=== PATIENT | male | born 1945 | race Caucasian/White ===

== ENCOUNTER 2018-03-05 07:51 | Emergency (ER) | payer MEDICARE, OTHER ==
[2018-03-05 08:06] VITALS: BP 147/82; PULSE 95; RESP 18; TEMP 97.1
[2018-03-05] MEDS ORDERED: LORazepam 2 MG/ML INJ IM STA (08:40)
--- NOTE | 2018-03-05 08:41 | ED ---
Recheck HPI <Dwight Medina - Last Filed: 03/05/18 08:43> - General Source: patient Mode of arrival: wheelchair Limitations: no limitations, physical limitation <Sara Lowery - Last Filed: 03/05/18 16:35> - General Chief Complaint: Recheck/Abnormal Lab/Rx Stated Complaint: insomnia Time Seen by Provider: 03/05/18 08:14 - History of Present Illness Initial Comments: 72-year-old male patient presents to the emergency department today for evaluation of insomnia. Patient states that he has had issues with insomnia chronically and is treated with a sleeping medication and generally takes morphine for his pain symptoms. Patient states that for the last 2 nights he has been unable to sleep. He states that he feels tired he just can't fall asleep. States he lays in bed awake. Patient states that his morphine was recently cut down from 3 tablets a day to 2 tablets a day and he feels this may be contribute eating. He denies any increased pain. Denies any physical symptoms. States he feels well other than he is just tired. He denies any increased stress, depression, suicidal thoughts, or homicidal ideation. He is requesting something to help him sleep. Patient denies any recent rash, fever, chills, shortness breath, chest pain, abdominal pain, nausea, vomiting, diarrhea , constipation, back pain, numbness, tingling, dizziness, weakness, hematuria, dysuria, urinary urgency, urinary frequency, headache, visual changes, or any other complaints. (Sara Lowery) - Related Data Home Medications Medication Instructions Recorded Confirmed Aspirin 81 mg PO DAILY 05/08/14 03/05/18 Fenofibrate Nanocrystallized 145 mg PO DAILY 05/08/14 03/05/18 [Fenofibrate] Amitriptyline HCl [Elavil] 75 mg PO HS 09/27/14 03/05/18 Dorzolamide HCl/Timolol Maleat 1 drop LEFT EYE BID 09/27/14 03/05/18 [Dorzolamide-Timolol Eye Drops] Flunisolide 1 spray NS BID 09/27/14 03/05/18 HYDROcodone/APAP 10-325MG [[place] 1 each PO Q6H PRN 09/27/14 03/05/18 10-325] MORPHINE ORAL SIDDHARTHA CONC 20mg/mL 60 mg PO Q6H PRN 09/27/14 03/05/18 [Roxanol Oral Soln Conc 20MG/ML] Temazepam 30 mg PO HS PRN 09/27/14 03/05/18 prednisoLONE ACETATE 1% OPHTH 1 drops LEFT EYE Q6H 09/27/14 03/05/18 [Pred Forte 1%] Previous Rx's Medication Instructions Recorded Ciprofloxacin HCl [Cipro] 250 mg PO Q12HR #10 tablet 09/28/14 Zolpidem [Ambien] 5 mg PO HS PRN #3 tab 03/05/18 Allergies Allergy/AdvReac Type Severity Reaction Status Date / Time No Known Allergies Allergy Verified 03/05/18 08:00 Review of Systems ROS Other: All systems not noted in ROS Statement are negative. <Dwight Medina - Last Filed: 03/05/18 08:43> ROS Other: All systems not noted in ROS Statement are negative. <Sara Lowery - Last Filed: 03/05/18 16:35> ROS Statement: Those systems with pertinent positive or pertinent negative responses have been documented in the HPI. Past Medical History Past Medical History: CVA/TIA, Hearing Disorder / Deafness, Hyperlipidemia Additional Past Medical History / Comment(s): insomnia; lower back pain; bronchitis; lumbago; optic neuro ischemia; allergic rhinitis; spinal stenosis of lumbar region; cataracts; poor/blurred vision; constipation; tendonitis; impaired fasting glycemia; carotid artery occlusion; History of Any Multi-Drug Resistant Organisms: None Reported Additional Past Surgical History / Comment(s): Right hand sx; colonoscopy; bilateral carotid endartectomies; Past Anesthesia/Blood Transfusion Reactions: No Reported Reaction Past Psychological History: No Psychological Hx Reported Smoking Status: Current every day smoker Past Alcohol Use History: None Reported Past Drug Use History: None Reported - Past Family History Daughter(s) Family Medical History: Unable to Obtain <Sara Lowery - Last Filed: 03/05/18 16:35> General Exam Limitations: no limitations, physical limitation General appearance: alert, in no apparent distress, other (This is a well- developed, well-nourished elderly male patient in no acute distress. Vital signs upon presentation are temperature 97.1F, pulse 95, respirations 18, blood pressure 147/82, pulse ox 97% on room air.) Eye exam: Present: normal appearance, PERRL, EOMI. Absent: scleral icterus, conjunctival injection, periorbital swelling ENT exam: Present: normal exam, normal oropharynx, mucous membranes moist Respiratory exam: Present: normal lung sounds bilaterally. Absent: respiratory distress, wheezes, rales, rhonchi, stridor Cardiovascular Exam: Present: regular rate, normal rhythm, normal heart sounds. Absent: systolic murmur, diastolic murmur, rubs, gallop, clicks GI/Abdominal exam: Present: soft, normal bowel sounds. Absent: distended, tenderness, guarding, rebound, rigid Neurological exam: Present: alert, oriented X3, CN II-XII intact Psychiatric exam: Present: normal affect, normal mood Skin exam: Present: warm, dry, intact, normal color. Absent: rash <Sara Lowery - Last Filed: 03/05/18 16:35> Course <Dwight Medina - Last Filed: 03/05/18 08:43> <Sara Lowery - Last Filed: 03/05/18 16:35> Vital Signs 03/05/18 08:01 Temperature 97.1 F L Pulse Rate 95 Respiratory 18 Rate Blood Pressure 147/82 O2 Sat by Pulse 97 Oximetry - Reevaluation(s) Reevaluation #1: 03/05/18 08:43 And P supervision: I did personally do a [id number] UL the patient did discuss findings with him and his friend was present. Patient is awake alert oriented times. Did discuss findings with him I do agree with the assessment and plan. (Dwight Medina) Medical Decision Making <Dwight Medina - Last Filed: 03/05/18 08:43> <Sara Lowery - Last Filed: 03/05/18 16:35> - Medical Decision Making 72-year-old male patient presents to the emergency department today for complaints of insomnia. Physical examination is unremarkable. Patient denies any psychiatric symptoms. Patient will be given an IM injection of Ativan. He' ll be given a three-day course of Ambien. He is instructed to follow-up with his primary care physician for recheck as soon as possible. He is instructed to return here immediately for any new, worsening, or concerning symptoms. He verbalizes understanding and agrees with this plan. (Sara Lowery) Disposition <Dwight Medina - Last Filed: 03/05/18 08:43> Is patient prescribed a controlled substance at d/c from ED?: Yes When asked, does pt state using other controlled substances?: Yes Time of Disposition: 08:41 <Sara Lowery - Last Filed: 03/05/18 16:35> Clinical Impression: Insomnia Disposition: HOME SELF-CARE Condition: Good Instructions: Insomnia (ED) Additional Instructions: Take medications as directed. Call physician on Tuesday for further instructions. Return here immediately for any new, worsening, or concerning symptoms. Prescriptions: Zolpidem [Ambien] 5 mg PO HS PRN #3 tab PRN Reason: Insomnia Referrals: [facility],Clinic [Primary Care Provider] - 1-2 days
== END 2018-03-05 08:55 | disposition home or self-care (01) ==
LOC: EC 07:51
DX: G47.00 Insomnia, unspecified (principal); E78.5 Hyperlipidemia, unspecified; F17.200 Nicotine dependence, unspecified, uncomplicated; Z79.51 Long term (current) use of inhaled steroids; Z79.52 Long term (current) use of systemic steroids; Z79.82 Long term (current) use of aspirin; Z79.899 Other long term (current) drug therapy; Z87.09 Personal history of other diseases of the respiratory system; Z86.69 Personal history of other diseases of the nervous system and sense organs; Z87.39 Personal history of other diseases of the musculoskeletal system and connective tissue
CPT/HCPCS: 99283; 96372; J2060

== ENCOUNTER 2018-05-22 16:40 | Inpatient (IN) | payer MEDICARE ==
[2018-05-22] MEDS ORDERED: SODIUM CHLORIDE 0.9% 1,000 ML IV STA (16:54)
--- NOTE | 2018-05-22 16:57 | ED ---
General Adult HPI - General Stated complaint: fall, altered mental status Time Seen by Provider: 05/22/18 16:54 Source: EMS, RN notes reviewed Mode of arrival: EMS Limitations: altered mental status - History of Present Illness Initial comments: Mr. Christ Montgomery is a 72-year-old male who presents to the ED for evaluation of head injury after fall. She reports that he lives by himself, he states that he recalls waking up this morning. He knows that he ate breakfast and was going about his normal activities throughout the day. He states that he does not recall falling, however his family found him on the ground and called 911. Patient has no recollection of how he fell, he doesn't believe he was experience any chest pain or palpitations in the morning but he doesn't know what led to his fall. He is uncertain of where he fell in his house. He was found in his home by his family. EMS was contacted by his family. Family did not arrive at bedside to provide any further history. EMS reports that upon arrival patient was a and O 1 though upon further talking he was able to recognize he was in ambulance, he is aware that he is in [place] and aware that the Pres. is Trump. - Related Data Home Medications Medication Instructions Recorded Confirmed Flunisolide 2 spray EA NOSTRIL DAILY 09/27/14 05/22/18 HYDROcodone/APAP 10-325MG [[place] 2 tab PO QID PRN 09/27/14 05/22/18 10-325] MORPHINE ORAL SIDDHARTHA CONC 20mg/mL 20 mg PO QID PRN 09/27/14 05/22/18 [Roxanol Oral Soln Conc 20MG/ML] Aspirin EC [Ecotrin Low Dose] 162 mg PO DAILY 05/22/18 05/22/18 Ensure 1 can PO DAILY 05/22/18 05/22/18 Melatonin 6 mg PO HS 05/22/18 05/22/18 Naloxone HCl [Narcan] 4 mg NASAL DIRECTED 05/22/18 05/22/18 diphenhydrAMINE HCL [Benadryl] 25 mg PO BID 05/22/18 05/22/18 traZODone HCL 50 mg PO HS 05/22/18 05/22/18 Allergies Allergy/AdvReac Type Severity Reaction Status Date / Time No Known Allergies Allergy Verified 05/22/18 17:15 Review of Systems ROS Statement: Those systems with pertinent positive or pertinent negative responses have been documented in the HPI. ROS Other: All systems not noted in ROS Statement are negative. Limitations: ROS unobtainable due to patients medical condition Respiratory: Denies: cough Cardiovascular: Denies: chest pain Endocrine: Denies: fatigue Gastrointestinal: Denies: vomiting Neurological: Reports: weakness Past Medical History Past Medical History: CVA/TIA, Hearing Disorder / Deafness, Hyperlipidemia Additional Past Medical History / Comment(s): insomnia; lower back pain; bronchitis; lumbago; optic neuro ischemia; allergic rhinitis; spinal stenosis of lumbar region; cataracts; poor/blurred vision; constipation; tendonitis; impaired fasting glycemia; carotid artery occlusion; History of Any Multi-Drug Resistant Organisms: None Reported Additional Past Surgical History / Comment(s): Right hand sx; colonoscopy; bilateral carotid endartectomies; Past Anesthesia/Blood Transfusion Reactions: No Reported Reaction Past Psychological History: No Psychological Hx Reported Smoking Status: Current every day smoker Past Alcohol Use History: None Reported Past Drug Use History: None Reported - Past Family History Daughter(s) Family Medical History: Unable to Obtain General Exam Limitations: altered mental status General appearance: alert, in no apparent distress Head exam: Present: normocephalic, other (abrasion and hematoma to left forehead ) Eye exam: Present: PERRL ENT exam: Present: normal exam Neck exam: Present: full ROM Respiratory exam: Absent: respiratory distress Cardiovascular Exam: Present: regular rate GI/Abdominal exam: Present: soft. Absent: distended Rectal exam: Present: deferred Extremities exam: Present: other (well healed right finger amputations) Neurological exam: Present: alert, other (oriented to self) Psychiatric exam: Present: normal affect Skin exam: Present: warm, dry Course Vital Signs 05/22/18 05/22/18 05/22/18 16:51 19:16 21:04 Temperature 97.6 F Pulse Rate 90 98 85 Respiratory 20 18 18 Rate Blood Pressure 134/80 156/107 150/119 O2 Sat by Pulse 97 95 95 Oximetry Medical Decision Making - Medical Decision Making Patient was seen and evaluated, history is obtained from the patient and EMS Patient was alone, had a fall at home confused, does not know events leading up to the fall, family at bedside to provide further history Labs and imaging revealed no acute injuries. No significant lab abnormalities, no evidence of UTI Patient repeatedly getting out of bed, somewhat disoriented - at this time I do not feel that the patient is safe for discharge home alone. Patient care was discussed with Kayli STUBBS who accepts the patient to observation for confusion and gait instability. - Lab Data Result diagrams: 05/22/18 17:00 05/22/18 17:00 Lab Results 05/22/18 05/22/18 05/22/18 Range/Units 17:00 17:00 17:00 WBC 9.3 (3.8-10.6) k/uL RBC 5.25 (4.30-5.90) m/uL Hgb 16.5 (13.0-17.5) gm/dL Hct 47.8 (39.0-53.0) % MCV 91.1 (80.0-100.0) fL MCH 31.5 (25.0-35.0) pg MCHC 34.6 (31.0-37.0) g/dL RDW 14.0 (11.5-15.5) % Plt Count 217 (150-450) k/uL Neutrophils % 82 % Lymphocytes % 13 % Monocytes % 4 % Eosinophils % 1 % Basophils % 0 % Neutrophils # 7.6 (1.3-7.7) k/uL Lymphocytes # 1.2 (1.0-4.8) k/uL Monocytes # 0.3 (0-1.0) k/uL Eosinophils # 0.1 (0-0.7) k/uL Basophils # 0.0 (0-0.2) k/uL PT 10.6 (9.0-12.0) sec INR 1.1 (<1.2) APTT 23.8 (22.0-30.0) sec Sodium 138 (137-145) mmol/L Potassium 4.3 (3.5-5.1) mmol/L Chloride 105 (98-107) mmol/L Carbon Dioxide 25 (22-30) mmol/L Anion Gap 8 mmol/L BUN 18 (9-20) mg/dL Creatinine 0.70 (0.66-1.25) mg/dL Est GFR (CKD-EPI)AfAm >90 (>60 ml/min/1.73 sqM) Est GFR (CKD-EPI)NonAf >90 (>60 ml/min/1.73 sqM) Glucose 112 H (74-99) mg/dL Calcium 10.7 H (8.4-10.2) mg/dL Total Bilirubin 0.9 (0.2-1.3) mg/dL AST 32 (17-59) U/L ALT 35 (21-72) U/L Alkaline Phosphatase 60 (38-126) U/L Troponin I (0.000-0.034) ng/mL Total Protein 7.2 (6.3-8.2) g/dL Albumin 4.5 (3.5-5.0) g/dL Urine Color Urine Appearance (Clear) Urine pH (5.0-8.0) Ur Specific [place] (1.001-1.035) Urine Protein (Negative) Urine Glucose (UA) (Negative) Urine Ketones (Negative) Urine Blood (Negative) Urine Nitrite (Negative) Urine Bilirubin (Negative) Urine Urobilinogen (<2.0) mg/dL Ur Leukocyte Esterase (Negative) Blood Type Blood Type Recheck Antibody Screen Spec Expiration Date 05/22/18 05/22/18 05/22/18 Range/Units 17:00 17:00 20:10 WBC (3.8-10.6) k/uL RBC (4.30-5.90) m/uL Hgb (13.0-17.5) gm/dL Hct (39.0-53.0) % MCV (80.0-100.0) fL MCH (25.0-35.0) pg MCHC (31.0-37.0) g/dL RDW (11.5-15.5) % Plt Count (150-450) k/uL Neutrophils % % Lymphocytes % % Monocytes % % Eosinophils % % Basophils % % Neutrophils # (1.3-7.7) k/uL Lymphocytes # (1.0-4.8) k/uL Monocytes # (0-1.0) k/uL Eosinophils # (0-0.7) k/uL Basophils # (0-0.2) k/uL PT (9.0-12.0) sec INR (<1.2) APTT (22.0-30.0) sec Sodium (137-145) mmol/L Potassium (3.5-5.1) mmol/L Chloride (98-107) mmol/L Carbon Dioxide (22-30) mmol/L Anion Gap mmol/L BUN (9-20) mg/dL Creatinine (0.66-1.25) mg/dL Est GFR (CKD-EPI)AfAm (>60 ml/min/1.73 sqM) Est GFR (CKD-EPI)NonAf (>60 ml/min/1.73 sqM) Glucose (74-99) mg/dL Calcium (8.4-10.2) mg/dL Total Bilirubin (0.2-1.3) mg/dL AST (17-59) U/L ALT (21-72) U/L Alkaline Phosphatase (38-126) U/L Troponin I <0.012 (0.000-0.034) ng/mL Total Protein (6.3-8.2) g/dL Albumin (3.5-5.0) g/dL Urine Color Yellow Urine Appearance Clear (Clear) Urine pH 6.5 (5.0-8.0) Ur Specific [place] 1.010 (1.001-1.035) Urine Protein Negative (Negative) Urine Glucose (UA) Negative (Negative) Urine Ketones Negative (Negative) Urine Blood Negative (Negative) Urine Nitrite Negative (Negative) Urine Bilirubin Negative (Negative) Urine Urobilinogen <2.0 (<2.0) mg/dL Ur Leukocyte Esterase Negative (Negative) Blood Type O Positive Blood Type Recheck No Antibody Screen NEGATIVE Spec Expiration Date 05/25/2018 - 230 Disposition Clinical Impression: Confusion, Fall at home Disposition: ADMITTED IP TO THIS [facility] Referrals: [facility],Clinic [Primary Care Provider] - 1-2 days Decision Time: 21:55
[2018-05-22 17:20] LABS: Basophils % (A) 0 %; Eosinophils # (A) 0.1 k/uL (0-0.7); Eosinophils % (A) 1 %; HCT 47.8 % (39.0-53.0); HGB 16.5 gm/dL (13.0-17.5); Lymphocytes # (A) 1.2 k/uL (1.0-4.8); Lymphocytes % (A) 13 %; MCH 31.5 pg (25.0-35.0); MCHC 34.6 g/dL (31.0-37.0); MCV 91.1 fL (80.0-100.0); Monocytes # (A) 0.3 k/uL (0-1.0); Monocytes % (A) 4 %; Neutrophils # (A) 7.6 k/uL (1.3-7.7); Neutrophils % (A) 82 %; Platelet Count 217 k/uL (150-450); RBC 5.25 m/uL (4.30-5.90); WBC 9.3 k/uL (3.8-10.6)
[2018-05-22 17:22] LABS: ALT 35 U/L (21-72); AST 32 U/L (17-59); Albumin 4.5 g/dL (3.5-5.0); Alkaline Phosphatase 60 U/L (38-126); Anion Gap 8 mmol/L; Blood Urea Nitrogen 18 mg/dL (9-20); Calcium 10.7 mg/dL (8.4-10.2); Carbon Dioxide 25 mmol/L (22-30); Chloride 105 mmol/L (98-107); Glucose 112 mg/dL (74-99); Potassium 4.3 mmol/L (3.5-5.1); Sodium 138 mmol/L (137-145); Total Bilirubin 0.9 mg/dL (0.2-1.3); Total Protein 7.2 g/dL (6.3-8.2)
[2018-05-22 17:23] LABS: INR 1.1 (<1.2); Partial Thromboplastin Time 23.8 sec (22.0-30.0); Prothrombin Time 10.6 sec (9.0-12.0)
--- NOTE | 2018-05-22 17:45 | CT ---
EXAMINATION TYPE: CT brain samuel eli DATE OF EXAM: 05/22/2018 COMPARISON: 09/26/[address] scan HISTORY: Fall, altered mental status. CT DLP: 1668 mGycm Automated exposure control for dose reduction was used. TECHNIQUE: CT scan of the head and cervical spine are performed without contrast. FINDINGS: There is cerebral cortical atrophy. There is patchy hypodensity in the white matter both cerebral hemispheres and more in the left parietal lobe. There is old 3 cm cortical infarct left post erior parietal lobe. There is no midline shift. There is no evidence of intracranial hemorrhage. The cervical vertebra have normal alignment. Posterior elements are intact. Disc spaces are fairly no rmal. There is motion artifact at the skull base. Skull base appears intact. Facet joints appear norm al. IMPRESSION: Cerebral atrophy. Chronic small vessel ischemia. Lacunar infarcts. Old left parietal infarct. No perez ge. Negative CT scan of the cervical spine. Dense carotid vascular calcification noted.
--- NOTE | 2018-05-22 18:02 | XR ---
EXAMINATION TYPE: XR chest 1V portable DATE OF EXAM: 05/22/2018 COMPARISON: 09/26/2014 HISTORY: Altered mental status fall. History of CVA. TECHNIQUE: Single frontal view of the chest is obtained. FINDINGS: There is coarse pulmonary interstitial density. There is no heart failure. Costophrenic an gles are clear. Thoracic aorta is atheromatous. There is no pleural effusion. There are chest leads. IMPRESSION: Pulmonary interstitial fibrosis. There is improved inspiration compared to old exam.
[2018-05-22 20:35] LABS: Appearance,Urine Clear (Clear); Bilirubin,Urine Negative (Negative); Blood,Urine Negative (Negative); Color,Urine Yellow; Glucose,Urine (UA) Negative (Negative); Ketones,Urine Negative (Negative); Leukocyte Esterase,Urine Negative (Negative); Nitrite,Urine Negative (Negative); PH, Urine 6.5 (5.0-8.0); Protein,Urine Negative (Negative); Urobilinogen,Urine <2.0 mg/dL (<2.0)
[2018-05-22] MEDS ORDERED: NALOXONE 0.4 MG/ML 1 ML VIAL IV PRN (21:50)
[2018-05-22] MEDS: MELATONIN 3 MG TABLET PO SCH (23:43)
[2018-05-22] MEDS: traZODone HCL 50 MG TAB PO SCH (23:43)
[2018-05-23] MEDS ORDERED: HALOPERIDOL LACTATE 5 MG/ML 1 ML VIAL IM ONE (03:10)
[2018-05-23] MEDS: HYDROcodone/APAP 5-325MG 1 EACH TAB PO PRN (11:55)
[2018-05-23] MEDS: ALPRAZolam 0.25 MG TAB PO PRN (11:56)
[2018-05-23] MEDS ORDERED: HYDROcodone/APAP 10-325MG 1 EACH TAB PO PRN (16:45)
[2018-05-23] MEDS ORDERED: MORPHINE ORAL SOLN 10 MG/5 ML CUP PO PRN (16:45)
[2018-05-23] MEDS ORDERED: NON-FORMULARY DRUG (Naloxone Hcl [Narcan] 4 MG) NASAL SCH (16:45)
[2018-05-23] MEDS ORDERED: NON-FORMULARY DRUG (Ensure 1 CAN) PO SCH (17:00)
--- NOTE | 2018-05-23 17:23 | HP ---
HISTORY AND PHYSICAL CHIEF COMPLAINT: Fall and change in mental status. HISTORY OF PRESENT ILLNESS: This 72-year-old gentleman with a past medical history of multiple medical problems including strokes, history of CVA, TIA, hyperlipidemia, anxiety, depression, apparently living by himself and legally blind. The patient walks with a cane. The patient also had a home nurse apparently. The patient was brought to [facility] with complaints of fall and change in mental status. Patient was confused and slightly belligerent. The patient's neighbors apparently found him on the floor. A CT scan of the brain was done in the ER which showed lacunar infarct and old left parietal infarct. There is no history of fever or rigors. No history of headache, loss of consciousness, or seizures. PAST MEDICAL HISTORY: History of CVA, TIA, history of hyperlipidemia, hearing defect. MEDICATIONS PRIOR TO ADMISSION: 1. Trazodone 50 mg p.o. at bedtime. 2. Benadryl 25 mg b.i.d. 3. Narcan 4 mg p.o. 4. Melatonin 6 mg at bedtime. 5. Morphine 20 mg q.i.d. p.r.n. 6. Hydrocodone 10 mg 2 tablets q.i.d. p.r.n. 7. Flunisolide 2 sprays daily. 8. Ensure p.o. daily. 9. Ecotrin 162 mg p.o. daily. ALLERGIES: None. FAMILY HISTORY, SOCIAL HISTORY, REVIEW OF SYSTEMS: Unable to obtain because the patient is confused. Per chart, history of smoking. PHYSICAL EXAM: Patient is alert, oriented x2. Pulse is 94, blood pressure 115/84, respirations 18, temperature 98.2, pulse ox 99% on room air. HEENT: Conjunctivae normal. Oral mucosa moist. NECK: No jugular venous distention. No lymph nodes palpable. CARDIOVASCULAR: S1 and S2 muffled. LUNGS: Breath sounds diminished at the bases. Few scattered rhonchi. ABDOMEN: Soft, nontender. No mass felt. EXTREMITIES: Legs no edema. NERVOUS SYSTEM: Higher functions as mentioned earlier. Patient is blind. Moves all 4 limbs. No focal motor deficits appreciated. SKIN: No ulcer, rash or bleeding. LYMPHATICS: Joints, no active deforming arthropathy. LABS: CBC within normal limits. Calcium is 10.7. ASSESSMENT: 1. Change in mental status, fall, with possible acute metabolic encephalopathy, possible acute transient ischemic attack. 2. History of cerebrovascular accident, transient ischemic attack. 3. Old left parietal lobe infarct on the CT scan. 4. Bilateral blindness. 5. Hyperlipidemia. 6. History of insomnia. 7. Chronic back pain, spinal stenosis. 8. Glaucoma. 9. Carotid artery occlusion history. 10.Anxiety, depression. 11.History of nicotine dependence, ongoing. RECOMMENDATIONS AND DISCUSSION: In this 72-year-old gentleman who presented with multiple complex medical issues, we will monitor the patient closely. Continue the current treatment. I recommend antiplatelet agents, complete neurovascular workup, neurology evaluation. Guarded prognosis. Further recommendations to follow. MMODL / IJN: [id number] /
[2018-05-23] MEDS: NICOTINE 14MG/24HR PATCH TRANSDERM SCH (17:25)
[2018-05-23] MEDS: ASPIRIN 81 MG PO SCH (17:25)
[2018-05-23] MEDS: FLUTICASONE 50MCG/SPRAY NASAL 16GM EA NOSTRIL SCH (17:40)
--- NOTE | 2018-05-23 19:33 | P.CNNES ---
History of Present Illness Consult date: 05/23/18 History of Present Illness: Is a 72-year-old right-handed white male who states he fell and hit his head on the floor causing her bump on his left forehead. He reports he had no loss of consciousness. He is unable to tell how he fell. He lives alone and he states his ict managers found him on the floor. She called EMS and he came to the hospital and wishes to leave. The patient is legally blind. He apparently walks with the assistance of a cane. When asked if that's the reason he fell he states no easy shadows and is able to maneuver at home. He denies any previous falls. Denied any new weakness or numbness. He has a history of old stroke. 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 He has a history of carotid stenosis. Review of Systems Constitutional: Denies chills, Denies fever Eyes: bilateral loss of vision, denies pain Ears, nose, mouth and throat: Denies headache, Denies sore throat Cardiovascular: Denies chest pain, Denies shortness of breath Respiratory: Denies cough Gastrointestinal: Denies abdominal pain, Denies diarrhea, Denies nausea, Denies vomiting Integumentary: Reports as per HPI, Denies pruritus, Denies rash Neurological: Reports as per HPI, Denies numbness, Denies weakness Psychiatric: Denies anxiety, Denies depression Past Medical History Past Medical History: CVA/TIA, Eye Disorder, Hearing Disorder / Deafness, Hyperlipidemia Additional Past Medical History / Comment(s): Pt states he has had a stroke and 2 TIAs, HOONAH bilaterally, insomnia, chronic lower back pain, spinal stenosis, legally blind bilaterally, glaucoma bilaterally, caratid re-occlusion, bronchitis, allergic rhinitis; constipation. History of Any Multi-Drug Resistant Organisms: None Reported Additional Past Surgical History / Comment(s): Right hand finger amps, colonoscopy, bilateral carotid endartectomies, cataract removals Past Anesthesia/Blood Transfusion Reactions: No Reported Reaction Smoking Status: Current every day smoker - Past Family History Mother History Unknown: Yes Father History Unknown: Yes Daughter(s) Family Medical History: Unable to Obtain Medications and Allergies Home Medications Medication Instructions Recorded Confirmed Type Flunisolide 2 spray EA NOSTRIL DAILY 09/27/14 05/22/18 History HYDROcodone/APAP 10-325MG [[place] 2 tab PO QID PRN 09/27/14 05/22/18 History 10-325] MORPHINE ORAL SIDDHARTHA CONC 20mg/mL 20 mg PO QID PRN 09/27/14 05/22/18 History [Roxanol Oral Soln Conc 20MG/ML] Aspirin EC [Ecotrin Low Dose] 162 mg PO DAILY 05/22/18 05/22/18 History Ensure 1 can PO DAILY 05/22/18 05/22/18 History Melatonin 6 mg PO HS 05/22/18 05/22/18 History Naloxone HCl [Narcan] 4 mg NASAL DIRECTED 05/22/18 05/22/18 History diphenhydrAMINE HCL [Benadryl] 25 mg PO BID 05/22/18 05/22/18 History traZODone HCL 50 mg PO HS 05/22/18 05/22/18 History Allergies Allergy/AdvReac Type Severity Reaction Status Date / Time No Known Allergies Allergy Verified 05/22/18 17:15 Physical Examination - Vital Signs Vital Signs: Vital Signs Temp Pulse Pulse Resp BP BP BP 05/23/18 15:45 98.2 F 94 18 169/84 05/23/18 08:00 97.9 F 91 18 132/72 05/23/18 03:40 16 05/23/18 00:00 16 05/22/18 23:13 98.8 F 86 16 148/83 05/22/18 22:08 97.6 F 91 16 157/81 05/22/18 21:04 85 18 150/119 Pulse Ox 05/23/18 15:45 99 05/23/18 08:00 95 05/23/18 03:40 05/23/18 00:00 05/22/18 23:13 97 05/22/18 22:08 95 05/22/18 21:04 95 Intake and Output 05/23/18 05/23/18 05/23/18 06:59 14:59 22:59 Other: Voiding Method Urinal # Voids 1 Weight 63.503 kg - Constitutional General appearance: disheveled - EENT EENT: hearing intact - Respiratory Respiratory: lungs clear - Cardiovascular Cardiovascular: regular rate - Neurologic Mental status: He was awake alert and oriented 3. There was no a aphasia or dysarthria. Cranial nerve examination: face symmetric, other (The patient was blind in the left eye and could count fingers in the right eye) Speech examination: intact Detailed motor examination: grossly full strength in all extremities - Psychiatric Psychiatric: agitated Results - Laboratory Findings CBC and BMP: 05/22/18 17:00 05/22/18 17:00 Abnormal Lab Findings: Abnormal Labs 05/22/18 17:00 Glucose 112 H Calcium 10.7 H Assessment and Plan (1) Fall at home Current Visit: Yes Status: Acute SNOMED Code(s): 61174983 (2) Head contusion Current Visit: Yes Status: Acute SNOMED Code(s): 819678709 (3) Chronic back pain Current Visit: Yes Status: Acute SNOMED Code(s): 515514489 Plan: The patient is a 72-year-old man with multiple medical problems who presents with history of fall at home with bruised her left forehead region. He had a CT of the brain in the emergency room which showed old stroke. The patient is legally blind and living alone. He gives no history to suggest stroke. Is possible he may have had a syncopal event or a mechanical fall. He is admitted to the hospital for possible TIA. The patient is on narcotics for chronic back pain.
[2018-05-23] MEDS: MELATONIN 3 MG TABLET PO SCH (20:13)
[2018-05-23] MEDS: diphenhydrAMINE 25 MG CAP PO SCH (20:13)
[2018-05-23] MEDS: traZODone HCL 50 MG TAB PO SCH (20:13)
[2018-05-23] MEDS: HEPARIN SODIUM,PORCINE 5,000 UNIT/ML 1 ML VIAL SQ SCH (20:13)
[2018-05-23] MEDS ORDERED: QUEtiapine 25 MG TAB PO SCH (21:00)
[2018-05-24] MEDS ORDERED: ALPRAZolam 0.25 MG TAB ONE (00:55)
[2018-05-24 08:32] LABS: Basophils % (A) 0 %; Eosinophils % (A) 0 %; HCT 49.2 % (39.0-53.0); HGB 16.8 gm/dL (13.0-17.5); Lymphocytes # (A) 1.4 k/uL (1.0-4.8); Lymphocytes % (A) 15 %; MCH 31.7 pg (25.0-35.0); MCHC 34.1 g/dL (31.0-37.0); MCV 92.8 fL (80.0-100.0); Mean Platelet Volume 6.9; Monocytes # (A) 0.7 k/uL (0-1.0); Monocytes % (A) 7 %; Neutrophils # (A) 7.1 k/uL (1.3-7.7); Neutrophils % (A) 76 %; Platelet Count 222 k/uL (150-450); RDW 14.3 % (11.5-15.5); WBC 9.3 k/uL (3.8-10.6)
[2018-05-24] MEDS: HEPARIN SODIUM,PORCINE 5,000 UNIT/ML 1 ML VIAL SQ SCH ×2 (08:45→19:52)
[2018-05-24] MEDS: FLUTICASONE 50MCG/SPRAY NASAL 16GM EA NOSTRIL SCH (08:45)
[2018-05-24] MEDS: PANTOPRAZOLE 40 MG TABLET PO SCH (08:51)
[2018-05-24] MEDS: ASPIRIN 81 MG PO SCH (08:51)
[2018-05-24] MEDS: diphenhydrAMINE 25 MG CAP PO SCH (08:51)
[2018-05-24] MEDS: NICOTINE 14MG/24HR PATCH TRANSDERM SCH (08:52)
[2018-05-24 09:20] LABS: Anion Gap 9 mmol/L; Blood Urea Nitrogen 22 mg/dL (9-20); Calcium 10.1 mg/dL (8.4-10.2); Carbon Dioxide 27 mmol/L (22-30); Chloride 104 mmol/L (98-107); Glucose 93 mg/dL (74-99); Potassium 4.2 mmol/L (3.5-5.1); Sodium 140 mmol/L (137-145)
--- NOTE | 2018-05-24 10:32 | ECHOF ---
Referral Reason:Stroke MEASUREMENTS -------- HEIGHT: 162.6 cm WEIGHT: 63.5 kg BP: 138/72 IVSd: 1.2 cm (0.6 - 1.1) LVIDd: 3.7 cm (3.9 - 5.3) LVPWd: 1.3 cm (0.6 - 1.1) IVSs: 1.6 cm LVIDs: 2.2 cm LVPWs: 1.6 cm LAESV Index (A-L): 16.97 ml/m Ao Diam: 4.4 cm (2.0 - 3.7) AV Cusp: 2.1 cm (1.5 - 2.6) LA Diam: 2.5 cm (2.7 - 3.8) MV E Travis: 0.81 m/s MV DecT: 278 ms MV A Travis: 1.16 m/s MV E/A Ratio: 0.70 RAP: 5.00 mmHg RVSP: 12.30 mmHg FINDINGS -------- Sinus rhythm. This was a technically adequate study. Pt. not compliant. The left ventricular size is normal. There is mild concentric left ventricular hypertrophy. Overa ll left ventricular systolic function is normal with, an EF between 55 - 60 %. The right ventricle is normal in size and function. Normal LA size by volume 22+/-6 ml/m2. The right atrium is normal in size. Aortic valve is trileaflet and is mildly thickened. There is no evidence of aortic regurgitation. There is no evidence of aortic stenosis. The mitral valve leaflets are mildly thickened. There is trace to mild mitral regurgitation. Trace tricuspid regurgitation present. Right ventricular systolic pressure is normal at < 35 mmHg. There is no evidence of pulmonary hypertension. Trace/mild (physiologic) pulmonic regurgitation. The aortic root size is normal. Normal inferior vena cava with normal inspiratory collapse consistent with estimated right atrial pre ssure of 5 mmHg. There is no pericardial effusion. CONCLUSIONS -------- 1. Sinus rhythm. 2. This was a technically adequate study. 3. Pt. not compliant. 4. The left ventricular size is normal. 5. There is mild concentric left ventricular hypertrophy. 6. Overall left ventricular systolic function is normal with, an EF between 55 - 60 %. 7. Normal LA size by volume 22+/-6 ml/m2. 8. Aortic valve is trileaflet and is mildly thickened. 9. The mitral valve leaflets are mildly thickened. 10. There is trace to mild mitral regurgitation. 11. Trace tricuspid regurgitation present. 12. Right ventricular systolic pressure is normal at < 35 mmHg. 13. There is no evidence of pulmonary hypertension. 14. Trace/mild (physiologic) pulmonic regurgitation. 15. The aortic root size is normal. 16. There is no pericardial effusion. TELEPHONE STATION INSTALLER: George Crespo RDCS
[2018-05-24 10:50] LABS: Appearance,Urine Clear (Clear); Bilirubin,Urine Negative (Negative); Blood,Urine Negative (Negative); Color,Urine Yellow; Glucose,Urine (UA) Negative (Negative); Ketones,Urine 1+ (Negative); Leukocyte Esterase,Urine Negative (Negative); Nitrite,Urine Negative (Negative); PH, Urine 6.5 (5.0-8.0); Protein,Urine Negative (Negative); Specific Gravity,Urine 1.015 (1.001-1.035); Urobilinogen,Urine <2.0 mg/dL (<2.0)
[2018-05-24 11:06] LABS: Amphetamine Screen,Urine Not Detected (NotDetected); Barbiturate Screen,Urine Not Detected (NotDetected); Benzodiazepines Screen,Urine Detected (NotDetected); Cocaine Screen,Urine Not Detected (NotDetected); Methadone Screen, Urine Not Detected (NotDetected); Opiate Screen,Urine Not Detected (NotDetected); Oxycodone Screen, Urine Not Detected (NotDetected); Phencyclidine Screen,Urine Not Detected (NotDetected); Tricyclic Antidepressant,Urine Not Detected (NotDetected); Urn Cannabinoid Scrn Not Detected (NotDetected)
--- NOTE | 2018-05-24 11:50 | US ---
EXAMINATION TYPE: US carotid duplex BILAT DATE OF EXAM: 05/24/2018 COMPARISON: US carotid 27/12/2013 CLINICAL HISTORY: stroke. EXAM MEASUREMENTS: RIGHT: Peak Systolic Velocity (PSV) cm/sec ----- Right CCA: occluded ----- Right ICA: occluded ----- Right ECA: retrograde flow ICA/CCA ratio: -- RIGHT: End Diastole cm/sec ----- Right CCA: occluded ----- Right ICA: occluded ----- Right ECA: retrograde flow LEFT: Peak Systolic Velocity (PSV) cm/sec ----- Left CCA: occluded ----- Left ICA: occluded ----- Left ECA: 42.6 ICA/CCA ratio: -- LEFT: End Diastole cm/sec ----- Left CCA: occluded ----- Left ICA: occluded ----- Left ECA: 14.2 VERTEBRALS (direction of flow): Right Vertebral: Antegrade Left Vertebral: Antegrade Rhythm: Normal Severe atherosclerotic plaque throughout. Bilateral occlusion of CCA's and ICA's. Retrograde flow in right ECA. Grayscale, color Doppler, spectral Doppler imaging performed. No flow noted in the distribution of th e common and internal carotid arteries on the right and left. IMPRESSION: Right and left common carotid artery occlusion extending into the internal carotid arter y
--- NOTE | 2018-05-24 16:59 | P.CN ---
Psychiatric Consult - . Consult date: 05/24/18 Consult:: 05/24/18 16:39 Identification: Patient is a 72-year-old male who was found at home on the floor by neighbors after he had fallen. Patient was confused and belligerent when he was brought to the emergency room. Reason for Consult: Confusion History of Present Illness: Patient's chart was reviewed, patient was seen and interviewed in his room no family members were present. Patient states he does not know why he fell at home, patient states that he resides alone in an apartment and has the last 17 years. He states that he has a carbon capture power plant operator for 2 days a week to assist with his shopping, cleaning and laundry. She is there for about 2 hours and a nurse comes every other week to put his medications in pillbox. Patient states that he does not "when I asked him what he ate he told me had he states that he won't eat wheels on meals and states that he handled for every meal. Patient states that he sees shadows from his right eye nothing from his left eye and does have a hearing problem but is unable to afford hearing aids. Patient cannot tell me if he was dizzy, tripped or why he fell at home. He also does not recall when he fell. Patient states that he's had trouble sleeping all his life, he does not have any nightmares or flashbacks to his time in the service. Patient states that he takes medication to assist with his sleep and reports that he does sleep fairly well when he is at home. He states that his sleep did not worsen when his vision declined. Patient reports that he has never been treated for depression and does not currently endorse any symptoms of depression does not endorse any symptoms of sky, psychosis, anxiety or OCD. Patient states that 17 years ago when he first moved into this apartment he did not feel like living and took 18 Lehr in an overdose attempt, he states he woke up the next day and didn't have any pain for several days and never sought treatment and was never treated. He states he won't do that again and states that he currently has no suicidal ideation. Patient stated that he wishes to return home and sees no difficulties with his current living situation. Past Psychiatric History: Patient denies any prior inpatient psychiatric admissions or outpatient counseling Past Medical/Surgical History: Patient has a history of CVA and on computed tomography scan had a left parietal infarct and lacunar infarcts that were old and small vessel ischemia; hyperlipidemia, legally blind, hearing deficit, loss of fingers on the right hand in industrial accident, spinal stenosis, status post bilateral carotid endarterectomy Social History: Patient states he's been living in his own apartment for the last 17 years. He states he's been on 2 occasions and both times. He has 3 daughters from his first marriage and only has contact with one daughter. States he has no contact with his other 2 daughters. 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 Patient was able to tell me to the hour how long he served in the . Patient states that after he returned home he began working in a factory and this is when he lost his fingers in an industrial accident shortly after he began working there. 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 Patient states he retired 17 years ago when he moved into his apartment. Substance Use History: patient states that he does not use any alcohol and denies any drug use. Patient states he does use tobacco products. Mental status: Appearance/Attitude: Patient is lying on his right side in the hospital bed with the television remote under his ear so he can hear, is in no acute distress and was cooperative during the interview Behavior: Patient did not exhibit any psychomotor agitation or retardation Speech/Language: Patient's speech was spontaneous of normal volume and rhythm and he was coherent Thought Process: Patient was goal-directed there is no evidence of loose association or flight of ideas Thought Content: Patient denied any auditory or visual hallucinations and no delusions or paranoid ideation were elicited. Patient stated that he was not feeling depressed, denied feeling hopeless or helpless and stated that he's had difficulty sleeping all his life but sleeps fairly well using the current medications that he's been prescribed. Suicidal/Homicidal Ideation: Patient denied any current suicidal or homicidal ideation Sensorium/Cognition: Patient was alert and oriented to person, date, situation and place.. Patient was able to tell me who the current president was but refused to say his name as well as the past 2 presidents. Patient was able to tell me his date of discharge from the as well as the number of months , days and hours he served in the [employer] in [facility]. Patient states that he needs to provide a detailed accounting of how his money is spent for his current housing. Patient states that he does take his medications at home. A MOCA was not performed due to the patient's visual impairment. Mood/Affect: Patient's mood was pleasant and his affect is appropriate to his mood Insight/Judgment: Patient's insight and judgment are fair Assessment: Patient has been living in his own apartment. The last 17 years and has a caregiver who comes in twice a week for 2 hours to assist with his cleaning, laundry and grocery shopping. Patient also has a visiting nurse who comes in every other week to set up his medications. Patient states to me that he does not cook for himself and states that he does not like Meals on Wheels and so is only eating ham for every meal. Patient was cooperative during the interview with me and stated that he wished to return home. Patient is legally blind seeing shadows from his right eye no vision in his left eye and is hard of hearing and does not have hearing aids. Per nursing staff patient was belligerent and refusing to take medication yesterday but has been taking his medications today and has been cooperative. Patient does have a health and safety tech. Diagnosis: altered mental status, now resolved Plan: patient is not endorsing any symptoms of psychosis, depression, sky or anxiety. Patient is not currently suicidal or homicidal. Patient is alert and oriented and is not currently confused. Patient does not require transfer to inpatient psychiatric unit. Patient currently is taking trazodone 50 mg and melatonin 3 mg to assist with his sleep which I would continue. Patient is also been taking Benadryl 25 mg twice a day at home I'm unable to determine why he is taking this but Benadryl can certainly cause confusion in the elderly. Would also be cautious of the use of benzodiazepines in a patient who is elderly and taking pain medication. I see no need for any additional psychotropic medication at this time. Patient has limited assistance at home, he has a optometrist/practice owner for only 2 hours twice a week and states that he is only eating ham and does not cook for himself and does not eat Meals on Wheels. Patient could certainly benefit from increased services and assistance at home or live in a more supervised living situation. 05/24/18 16:44 05/24/18 16:54 05/24/18 16:57
--- NOTE | 2018-05-24 17:03 | PN ---
PROGRESS NOTE DATE OF SERVICE: 05/24/2018 This 72-year-old gentleman who was admitted with change in mental status is being closely monitored. The patient is slightly confused also. Neurovascular workup is in progress. A carotid Doppler showed right and left common carotid occlusion extending into internal carotid artery. Psychiatric evaluation in progress also. No chest pain. No palpitations. PHYSICAL EXAMINATION: Patient is alert and oriented x2. Pulse 94, blood pressure 146/73, respiration 15, temperature 98.2, pulse ox 94% on room air. HEENT: Conjunctivae normal. Oral mucosa moist. NECK: No jugular venous distention. No carotid bruit. No lymph node enlargement. CARDIOVASCULAR SYSTEM: S1, S2 muffled. RESPIRATORY SYSTEM: Breath sounds diminished at the bases. No rhonchi. No crackles. ABDOMEN: Soft, non-tender. No mass palpable. LEGS: No edema. No swelling. NERVOUS SYSTEM: Mild diffuse weakness. LABS: CBC and BMP within normal limits. ASSESSMENT: 1. Change in mental status and fall with possible acute metabolic encephalopathy, possible acute transient ischemic attack. 2. History of cerebrovascular accident, transient ischemic attack. 3. Old left parietal lobe infarct on CT scan. 4. Bilateral carotid stenosis. 5. Bilateral blindness. 6. Hyperlipidemia. 7. History of insomnia. 8. Chronic back pain and spinal stenosis. 9. Glaucoma. 10.Anxiety, depression. 11.History of nicotine dependence, ongoing. 12.FULL CODE. RECOMMENDATIONS AND DISCUSSION: In this 72-year-old gentleman who presented with multiple medical issues, at this time I recommend to continue current medications, continue symptomatic treatment. Continue with antiplatelet agents. I will add a small dose of Lipitor to the current regimen. Otherwise, closely follow with Neurology and Psychiatry. Lipid profile. fiber worker is also being consulted to evaluate the home situation. Apparently patient lives alone with some help of some neighbors. Once the evaluation by the above-mentioned consultants and aids social worker is completed, the patient will be discharged home. See orders for further details. Prognosis guarded. MMODL / IJN: [id number] /
--- NOTE | 2018-05-24 17:42 | CONS ---
CONSULTATION This is a 72-year-old gentleman, legally blind, who was brought in to the hospital because he fell down at home. He walks with a cane. No history of TIA or amaurosis fugax. The patient has history of stroke in the past. The patient has multiple medical problem in the past. The patient also has a history of CVA in the past. The patient has history of hyperlipidemia, history of chronic back pain and history of depression. The patient had a CT scan of the brain which showed her chronic small- vessel disease and also patient had a carotid ultrasound, which shows common and both internal are occluded. PHYSICAL EXAMINATION: Patient is legally blind. NECK: Supple trachea central. CHEST: Clear. ABDOMEN: Soft. Normal motor function. Carotid ultrasound shows bilateral common and internal artery occlusion most likely chronically and patient has a this CT of brain showed chronic small-vessel disease. At this point, patient does not need any vascular intervention. I will follow with you. YURIDIA / IJN: [id number] /
[2018-05-24] MEDS: ATORVASTATIN 20 MG TAB PO SCH (18:00)
[2018-05-24] MEDS: HYDROcodone/APAP 5-325MG 1 EACH TAB PO PRN (19:55)
[2018-05-24] MEDS: traZODone HCL 50 MG TAB PO SCH (19:55)
[2018-05-24] MEDS: MELATONIN 3 MG TABLET PO SCH (19:55)
--- NOTE | 2018-05-24 20:09 | EEG ---
ELECTROENCEPHALOGRAM REPORT DATE OF EE05/24/2018. REFERRING PHYSICIAN: Dr. Duncan. CONSULTING AND INTERPRETING PHYSICIAN: Dr. Tra Allen. INDICATION FOR EXAMINATION: This patient is a 72-year-old male being evaluated for a recent episode of fall. Patient has history of stroke in the past. AGE: [age]. EEG FINDINGS: A routine 21 channel awake digital EEG recording was accomplished utilizing the 10-20 international system with bipolar and referential montages. The background activity in the most alert resting state consists of a low to medium amplitude, poorly-developed and poorly-sustained 5-6 Hz activity over the posterior head region. This posterior rhythm attenuates minimally to eye opening. There is a small amount of low amplitude 18-20 Hz beta activity seen maximally over the anterior head regions. Muscle and movement artifact was observed on a few occasions during the tracing. Hyperventilation was not performed. Photic stimulation at flash frequencies of 2-30 Hz produced a minimal occipital driving response. No epileptiform discharges were seen. IMPRESSION: This EEG is moderately abnormal in a diffuse fashion due to slowing of the EEG background. The EEG failed to reveal any focal, lateralized or epileptiform abnormalities. Clinical correlation is recommended. MMODL / IJN: [id number] /
--- NOTE | 2018-05-24 21:12 | P.PN ---
Subjective Progress Note Date: 05/24/18 The patient is a 72-year-old man admitted to the hospital yesterday with fall and head concussion. The patient denies any headache. He states he wishes to go home. The patient has been living alone and is legally blind. He had a carotid ultrasound today which showed bilateral carotid stenosis. Vascular surgery has been consulted the patient has had a CAT scan of the brain which showed old left parietal infarct. There was no every at evidence of hemorrhage or subdural. Objective - Vital Signs Vital signs: Vital Signs Temp 98.2 F 05/24/18 07:21 Pulse 94 05/24/18 16:20 Resp 16 05/24/18 16:20 BP 139/67 05/24/18 15:10 Pulse Ox 93 L 05/24/18 15:10 Intake & Output 05/24/18 05/24/18 05/25/18 06:59 18:59 06:59 Intake Total 240 160 Balance 240 160 Intake: Oral 240 160 Other: Voiding Method Urinal # Voids 1 3 - Constitutional General appearance: Present: cooperative, disheveled - EENT Eyes: Present: edentulous, EOMI, poor dentition ENT: Present: hearing grossly normal - Respiratory Respiratory: bilateral: CTA - Cardiovascular Rhythm: regular - Neurologic Neurologic: Present: CNII-XII intact, focal deficits (Patient is legally blind) - Musculoskeletal Musculoskeletal: Present: strength equal bilaterally - Psychiatric Psychiatric: Present: A&O x's 3 - Labs CBC & Chem 7: 05/24/18 07:41 05/24/18 07:41 Labs: Abnormal Lab Results - Last 24 Hours (Table) 05/24/18 05/24/18 Range/Units 07:41 09:00 BUN 22 H (9-20) mg/dL Urine Ketones 1+ H (Negative) U Benzodiazepines Scrn Detected H (NotDetected) Assessment and Plan (1) Fall at home Current Visit: Yes Status: Acute SNOMED Code(s): 12624024 (2) Head contusion Current Visit: Yes Status: Acute SNOMED Code(s): 318870750 (3) Chronic back pain Current Visit: Yes Status: Acute SNOMED Code(s): 399457135 Plan: The patient is a 72-year-old man with multiple medical problems who presents with history of fall at home with bruised her left forehead region. Patient is asymptomatic. Patient does have bilateral carotid stenosis. Vascular surgery is been consulted. The patient had an EEG today which was moderately slow at did not have any epileptiform activity. The patient is eager to go home. The patient is in need of more director of social work to accommodate his handicaps.
[2018-05-25] MEDS: ALPRAZolam 0.25 MG TAB PO PRN (01:49)
[2018-05-25 02:33] LABS: Cholesterol 176 mg/dL (<200); HDL Cholesterol 41 mg/dL (40-60); LDL Cholesterol,Calculated 113 mg/dL (0-99); Triglycerides 111 mg/dL (<150)
[2018-05-25] MEDS: HEPARIN SODIUM,PORCINE 5,000 UNIT/ML 1 ML VIAL SQ SCH ×2 (07:44→21:14)
[2018-05-25] MEDS: FLUTICASONE 50MCG/SPRAY NASAL 16GM EA NOSTRIL SCH (07:44)
[2018-05-25] MEDS: NICOTINE 14MG/24HR PATCH TRANSDERM SCH (07:44)
[2018-05-25] MEDS: PANTOPRAZOLE 40 MG TABLET PO SCH (07:48)
[2018-05-25] MEDS: ASPIRIN 81 MG PO SCH (07:48)
[2018-05-25] MEDS: ATORVASTATIN 20 MG TAB PO SCH (07:49)
[2018-05-25] MEDS: HYDROcodone/APAP 5-325MG 1 EACH TAB PO PRN ×3 (09:11→21:17)
[2018-05-25] MEDS: PANTOPRAZOLE SODIUM 40 MG GRANULE PKT PO SCH (12:25)
[2018-05-25 14:09] VITALS: BMI 24.0
[2018-05-25] MEDS: TAMSULOSIN 0.4 MG CAP.ER.24H PO SCH (16:04)
[2018-05-25] MEDS: FINASTERIDE 5 MG TAB PO SCH (17:42)
[2018-05-25] MEDS: traZODone HCL 50 MG TAB PO SCH (21:17)
[2018-05-25] MEDS: MELATONIN 3 MG TABLET PO SCH (21:46)
[2018-05-26] MEDS: HYDROcodone/APAP 5-325MG 1 EACH TAB PO PRN ×2 (05:49→19:28)
[2018-05-26] MEDS: NICOTINE 14MG/24HR PATCH TRANSDERM SCH (08:27)
[2018-05-26] MEDS: ASPIRIN 81 MG PO SCH (08:29)
[2018-05-26] MEDS: TAMSULOSIN 0.4 MG CAP.ER.24H PO SCH (08:29)
[2018-05-26] MEDS: ATORVASTATIN 20 MG TAB PO SCH (08:29)
[2018-05-26] MEDS: PANTOPRAZOLE SODIUM 40 MG GRANULE PKT PO SCH (08:30)
[2018-05-26] MEDS: FINASTERIDE 5 MG TAB PO SCH (08:30)
[2018-05-26] MEDS: HEPARIN SODIUM,PORCINE 5,000 UNIT/ML 1 ML VIAL SQ SCH ×2 (08:30→21:34)
[2018-05-26] MEDS: FLUTICASONE 50MCG/SPRAY NASAL 16GM EA NOSTRIL SCH ×2 (08:30→08:37)
--- NOTE | 2018-05-26 11:43 | P.PN ---
Subjective Progress Note Date: 05/25/18 Principal diagnosis: Mental status change/fall with metabolic encephalopathy versus acute TIA Is a 72-year-old right-handed white male who states he fell and hit his head on the floor causing her bump on his left forehead. He reports he had no loss of consciousness. He is unable to tell how he fell. He lives alone and he states his submarine element coordinator found him on the floor. She called EMS and he came to the hospital and wishes to leave. The patient is legally blind. He apparently walks with the assistance of a cane. When asked if that's the reason he fell he states no easy shadows and is able to maneuver at home. He denies any previous falls. Denied any new weakness or numbness. He has a history of old stroke. 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 He has a history of carotid stenosis. Objective - Vital Signs Vital signs: Vital Signs Temp 98.3 F 05/25/18 07:00 Pulse 88 05/25/18 07:00 Resp 16 05/25/18 07:00 BP 122/73 05/25/18 07:00 Pulse Ox 95 05/25/18 07:00 Intake & Output 05/24/18 05/25/18 05/25/18 18:59 06:59 18:59 Intake Total 160 250 Balance 160 250 Intake: Oral 160 250 Other: Voiding Method Urinal Toilet Toilet # Voids 3 3 1 # Bowel Movements 1 - Exam - Constitutional General appearance: Present: average body habitus, cooperative, no acute distress - EENT Eyes: Present: anicteric sclerae, EOMI, PERRLA, normal appearance ENT: Present: hearing grossly normal, normal oropharynx Ears: bilateral: normal - Neck Neck: Present: normal ROM. Absent: lymphadenopathy, rigidity, thyromegaly Carotids: negative: bruit present Thyroid: bilateral: normal size, negative: enlarged, nodule - Respiratory Respiratory: bilateral: CTA, negative: rales, rhonchi, wheezing - Cardiovascular Rhythm: regular Heart sounds: normal: S1, S2 Abnormal Heart Sounds: Absent: systolic murmur, diastolic murmur - Gastrointestinal General gastrointestinal: Present: normal bowel sounds, soft. Absent: distended , organomegaly, tenderness - Genitourinary Genitourinary Comment(s): deferred - Integumentary Integumentary: Present: normal turgor. Absent: jaundiced, rash, ulcer - Neurologic Neurologic: Present: CNII-XII intact. Absent: focal deficits - Musculoskeletal Musculoskeletal: Present: gait normal, strength equal bilaterally - Psychiatric Psychiatric: Present: A&O x's 3, appropriate affect, intact judgment & insight - Labs CBC & Chem 7: 05/24/18 07:41 05/24/18 07:41 Labs: Abnormal Lab Results - Last 24 Hours (Table) 05/24/18 05/24/18 Range/Units 07:41 09:00 LDL Cholesterol, Calc 113 H (0-99) mg/dL Urine Ketones 1+ H (Negative) U Benzodiazepines Scrn Detected H (NotDetected) Assessment and Plan Assessment: 1. Mental status change/fall; TIA versus robotic encephalopathy 2. History of CVA/TIA; old left parietal lobe infarct on computed tomography scan - Continue with current antiplatelet therapy along with statin - Monitor lipid profile and adjust statin dose has indicated 3. Bilateral carotid stenosis - Patient is seen and evaluated by vascular service; impression is bilateral common and internal carotid artery occlusion most likely chronic in view of computed tomography scan of the brain showing chronic small vessel disease - No vascular intervention is recommended at this point 4. Bilateral blindness; patient is legally blind and walks with a cane resulting in fall at home; case management/FLOOR INSPECTOR is consulted for placement 5. Hyperlipidemia; continue with current statin therapy; monitor lipid profile 6. Chronic back pain with spinal stenosis; stable 7. Nicotine dependence; counseling done for cessation of smoking 8. DVT prophylaxis CODE STATUS; full code Time with Patient: Greater than 30
[2018-05-26] MEDS: traZODone HCL 50 MG TAB PO SCH (21:34)
[2018-05-26] MEDS: MELATONIN 3 MG TABLET PO SCH (21:39)
[2018-05-27] MEDS: PANTOPRAZOLE SODIUM 40 MG GRANULE PKT PO SCH (08:24)
[2018-05-27] MEDS: NICOTINE 14MG/24HR PATCH TRANSDERM SCH (08:24)
[2018-05-27] MEDS: ATORVASTATIN 20 MG TAB PO SCH (08:24)
[2018-05-27] MEDS: ASPIRIN 81 MG PO SCH (08:27)
[2018-05-27] MEDS: HEPARIN SODIUM,PORCINE 5,000 UNIT/ML 1 ML VIAL SQ SCH ×2 (08:27→21:31)
[2018-05-27] MEDS: FLUTICASONE 50MCG/SPRAY NASAL 16GM EA NOSTRIL SCH (08:27)
[2018-05-27] MEDS: FINASTERIDE 5 MG TAB PO SCH (08:27)
[2018-05-27] MEDS: TAMSULOSIN 0.4 MG CAP.ER.24H PO SCH (08:27)
--- NOTE | 2018-05-27 12:36 | P.PN ---
Subjective Progress Note Date: 05/26/18 Principal diagnosis: Mental status change/fall with metabolic encephalopathy versus acute TIA Is a 72-year-old right-handed white male who states he fell and hit his head on the floor causing her bump on his left forehead. He reports he had no loss of consciousness. He is unable to tell how he fell. He lives alone and he states his general car supervisor yard found him on the floor. She called EMS and he came to the hospital and wishes to leave. The patient is legally blind. He apparently walks with the assistance of a cane. When asked if that's the reason he fell he states no easy shadows and is able to maneuver at home. He denies any previous falls. Denied any new weakness or numbness. He has a history of old stroke. 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 He has a history of carotid stenosis. 05/26/2018 Patient remains confused and agitated and demanding to be discharged home; telehealth case manager/TOWN JUSTICE working on patient placement; patient is stable to be discharged from medical standpoint Objective - Vital Signs Vital signs: Vital Signs Temp 98.3 F 05/26/18 05:46 Pulse 79 05/26/18 05:46 Resp 16 05/26/18 05:46 BP 132/80 05/26/18 05:46 Pulse Ox 95 05/26/18 05:46 Intake & Output 05/25/18 05/26/18 05/26/18 18:59 06:59 18:59 Intake Total 600 Balance 600 Weight 63.503 kg Intake: Oral 600 Other: Voiding Method Toilet Toilet # Voids 1 2 - Exam - Constitutional General appearance: Present: average body habitus, cooperative, no acute distress - EENT Eyes: Present: anicteric sclerae, EOMI, PERRLA, normal appearance ENT: Present: hearing grossly normal, normal oropharynx Ears: bilateral: normal - Neck Neck: Present: normal ROM. Absent: lymphadenopathy, rigidity, thyromegaly Carotids: negative: bruit present Thyroid: bilateral: normal size, negative: enlarged, nodule - Respiratory Respiratory: bilateral: CTA, negative: rales, rhonchi, wheezing - Cardiovascular Rhythm: regular Heart sounds: normal: S1, S2 Abnormal Heart Sounds: Absent: systolic murmur, diastolic murmur - Gastrointestinal General gastrointestinal: Present: normal bowel sounds, soft. Absent: distended , organomegaly, tenderness - Genitourinary Genitourinary Comment(s): deferred - Integumentary Integumentary: Present: normal turgor. Absent: jaundiced, rash, ulcer - Neurologic Neurologic: Present: CNII-XII intact. Absent: focal deficits - Musculoskeletal Musculoskeletal: Present: gait normal, strength equal bilaterally - Psychiatric Psychiatric: Present: A&O x's 3, appropriate affect, intact judgment & insight - Labs CBC & Chem 7: 05/24/18 07:41 05/24/18 07:41 Assessment and Plan Assessment: 1. Mental status change/fall; TIA versus robotic encephalopathy 2. History of CVA/TIA; old left parietal lobe infarct on computed tomography scan - Continue with current antiplatelet therapy along with statin - Monitor lipid profile and adjust statin dose has indicated 3. Bilateral carotid stenosis - Patient is seen and evaluated by vascular service; impression is bilateral common and internal carotid artery occlusion most likely chronic in view of computed tomography scan of the brain showing chronic small vessel disease - No vascular intervention is recommended at this point 4. Bilateral blindness; patient is legally blind and walks with a cane resulting in fall at home; case management/TOWN JUSTICE is consulted for placement 5. Hyperlipidemia; continue with current statin therapy; monitor lipid profile 6. Chronic back pain with spinal stenosis; stable 7. Nicotine dependence; counseling done for cessation of smoking 8. DVT prophylaxis CODE STATUS; full code
--- NOTE | 2018-05-27 12:39 | P.PN ---
Subjective Progress Note Date: 05/27/18 Principal diagnosis: Mental status change/fall with metabolic encephalopathy versus acute TIA Is a 72-year-old right-handed white male who states he fell and hit his head on the floor causing her bump on his left forehead. He reports he had no loss of consciousness. He is unable to tell how he fell. He lives alone and he states his machine washer found him on the floor. She called EMS and he came to the hospital and wishes to leave. The patient is legally blind. He apparently walks with the assistance of a cane. When asked if that's the reason he fell he states no easy shadows and is able to maneuver at home. He denies any previous falls. Denied any new weakness or numbness. He has a history of old stroke. 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 He has a history of carotid stenosis. 05/26/2018 Patient remains confused and agitated and demanding to be discharged home; employment evaluator/case manager/PIN CLEANER working on patient placement; patient is stable to be discharged from medical standpoint 05/27/2018 Patient seen and evaluated in the room at bedside; continues to demand to be allowed to leave the hospital; patient remains confused and not a good candidate to be discharged home to self-care due to debility and confusion; case management and PIN CLEANER working on discharge planning; Objective - Vital Signs Vital signs: Vital Signs Temp 98.6 F 05/27/18 07:24 Pulse 87 05/27/18 08:30 Resp 18 05/27/18 08:30 BP 132/76 05/27/18 07:24 Pulse Ox 97 05/27/18 07:24 Intake & Output 05/26/18 05/27/18 05/27/18 18:59 06:59 18:59 Intake Total 200 450 Balance 200 450 Weight 63.503 kg Intake: Oral 200 450 Other: Voiding Method Toilet Toilet Toilet # Voids 2 4 # Bowel Movements 1 - Labs CBC & Chem 7: 05/24/18 07:41 05/24/18 07:41
[2018-05-27] MEDS: HYDROcodone/APAP 5-325MG 1 EACH TAB PO PRN (19:08)
[2018-05-27] MEDS: traZODone HCL 50 MG TAB PO SCH (21:31)
[2018-05-27] MEDS: MELATONIN 3 MG TABLET PO SCH (21:31)
[2018-05-28] MEDS: ALPRAZolam 0.25 MG TAB PO PRN ×2 (03:07→22:16)
[2018-05-28] MEDS: NICOTINE 14MG/24HR PATCH TRANSDERM SCH (08:41)
[2018-05-28] MEDS: ATORVASTATIN 20 MG TAB PO SCH (08:41)
[2018-05-28] MEDS: FLUTICASONE 50MCG/SPRAY NASAL 16GM EA NOSTRIL SCH (08:41)
[2018-05-28] MEDS: PANTOPRAZOLE SODIUM 40 MG GRANULE PKT PO SCH (08:41)
[2018-05-28] MEDS: FINASTERIDE 5 MG TAB PO SCH (08:41)
[2018-05-28] MEDS: ASPIRIN 81 MG PO SCH (08:41)
[2018-05-28] MEDS: TAMSULOSIN 0.4 MG CAP.ER.24H PO SCH (08:41)
[2018-05-28] MEDS: HEPARIN SODIUM,PORCINE 5,000 UNIT/ML 1 ML VIAL SQ SCH ×2 (08:42→20:10)
--- NOTE | 2018-05-28 10:40 | P.DS ---
Providers Date of admission: 05/24/18 07:53 Attending physician: Edmund Duncan Consults: 05/23/18 07:14 Consult Physician Routine Consulting Provider: Janet Allen Consult Reason/Comments: confusion Do you want consulting provider notified?: Yes, Notify in am 05/24/18 11:44 Consult Physician Routine Consulting Provider: Elisha Witt Consult Reason/Comments: AMS Do you want consulting provider notified?: Yes 05/24/18 15:20 Consult Physician Routine Consulting Provider: Hiro Doan Consult Reason/Comments: carotid stenosis Do you want consulting provider notified?: Yes Primary care physician: [facility] Course: 72-year-old right-handed white male who states he fell and hit his head on the floor causing her bump on his left forehead. He reports he had no loss of consciousness. He is unable to tell how he fell. He lives alone and he states his emergency department found him on the floor. She called EMS and he came to the hospital and wishes to leave. The patient is legally blind. He apparently walks with the assistance of a cane. When asked if that's the reason he fell he states no easy shadows and is able to maneuver at home. He denies any previous falls. Denied any new weakness or numbness. He has a history of old stroke. 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 He has a history of carotid stenosis. 05/26/2018 Patient remains confused and agitated and demanding to be discharged home; caser/CHILD NURSE working on patient placement; patient is stable to be discharged from medical standpoint 05/27/2018 Patient seen and evaluated in the room at bedside; continues to demand to be allowed to leave the hospital; patient remains confused and not a good candidate to be discharged home to self-care due to debility and confusion; case management and CHILD NURSE working on discharge planning; 05/28/2018 Patient appears to have toxic encephalopathy from multiple narcotic medications asked him to avoid some of these medications Benadryl will be discontinued I'm unsure whether patient is to stop taking his medications. They're awaiting for the daughter to come up and come and pick her up to came up. Patient lives by himself doesn't want her daughter to live with him set up with him. Patient can make his own patient is declining to go to subacute rehab. Patient will be discharged today. Patient has bilateral carotid stenosis patient will benefit from statin which will discussion of which I'll provide. PHYSICAL EXAMINATION: GENERAL: The patient is alert and oriented x3, not in any acute distress. Well developed, well nourished. HEENT: Pupils are round and equally reacting to light. EOMI. No scleral icterus. No conjunctival pallor. Normocephalic, atraumatic. No pharyngeal erythema. No thyromegaly. is a laceration which was sutured CARDIOVASCULAR: S1 and S2 present. No murmurs, rubs, or gallops. PULMONARY: Chest is clear to auscultation, no wheezing or crackles. ABDOMEN: Soft, nontender, nondistended, normoactive bowel sounds. No palpable organomegaly. MUSCULOSKELETAL: No joint swelling or deformity. EXTREMITIES: No cyanosis, clubbing, or pedal edema. NEUROLOGICAL: Gross neurological examination did not reveal any focal deficits. SKIN: No rashes. Assessment and Plan Assessment: 1. Mental status change/fall; most probably toxic encephalopathy from above- mentioned medications 2. History of CVA/TIA; old left parietal lobe infarct on computed tomography scan - Continue with current antiplatelet therapy along with statin 3. Bilateral carotid stenosis 4. Bilateral blindness; patient is legally blind and walks with a cane resulting in fall at home; case management/CHILD NURSE is consulted for placement 5. Hyperlipidemia; continue with current statin therapy; monitor lipid profile 6. Chronic back pain with spinal stenosis; stable 7. Nicotine dependence; counseling done for cessation of smoking 8. DVT prophylaxis CODE STATUS; full code Plan - Discharge Summary Discharge Rx Participant: No New Discharge Prescriptions: New Tamsulosin [Flomax] 0.4 mg PO PC-BRKFST #30 cap.er.24h Continue Flunisolide 2 spray EA NOSTRIL DAILY MORPHINE ORAL SIDDHARTHA CONC 20mg/mL [Roxanol Oral Soln Conc 20MG/ML] 20 mg PO QID PRN PRN Reason: Pain HYDROcodone/APAP 10-325MG [[place] 10-325] 2 tab PO QID PRN PRN Reason: Pain traZODone HCL 50 mg PO HS Naloxone HCl [Narcan] 4 mg NASAL DIRECTED Ensure 1 can PO DAILY Melatonin 6 mg PO HS Aspirin EC [Ecotrin Low Dose] 162 mg PO DAILY Discontinued diphenhydrAMINE HCL [Benadryl] 25 mg PO BID Discharge Medication List Flunisolide 2 spray EA NOSTRIL DAILY 09/27/14 [History] HYDROcodone/APAP 10-325MG [[place] 10-325] 2 tab PO QID PRN 09/27/14 [History] MORPHINE ORAL SIDDHARTHA CONC 20mg/mL [Roxanol Oral Soln Conc 20MG/ML] 20 mg PO QID PRN 09/27/14 [History] Aspirin EC [Ecotrin Low Dose] 162 mg PO DAILY 05/22/18 [History] Ensure 1 can PO DAILY 05/22/18 [History] Melatonin 6 mg PO HS 05/22/18 [History] Naloxone HCl [Narcan] 4 mg NASAL DIRECTED 05/22/18 [History] traZODone HCL 50 mg PO HS 05/22/18 [History] Tamsulosin [Flomax] 0.4 mg PO PC-BRKFST #30 cap.er.24h 05/28/18 [Rx] Follow up Appointment(s)/Referral(s): [facility],Clinic [Primary Care Provider] - 3 Days Activity/Diet/Wound Care/Special Instructions: pending neurology clearance Discharge Disposition: HOME WITH HOME HEALTH SERVICES
[2018-05-28] MEDS: HYDROcodone/APAP 5-325MG 1 EACH TAB PO PRN ×2 (12:02→20:11)
[2018-05-28] MEDS ORDERED: HYDROcodone/APAP 5-325MG 1 EACH TAB PO STA (16:24)
[2018-05-28] MEDS: MELATONIN 3 MG TABLET PO SCH (20:10)
[2018-05-28] MEDS: traZODone HCL 50 MG TAB PO SCH (20:10)
[2018-05-28 21:25] VITALS: RESP 18
[2018-05-29 06:03] VITALS: BP 101/61; PULSE 105; TEMP 98.2
[2018-05-29] MEDS: NICOTINE 14MG/24HR PATCH TRANSDERM SCH (07:42)
[2018-05-29] MEDS: PANTOPRAZOLE SODIUM 40 MG GRANULE PKT PO SCH (07:43)
[2018-05-29] MEDS: FINASTERIDE 5 MG TAB PO SCH (07:43)
[2018-05-29] MEDS: HEPARIN SODIUM,PORCINE 5,000 UNIT/ML 1 ML VIAL SQ SCH (07:43)
[2018-05-29] MEDS: FLUTICASONE 50MCG/SPRAY NASAL 16GM EA NOSTRIL SCH (07:43)
[2018-05-29] MEDS: TAMSULOSIN 0.4 MG CAP.ER.24H PO SCH (07:43)
[2018-05-29] MEDS: ATORVASTATIN 20 MG TAB PO SCH (07:43)
[2018-05-29] MEDS: ASPIRIN 81 MG PO SCH (07:43)
--- NOTE | 2018-05-29 11:01 | P.DS ---
Providers Date of admission: 05/24/18 07:53 Attending physician: Edmund Duncan Consults: 05/23/18 07:14 Consult Physician Routine Consulting Provider: Janet Allen Consult Reason/Comments: confusion Do you want consulting provider notified?: Yes, Notify in am 05/24/18 11:44 Consult Physician Routine Consulting Provider: Elisha Witt Consult Reason/Comments: AMS Do you want consulting provider notified?: Yes 05/24/18 15:20 Consult Physician Routine Consulting Provider: Hiro Doan Consult Reason/Comments: carotid stenosis Do you want consulting provider notified?: Yes Primary care physician: [facility] Course: Because of the social work issues patient ended up staying in the hospital. Patient doesn't qualify for subacute rehab does have vision problems. Please refer to medical social consultant dictation for further details and patient will be discharged today. Patient wasn't examined today. No change in physical exam compared to yesterday. For rest of the other details please [facility] discharge summary from yesterday Plan - Discharge Summary Discharge Rx Participant: No New Discharge Prescriptions: New Tamsulosin [Flomax] 0.4 mg PO PC-BRKFST #30 cap.er.24h Atorvastatin Calcium [Lipitor] 20 mg PO HS #30 tab Continue Flunisolide 2 spray EA NOSTRIL DAILY MORPHINE ORAL SIDDHARTHA CONC 20mg/mL [Roxanol Oral Soln Conc 20MG/ML] 20 mg PO QID PRN PRN Reason: Pain HYDROcodone/APAP 10-325MG [[place] 10-325] 2 tab PO QID PRN PRN Reason: Pain traZODone HCL 50 mg PO HS Naloxone HCl [Narcan] 4 mg NASAL DIRECTED Ensure 1 can PO DAILY Melatonin 6 mg PO HS Aspirin EC [Ecotrin Low Dose] 162 mg PO DAILY Discontinued diphenhydrAMINE HCL [Benadryl] 25 mg PO BID Discharge Medication List Flunisolide 2 spray EA NOSTRIL DAILY 09/27/14 [History] HYDROcodone/APAP 10-325MG [[place] 10-325] 2 tab PO QID PRN 09/27/14 [History] MORPHINE ORAL SIDDHARTHA CONC 20mg/mL [Roxanol Oral Soln Conc 20MG/ML] 20 mg PO QID PRN 09/27/14 [History] Aspirin EC [Ecotrin Low Dose] 162 mg PO DAILY 05/22/18 [History] Ensure 1 can PO DAILY 05/22/18 [History] Melatonin 6 mg PO HS 05/22/18 [History] Naloxone HCl [Narcan] 4 mg NASAL DIRECTED 05/22/18 [History] traZODone HCL 50 mg PO HS 05/22/18 [History] Atorvastatin Calcium [Lipitor] 20 mg PO HS #30 tab 05/28/18 [Rx] Tamsulosin [Flomax] 0.4 mg PO PC-BRKFST #30 cap.er.24h 05/28/18 [Rx] Follow up Appointment(s)/Referral(s): [facility], [NON-STAFF] - 1 Week [facility],Clinic [Primary Care Provider] - 3 Days Patient Instructions/Handouts: Atorvastatin (By mouth), Tamsulosin (By mouth), Back Pain (GEN), Fall Prevention (DC), Encephalopathy (DC) Activity/Diet/Wound Care/Special Instructions: pending neurology clearance Discharge Disposition: HOME WITH HOME HEALTH SERVICES
== END 2018-05-29 13:00 | disposition home health service (06) | DRG 92 ==
LOC: EC 16:40 → 3OBS 21:50 → 5MS5E 05-23 18:01 → OBSVTOIN 05-24 07:53
PROVIDERS: ADMIT Hospitalist; ATTEND Hospitalist
DX: G92 Toxic encephalopathy (principal); S06.0X9A Concussion with loss of consciousness of unspecified duration, initial encounter; T40.605A Adverse effect of unspecified narcotics, initial encounter; T45.0X5A Adverse effect of antiallergic and antiemetic drugs, initial encounter; E78.5 Hyperlipidemia, unspecified; F17.200 Nicotine dependence, unspecified, uncomplicated; F32.9 Major depressive disorder, single episode, unspecified; F41.9 Anxiety disorder, unspecified; G89.29 Other chronic pain; H26.9 Unspecified cataract; H40.9 Unspecified glaucoma; H54.8 Legal blindness, as defined in USA; H91.90 Unspecified hearing loss, unspecified ear; I65.23 Occlusion and stenosis of bilateral carotid arteries; I73.9 Peripheral vascular disease, unspecified; M48.00 Spinal stenosis, site unspecified; S00.93XA Contusion of unspecified part of head, initial encounter; W19.XXXA Unspecified fall, initial encounter; Y92.009 Unspecified place in unspecified non-institutional (private) residence as the place of occurrence of the external cause; Z86.73 Personal history of transient ischemic attack (TIA), and cerebral infarction without residual deficits; R40.2142 Coma scale, eyes open, spontaneous, at arrival to emergency department; R40.2362 Coma scale, best motor response, obeys commands, at arrival to emergency department; R40.2252 Coma scale, best verbal response, oriented, at arrival to emergency department; Z60.2 Problems related to living alone; Z79.82 Long term (current) use of aspirin; Z79.891 Long term (current) use of opiate analgesic; Z79.899 Other long term (current) drug therapy; Z79.51 Long term (current) use of inhaled steroids
CPT/HCPCS: 36415; 70450; 71045; 72125; 80048; 80053; 80061; 80306; 81003; 84484; 85025; 85610; 85730; 86850; 86900; 86901; 93005; 93306; 93880; 95816; 96360; 96361; 99285

== ENCOUNTER 2018-08-07 14:34 | Emergency (ER) | payer MEDICARE ==
[2018-08-07 14:57] VITALS: BP 110/68; PULSE 98; RESP 18; TEMP 98.2
[2018-08-07] MEDS ORDERED: KETOROLAC 30 MG/ML 1 ML VIAL IM STA (15:53)
[2018-08-07] MEDS ORDERED: ORPHENADRINE 30 MG/ML 2 ML VIAL IM STA (15:53)
--- NOTE | 2018-08-07 15:54 | ED ---
Back Pain HPI - General Chief Complaint: Back Pain/Injury Stated Complaint: back pain Time Seen by Provider: 08/07/18 15:13 Source: patient Limitations: no limitations - History of Present Illness Initial Comments: 73-year-old male patient presents to emergency department today for complaints of increased low back pain. Patient states he does have chronic low back pain and does take [place] 10/325. States that he woke this morning with increased pain. Patient states it hurts worse with any movement especially changing positions. Patient denies any radiation of the pain down his legs. Denies any numbness or tingling to the lower extremities. Denies any saddle anesthesia or loss of bowel or bladder control. Patient is not having any abdominal pain. He denies any difficulty with urination or bowel movements. Denies any fevers or chills. Patient denies any recent rash, shortness breath, chest pain, nausea , vomiting, diarrhea, constipation, dizziness, weakness, hematuria, dysuria, urinary urgency, urinary frequency, headache, visual changes, or any other complaints. - Related Data Home Medications Medication Instructions Recorded Confirmed Flunisolide 2 spray EA NOSTRIL DAILY 09/27/14 05/22/18 HYDROcodone/APAP 10-325MG [[place] 2 tab PO QID PRN 09/27/14 05/22/18 10-325] MORPHINE ORAL SIDDHARTHA CONC 20mg/mL 20 mg PO QID PRN 09/27/14 05/22/18 [Roxanol Oral Soln Conc 20MG/ML] Aspirin EC [Ecotrin Low Dose] 162 mg PO DAILY 05/22/18 05/22/18 Ensure 1 can PO DAILY 05/22/18 05/22/18 Melatonin 6 mg PO HS 05/22/18 05/22/18 Naloxone HCl [Narcan] 4 mg NASAL DIRECTED 05/22/18 05/22/18 traZODone HCL 50 mg PO HS 05/22/18 05/22/18 Previous Rx's Medication Instructions Recorded Atorvastatin Calcium [Lipitor] 20 mg PO HS #30 tab 05/28/18 Tamsulosin [Flomax] 0.4 mg PO PC-BRKFST #30 cap.er.24h 05/28/18 Allergies Allergy/AdvReac Type Severity Reaction Status Date / Time No Known Allergies Allergy Verified 08/07/18 14:57 Review of Systems ROS Statement: Those systems with pertinent positive or pertinent negative responses have been documented in the HPI. ROS Other: All systems not noted in ROS Statement are negative. Past Medical History Past Medical History: CVA/TIA, Eye Disorder, Hearing Disorder / Deafness, Hyperlipidemia Additional Past Medical History / Comment(s): Pt states he has had a stroke and 2 TIAs, GRINDSTONE bilaterally, insomnia, chronic lower back pain, spinal stenosis, legally blind bilaterally, glaucoma bilaterally, caratid re-occlusion, bronchitis, allergic rhinitis; constipation. History of Any Multi-Drug Resistant Organisms: None Reported Additional Past Surgical History / Comment(s): Right hand finger amps, colonoscopy, bilateral carotid endartectomies, cataract removals Past Anesthesia/Blood Transfusion Reactions: No Reported Reaction Past Psychological History: Anxiety, Depression Smoking Status: Current every day smoker - Past Family History Mother History Unknown: Yes Father History Unknown: Yes Daughter(s) Family Medical History: Unable to Obtain General Exam Limitations: physical limitation (legally blind) General appearance: alert, in no apparent distress, other (This is a well- developed, well-nourished elderly male patient in no acute distress. Vital signs upon presentation are temperature 98.2F, pulse 98, respirations 18, blood pressure 110/68, pulse ox 100% on room air.) Eye exam: Present: PERRL, EOMI. Absent: normal appearance, scleral icterus, conjunctival injection, periorbital swelling ENT exam: Present: normal exam, normal oropharynx, mucous membranes moist Respiratory exam: Present: normal lung sounds bilaterally. Absent: respiratory distress, wheezes, rales, rhonchi, stridor Cardiovascular Exam: Present: regular rate, normal rhythm, normal heart sounds. Absent: systolic murmur, diastolic murmur, rubs, gallop, clicks GI/Abdominal exam: Present: soft, normal bowel sounds. Absent: distended, tenderness, guarding, rebound, rigid Extremities exam: Present: normal inspection, full ROM, normal capillary refill , other (Skin to the lower trauma is is pink, warm, and dry. Cap refill less than 3 seconds. Pedal and posttibial pulses are 2+ and equal bilaterally.). Absent: tenderness, pedal edema, joint swelling, calf tenderness Back exam: Present: normal inspection. Absent: vertebral tenderness Neurological exam: Present: alert, oriented X3, CN II-XII intact Psychiatric exam: Present: normal affect, normal mood Skin exam: Present: warm, dry, intact, normal color. Absent: rash Course Vital Signs 08/07/18 14:54 Temperature 98.2 F Pulse Rate 98 Respiratory 18 Rate Blood Pressure 110/68 O2 Sat by Pulse 100 Oximetry Medical Decision Making - Medical Decision Making 73-year-old male patient presents emergency department today for complaints of increased low back pain. Physical examination is unremarkable. Is no paraspinal or spinal tenderness. Neurovascular status is intact. Patient does report a history of back pain just increased this morning upon awakening. Patient will be given an injection of Toradol and Norflex. He does have [place] 10/325 at home, he is urged to continue taking this. Instructed to follow-up with his primary care physician for recheck in 1-2 days. He verbalizes understanding and agrees with this plan. Disposition Clinical Impression: Acute exacerbation of chronic low back pain Disposition: HOME SELF-CARE Condition: Good Instructions: Chronic Back Pain (ED) Additional Instructions: Apply warm moist heat to low back. Call your physician for an appointment as soon as possible. Return here immediately for any new, worsening, or concerning symptoms. Is patient prescribed a controlled substance at d/c from ED?: No Referrals: [facility],Clinic [Primary Care Provider] - 1-2 days Time of Disposition: 15:54
== END 2018-08-07 16:18 | disposition home or self-care (01) ==
LOC: EC 14:34
DX: M54.5 Low back pain (principal); G89.29 Other chronic pain; H40.9 Unspecified glaucoma; H26.9 Unspecified cataract; G47.00 Insomnia, unspecified; F32.9 Major depressive disorder, single episode, unspecified; F41.9 Anxiety disorder, unspecified; F17.200 Nicotine dependence, unspecified, uncomplicated; Z79.82 Long term (current) use of aspirin; Z79.891 Long term (current) use of opiate analgesic; Z79.899 Other long term (current) drug therapy; Z98.49 Cataract extraction status, unspecified eye
CPT/HCPCS: 99283; 96372 ×2; J2360; J1885

== ENCOUNTER 2019-05-18 12:43 | Emergency (ER) | payer MEDICARE ==
[2019-05-18 12:53] VITALS: TEMP 98.3
[2019-05-18] MEDS ORDERED: LIDOCAINE URO-JET JELLY 2% 5 ML KIT URETHRAL ONE (13:16)
--- NOTE | 2019-05-18 13:41 | ED ---
General Adult HPI <Dwight Medina - Last Filed: 05/18/19 14:26> - General Source: patient, EMS, RN notes reviewed Mode of arrival: EMS Limitations: no limitations <Jose Abernathy - Last Filed: 05/18/19 14:31> - General Chief complaint: Urogenital Stated complaint: Urine Retention Time Seen by Provider: 05/18/19 12:49 - History of Present Illness Initial comments: Christ is a 73-year-old male with a past medical history of CVA, insomnia, chronic back pain, legally blind, who presents for a chief complaint of abdominal pain and difficulty urinating. Patient states that he has had difficulty urinating over the past several years. States it seems to be worsening. States that he last urinated early this morning and feels that he has to urinate again. States his abdomen feels distended. States he is having normal bowel movements. Denies fevers or chills. Denies pain with urination.Patient has no other complaints at this time including shortness of breath, chest pain, nausea or vomiting, headache, or visual changes. (Jose Abernathy) - Related Data Home Medications Medication Instructions Recorded Confirmed HYDROcodone/APAP 10-325MG [[place] 2 tab PO QID PRN 09/27/14 05/22/18 10-325] Aspirin EC [Ecotrin Low Dose] 162 mg PO DAILY 05/22/18 05/22/18 Melatonin 6 mg PO HS 05/22/18 05/22/18 Naloxone HCl [Narcan] 4 mg NASAL DIRECTED 05/22/18 05/22/18 traZODone HCL 50 mg PO HS 05/22/18 05/22/18 Tamsulosin [Flomax] 0.4 mg PO DAILY 05/18/19 05/18/19 Previous Rx's Medication Instructions Recorded Atorvastatin Calcium [Lipitor] 20 mg PO HS #30 tab 05/28/18 Cephalexin [Keflex] 500 mg PO Q6HR 7 Days #12 cap 05/18/19 Allergies Allergy/AdvReac Type Severity Reaction Status Date / Time No Known Allergies Allergy Verified 05/18/19 14:27 Review of Systems ROS Other: All systems not noted in ROS Statement are negative. <Dwight Medina - Last Filed: 05/18/19 14:26> ROS Other: All systems not noted in ROS Statement are negative. <Jose Abernathy P - Last Filed: 05/18/19 14:31> ROS Statement: Those systems with pertinent positive or pertinent negative responses have been documented in the HPI. Past Medical History Past Medical History: CVA/TIA, Eye Disorder, Hearing Disorder / Deafness, Hyperlipidemia Additional Past Medical History / Comment(s): Pt states he has had a stroke and 2 TIAs, [place] bilaterally, insomnia, chronic lower back pain, spinal stenosis, legally blind bilaterally, glaucoma bilaterally, caratid re-occlusion, bronchitis, allergic rhinitis; constipation. History of Any Multi-Drug Resistant Organisms: None Reported Additional Past Surgical History / Comment(s): Right hand finger amps, colonoscopy, bilateral carotid endartectomies, cataract removals Past Anesthesia/Blood Transfusion Reactions: No Reported Reaction Past Psychological History: Anxiety, Depression Smoking Status: Current every day smoker Past Alcohol Use History: None Reported Past Drug Use History: None Reported - Past Family History Mother History Unknown: Yes Father History Unknown: Yes Daughter(s) Family Medical History: Unable to Obtain <Jose Abernathy P - Last Filed: 05/18/19 14:31> General Exam Limitations: no limitations General appearance: alert, in no apparent distress Head exam: Present: atraumatic, normocephalic, normal inspection Eye exam: Present: normal appearance, PERRL, EOMI. Absent: scleral icterus, conjunctival injection, periorbital swelling ENT exam: Present: normal exam, mucous membranes moist Neck exam: Present: normal inspection, full ROM. Absent: tenderness, meningismus, lymphadenopathy Respiratory exam: Present: normal lung sounds bilaterally. Absent: respiratory distress, wheezes, rales, rhonchi, stridor Cardiovascular Exam: Present: regular rate, normal rhythm, normal heart sounds. Absent: systolic murmur, diastolic murmur, rubs, gallop, clicks GI/Abdominal exam: Present: soft, tenderness (tenderness noted over suprapubic area, no generalized abdominal tenderness.), normal bowel sounds. Absent: distended, guarding, rebound, rigid Back exam: Absent: CVA tenderness (R), CVA tenderness (L) Neurological exam: Present: alert, oriented X3, CN II-XII intact Psychiatric exam: Present: normal affect, normal mood <Jose Abernathy P - Last Filed: 05/18/19 14:31> Course <Dwight Medina - Last Filed: 05/18/19 14:26> Vital Signs 05/18/19 12:45 Temperature 98.3 F Pulse Rate 94 Respiratory 19 Rate Blood Pressure 128/89 O2 Sat by Pulse 100 Oximetry - Reevaluation(s) Reevaluation #1: 05/18/19 14:27 PA supervision: I personally do a [id number] evaluation the patient he did present with complaints of inability to urinate among other issues. He was found have a urinary tract infection and urinary retention. He did have approximately 300 mL urine output. He is awake alert oriented 3 he does not want stay in hospital he wants to go home I believe this is reasonable at this time he'll be sent home on appropriate antibiotics U is requested to increase his oral fluids however. He does demonstrate some evidence of renal insufficie ncy he was made aware that. He will follow the [facility] clinic and return if any problems. (Dwight Medina) Medical Decision Making - Lab Data Result diagrams: 05/18/19 13:40 05/18/19 13:40 <Dwight Medina - Last Filed: 05/18/19 14:26> - Lab Data Result diagrams: 05/18/19 13:40 05/18/19 13:40 <Jose Abernathy - Last Filed: 05/18/19 14:31> - Medical Decision Making 73-year-old male presents to the emergency department for a chief complaint of suprapubic pain and urinary retention. Patient has had urinary retention for several years which has worsened recently. Patient states that he now has suprapubic pain. Denies fevers or chills. On examination patient does have suprapubic tenderness without generalized abdominal tenderness. CBC does show a white count of 10.8 which is likely secondary to urinary tract infection. Urinalysis does show 182 white blood cells with large leukocyte esterase. No back pain. Patient was given a gram of Rocephin. Patient also dehydrated with a creatinine of 1.41 and a BUN of 33, given a liter of fluids. Discussed admission, patient adamantly wants to go home. Patient will be discharged home however educated patient to drink plenty of fluids such as water. Discussed taking antibiotics as directed. Discussed returning here if he is having any worsening symptoms or fevers. Patient does agree with this management and is requesting discharge multiple times. (Jose Abernathy) - Lab Data Lab Results 05/18/19 05/18/19 05/18/19 Range/Units 13:32 13:32 13:40 WBC 10.8 H (3.8-10.6) k/uL RBC 5.10 (4.30-5.90) m/uL Hgb 16.2 (13.0-17.5) gm/dL Hct 48.0 (39.0-53.0) % MCV 94.1 (80.0-100.0) fL MCH 31.8 (25.0-35.0) pg MCHC 33.7 (31.0-37.0) g/dL RDW 13.5 (11.5-15.5) % Plt Count 241 (150-450) k/uL Neutrophils % 69 % Lymphocytes % 19 % Monocytes % 8 % Eosinophils % 2 % Basophils % 0 % Neutrophils # 7.4 (1.3-7.7) k/uL Lymphocytes # 2.1 (1.0-4.8) k/uL Monocytes # 0.8 (0-1.0) k/uL Eosinophils # 0.2 (0-0.7) k/uL Basophils # 0.0 (0-0.2) k/uL Sodium (137-145) mmol/L Potassium (3.5-5.1) mmol/L Chloride (98-107) mmol/L Carbon Dioxide (22-30) mmol/L Anion Gap mmol/L BUN (9-20) mg/dL Creatinine (0.66-1.25) mg/dL Est GFR (CKD-EPI)AfAm (>60 ml/min/1.73 sqM) Est GFR (CKD-EPI)NonAf (>60 ml/min/1.73 sqM) Glucose (74-99) mg/dL Calcium (8.4-10.2) mg/dL Total Bilirubin (0.2-1.3) mg/dL AST (17-59) U/L ALT (21-72) U/L Alkaline Phosphatase (38-126) U/L Total Protein (6.3-8.2) g/dL Albumin (3.5-5.0) g/dL Amylase (30-110) U/L Lipase (23-300) U/L Urine Color Yellow Urine Appearance Turbid (Clear) Urine pH 5.5 (5.0-8.0) Ur Specific [place] 1.019 (1.001-1.035) Urine Protein 1+ H (Negative) Urine Glucose (UA) Negative (Negative) Urine Ketones Negative (Negative) Urine Blood Small H (Negative) Urine Nitrite Positive (Negative) Urine Bilirubin Negative (Negative) Urine Urobilinogen <2.0 (<2.0) mg/dL Ur Leukocyte Esterase Large H (Negative) Urine RBC 19 H (0-5) /hpf Urine WBC >182 H (0-5) /hpf Urine WBC Clumps Many H (None) /hpf Urine Bacteria Many H (None) /hpf Urine Mucus Rare H (None) /hpf Stool Occult Blood Negative (Negative) 05/18/19 05/18/19 Range/Units 13:40 13:40 WBC (3.8-10.6) k/uL RBC (4.30-5.90) m/uL Hgb (13.0-17.5) gm/dL Hct (39.0-53.0) % MCV (80.0-100.0) fL MCH (25.0-35.0) pg MCHC (31.0-37.0) g/dL RDW (11.5-15.5) % Plt Count (150-450) k/uL Neutrophils % % Lymphocytes % % Monocytes % % Eosinophils % % Basophils % % Neutrophils # (1.3-7.7) k/uL Lymphocytes # (1.0-4.8) k/uL Monocytes # (0-1.0) k/uL Eosinophils # (0-0.7) k/uL Basophils # (0-0.2) k/uL Sodium 136 L (137-145) mmol/L Potassium 4.5 (3.5-5.1) mmol/L Chloride 104 (98-107) mmol/L Carbon Dioxide 20 L (22-30) mmol/L Anion Gap 12 mmol/L BUN 33 H (9-20) mg/dL Creatinine 1.41 H (0.66-1.25) mg/dL Est GFR (CKD-EPI)AfAm 57 (>60 ml/min/1.73 sqM) Est GFR (CKD-EPI)NonAf 49 (>60 ml/min/1.73 sqM) Glucose 100 H (74-99) mg/dL Calcium 9.3 (8.4-10.2) mg/dL Total Bilirubin 0.8 (0.2-1.3) mg/dL AST 29 (17-59) U/L ALT 33 (21-72) U/L Alkaline Phosphatase 65 (38-126) U/L Total Protein 7.2 (6.3-8.2) g/dL Albumin 4.4 (3.5-5.0) g/dL Amylase 69 (30-110) U/L Lipase 353 H (23-300) U/L Urine Color Urine Appearance (Clear) Urine pH (5.0-8.0) Ur Specific [place] (1.001-1.035) Urine Protein (Negative) Urine Glucose (UA) (Negative) Urine Ketones (Negative) Urine Blood (Negative) Urine Nitrite (Negative) Urine Bilirubin (Negative) Urine Urobilinogen (<2.0) mg/dL Ur Leukocyte Esterase (Negative) Urine RBC (0-5) /hpf Urine WBC (0-5) /hpf Urine WBC Clumps (None) /hpf Urine Bacteria (None) /hpf Urine Mucus (None) /hpf Stool Occult Blood (Negative) Disposition <Dwight Medina - Last Filed: 05/18/19 14:26> Is patient prescribed a controlled substance at d/c from ED?: No Time of Disposition: 14:30 <Jose Abernathy - Last Filed: 05/18/19 14:31> Clinical Impression: Urinary tract infection Disposition: HOME SELF-CARE Condition: Good Instructions (If sedation given, give patient instructions): Urinary Tract Infection in Men (ED) Additional Instructions: Please take antibiotic as directed. Please follow-up with primary care in 1-2 days. Please return here to the emergency department if you have any worsening symptoms. Prescriptions: Cephalexin [Keflex] 500 mg PO Q6HR 7 Days #12 cap Referrals: [facility],Clinic [Primary Care Provider] - 1-2 days
[2019-05-18 13:52] LABS: Basophils % (A) 0 %; Eosinophils # (A) 0.2 k/uL (0-0.7); Eosinophils % (A) 2 %; HGB 16.2 gm/dL (13.0-17.5); Lymphocytes # (A) 2.1 k/uL (1.0-4.8); Lymphocytes % (A) 19 %; MCH 31.8 pg (25.0-35.0); MCHC 33.7 g/dL (31.0-37.0); MCV 94.1 fL (80.0-100.0); Mean Platelet Volume 7.1; Monocytes # (A) 0.8 k/uL (0-1.0); Monocytes % (A) 8 %; Neutrophils # (A) 7.4 k/uL (1.3-7.7); Neutrophils % (A) 69 %; Platelet Count 241 k/uL (150-450); RDW 13.5 % (11.5-15.5); WBC 10.8 k/uL (3.8-10.6)
[2019-05-18 13:58] LABS: Appearance,Urine Turbid (Clear); Bacteria,Urine Many /hpf; Bilirubin,Urine Negative (Negative); Blood,Urine Small (Negative); Color,Urine Yellow; Glucose,Urine (UA) Negative (Negative); Ketones,Urine Negative (Negative); Leukocyte Esterase,Urine Large (Negative); Mucus,Urine Rare /hpf; Nitrite,Urine Positive (Negative); PH, Urine 5.5 (5.0-8.0); Protein,Urine 1+ (Negative); RBC,Urine 19 /hpf (0-5); Specific Gravity,Urine 1.019 (1.001-1.035); Urobilinogen,Urine <2.0 mg/dL (<2.0); WBC,Urine >182 /hpf (0-5)
[2019-05-18 14:06] LABS: Albumin 4.4 g/dL (3.5-5.0); Amylase 69 U/L (30-110); Calcium 9.3 mg/dL (8.4-10.2); Lipase 353 U/L (23-300); Total Bilirubin 0.8 mg/dL (0.2-1.3); Total Protein 7.2 g/dL (6.3-8.2)
[2019-05-18] MEDS ORDERED: SODIUM CHLORIDE 0.9% 1,000 ML IV STA (14:06)
[2019-05-18 14:07] LABS: Potassium 4.5 mmol/L (3.5-5.1)
[2019-05-18] MEDS ORDERED: cefTRIAXone IN SWFI 1,000 MG/10 ML SYRINGE IVP STA (14:07)
[2019-05-18] MEDS ORDERED: MORPHINE SULFATE 4 MG/ML SYRINGE IVP STA (14:18)
[2019-05-18 15:04] VITALS: BP 107/65; PULSE 98; RESP 18
[2019-05-18] MEDS ORDERED: CEPHALEXIN 500MG STARTER PACK 4 CAP BTL PO STA (15:06)
== END 2019-05-18 15:45 | disposition home or self-care (01) ==
LOC: EC 12:43
DX: N39.0 Urinary tract infection, site not specified (principal); F41.9 Anxiety disorder, unspecified; F32.9 Major depressive disorder, single episode, unspecified; F17.200 Nicotine dependence, unspecified, uncomplicated; Z86.73 Personal history of transient ischemic attack (TIA), and cerebral infarction without residual deficits; Z79.82 Long term (current) use of aspirin; Z79.899 Other long term (current) drug therapy
CPT/HCPCS: 51798; 36415; 80053; 82150; 83690; 85025; 82272; 81001; 87086; 87077; 87186; 99284; 51702; 96374; 96375; 96361; J2270; J0696

== ENCOUNTER 2019-09-09 04:14 | Inpatient (IN) | payer MEDICARE ==
[2019-09-09 04:55] LABS: Glucose,Whole Blood 80 mg/dL (75-99)
[2019-09-09 05:22] LABS: Basophils % (A) 0 %; Eosinophils # (A) 0.1 k/uL (0-0.7); Eosinophils % (A) 1 %; HCT 42.7 % (39.0-53.0); HGB 14.8 gm/dL (13.0-17.5); Lymphocytes # (A) 1.3 k/uL (1.0-4.8); Lymphocytes % (A) 15 %; MCH 33.4 pg (25.0-35.0); MCHC 34.6 g/dL (31.0-37.0); MCV 96.4 fL (80.0-100.0); Mean Platelet Volume 6.4; Monocytes # (A) 0.3 k/uL (0-1.0); Monocytes % (A) 4 %; Neutrophils # (A) 6.8 k/uL (1.3-7.7); Neutrophils % (A) 79 %; Platelet Count 200 k/uL (150-450); RBC 4.43 m/uL (4.30-5.90); RDW 12.6 % (11.5-15.5); WBC 8.6 k/uL (3.8-10.6)
--- NOTE | 2019-09-09 05:23 | XR ---
EXAMINATION TYPE: XR chest 2V DATE OF EXAM: 09/09/2019 COMPARISON: 05/22/2018 HISTORY: Fever TECHNIQUE: Frontal and lateral views of the chest are obtained. FINDINGS: Heart is normal. There is slight coarsening of interstitial markings. There is no heart fa ilure. There is no pleural effusion. There is some compression deformity of thoracic vertebra. IMPRESSION: Mild pulmonary fibrosis. Thoracic mild compression fractures. Heart and lungs unchanged.
[2019-09-09 05:28] LABS: INR 0.9 (<1.2); Partial Thromboplastin Time 25.6 sec (22.0-30.0); Prothrombin Time 10.2 sec (9.0-12.0)
[2019-09-09 05:35] LABS: Albumin 3.9 g/dL (3.5-5.0); Calcium 9.8 mg/dL (8.4-10.2); Potassium 4.1 mmol/L (3.5-5.1); Total Bilirubin 0.7 mg/dL (0.2-1.3); Total Protein 6.6 g/dL (6.3-8.2)
[2019-09-09 05:54] LABS: Creatine Kinase MB 38.6 ng/mL (0.0-2.4); Troponin I <0.012 ng/mL (0.000-0.034)
[2019-09-09 06:54] LABS: Appearance,Urine Clear (Clear); Bilirubin,Urine Negative (Negative); Blood,Urine Small (Negative); Color,Urine Yellow; Glucose,Urine (UA) Negative (Negative); Ketones,Urine 1+ (Negative); Leukocyte Esterase,Urine Negative (Negative); Nitrite,Urine Negative (Negative); PH, Urine 5.5 (5.0-8.0); Protein,Urine Trace (Negative); RBC,Urine 1 /hpf (0-5); Specific Gravity,Urine 1.018 (1.001-1.035); Urobilinogen,Urine <2.0 mg/dL (<2.0); WBC,Urine 1 /hpf (0-5)
[2019-09-09 07:06] LABS: Cocaine Screen,Urine Not Detected (NotDetected); Phencyclidine Screen,Urine Not Detected (NotDetected); Urn Cannabinoid Scrn Not Detected (NotDetected)
[2019-09-09 07:07] LABS: Amphetamine Screen,Urine Not Detected (NotDetected); Barbiturate Screen,Urine Not Detected (NotDetected); Benzodiazepines Screen,Urine Not Detected (NotDetected); Methadone Screen, Urine Not Detected (NotDetected); Opiate Screen,Urine Detected (NotDetected); Oxycodone Screen, Urine Detected (NotDetected); Tricyclic Antidepressant,Urine Not Detected (NotDetected)
[2019-09-09] MEDS ORDERED: NALOXONE 0.4 MG/ML 1 ML VIAL IV PRN (07:14)
[2019-09-09] MEDS ORDERED: ACETAMINOPHEN TAB 325 MG TAB PO PRN (07:14)
--- NOTE | 2019-09-09 07:14 | ED ---
General Adult HPI - General Chief complaint: Altered Mental Status Stated complaint: Mental Health Time Seen by Provider: 09/09/19 04:39 Source: patient, EMS Mode of arrival: EMS Limitations: no limitations - History of Present Illness Initial comments: This patient is a 74-year-old man brought to be evaluated for generalized weakness and Fatigue. The patient had reportedly fallen on the floor of his home and then had not been able to get up and had been lying there for unknown area of time. Patient denies injury. -: unknown Consistency: constant Improves with: none Worsens with: none Associated Symptoms: weakness Treatments Prior to Arrival: none - Related Data Home Medications Medication Instructions Recorded Confirmed HYDROcodone/APAP 10-325MG [[place] 2 tab PO QID PRN 09/27/14 05/18/19 10-325] Aspirin EC [Ecotrin Low Dose] 162 mg PO DAILY 05/22/18 05/18/19 Melatonin 6 mg PO HS 05/22/18 05/18/19 Naloxone HCl [Narcan] 4 mg NASAL DIRECTED 05/22/18 05/18/19 traZODone HCL 50 mg PO HS 05/22/18 05/18/19 Tamsulosin [Flomax] 0.4 mg PO DAILY 05/18/19 05/18/19 Previous Rx's Medication Instructions Recorded Atorvastatin Calcium [Lipitor] 20 mg PO HS #30 tab 05/28/18 Cephalexin [Keflex] 500 mg PO Q6HR 7 Days #12 cap 05/18/19 Allergies Allergy/AdvReac Type Severity Reaction Status Date / Time No Known Allergies Allergy Verified 05/18/19 14:27 Review of Systems ROS Statement: Those systems with pertinent positive or pertinent negative responses have been documented in the HPI. ROS Other: All systems not noted in ROS Statement are negative. Constitutional: Reports: weakness. Denies: fever, chills Eyes: Reports: vision change (History of being legally blind) ENT: Denies: congestion Respiratory: Denies: cough, dyspnea Cardiovascular: Denies: chest pain, palpitations, syncope Gastrointestinal: Reports: abdominal pain. Denies: nausea, vomiting Genitourinary: Denies: hematuria Musculoskeletal: Denies: back pain Skin: Denies: rash Neurological: Denies: headache, weakness, numbness Past Medical History Past Medical History: CVA/TIA, Eye Disorder, Hearing Disorder / Deafness, Hyperlipidemia Additional Past Medical History / Comment(s): Pt states he has had a stroke and 2 TIAs, [place] bilaterally, insomnia, chronic lower back pain, spinal stenosis, legally blind bilaterally, glaucoma bilaterally, caratid re-occlusion, bronchitis, allergic rhinitis; constipation. History of Any Multi-Drug Resistant Organisms: None Reported Additional Past Surgical History / Comment(s): Right hand finger amps, colonoscopy, bilateral carotid endartectomies, cataract removals Past Anesthesia/Blood Transfusion Reactions: No Reported Reaction Past Psychological History: Anxiety, Depression Smoking Status: Current every day smoker Past Alcohol Use History: None Reported Past Drug Use History: None Reported - Past Family History Mother History Unknown: Yes Father History Unknown: Yes Daughter(s) Family Medical History: Unable to Obtain General Exam Limitations: no limitations General appearance: alert, in no apparent distress Head exam: Present: atraumatic, normocephalic Eye exam: Present: normal appearance. Absent: scleral icterus, conjunctival injection ENT exam: Present: normal oropharynx Neck exam: Present: normal inspection, full ROM Respiratory exam: Present: normal lung sounds bilaterally. Absent: respiratory distress, wheezes, rales, rhonchi, stridor Cardiovascular Exam: Present: regular rate, normal rhythm, normal heart sounds. Absent: systolic murmur, diastolic murmur, rubs, gallop GI/Abdominal exam: Present: soft. Absent: distended, tenderness, guarding, rebound, rigid, mass Extremities exam: Present: normal inspection, normal capillary refill. Absent: pedal edema, calf tenderness Back exam: Present: normal inspection. Absent: CVA tenderness (R), CVA tenderness (L) Neurological exam: Present: alert, oriented X3. Absent: CN II-XII intact, motor sensory deficit Skin exam: Present: warm, dry, intact, normal color. Absent: rash Course Vital Signs 09/09/19 09/09/19 04:38 10:41 Temperature 97.6 F 98.0 F Pulse Rate 98 76 Respiratory 18 16 Rate Blood Pressure 115/81 136/76 O2 Sat by Pulse 100 99 Oximetry Medical Decision Making - Medical Decision Making Patient 74-year-old man with significant disability who does not have a safe discharge location. Patient be admitted to have placement considered area - Lab Data Result diagrams: 09/09/19 04:45 09/09/19 04:45 Lab Results 09/09/19 09/09/19 09/09/19 Range/Units 04:45 04:45 04:45 WBC 8.6 (3.8-10.6) k/uL RBC 4.43 (4.30-5.90) m/uL Hgb 14.8 (13.0-17.5) gm/dL Hct 42.7 (39.0-53.0) % MCV 96.4 (80.0-100.0) fL MCH 33.4 (25.0-35.0) pg MCHC 34.6 (31.0-37.0) g/dL RDW 12.6 (11.5-15.5) % Plt Count 200 (150-450) k/uL Neutrophils % 79 % Lymphocytes % 15 % Monocytes % 4 % Eosinophils % 1 % Basophils % 0 % Neutrophils # 6.8 (1.3-7.7) k/uL Lymphocytes # 1.3 (1.0-4.8) k/uL Monocytes # 0.3 (0-1.0) k/uL Eosinophils # 0.1 (0-0.7) k/uL Basophils # 0.0 (0-0.2) k/uL PT (9.0-12.0) sec INR (<1.2) APTT (22.0-30.0) sec Sodium 139 (137-145) mmol/L Potassium 4.1 (3.5-5.1) mmol/L Chloride 101 (98-107) mmol/L Carbon Dioxide 30 (22-30) mmol/L Anion Gap 8 mmol/L BUN 29 H (9-20) mg/dL Creatinine 1.00 (0.66-1.25) mg/dL Est GFR (CKD-EPI)AfAm 85 (>60 ml/min/1.73 sqM) Est GFR (CKD-EPI)NonAf 73 (>60 ml/min/1.73 sqM) Glucose 84 (74-99) mg/dL POC Glucose (mg/dL) (75-99) mg/dL POC Glu [employer] ID Plasma Lactic Acid [place]uneet (0.7-2.0) mmol/L Calcium 9.8 (8.4-10.2) mg/dL Total Bilirubin 0.7 (0.2-1.3) mg/dL AST 164 H (17-59) U/L ALT 68 (21-72) U/L Alkaline Phosphatase 80 (38-126) U/L CK-MB (CK-2) 38.6 H (0.0-2.4) ng/mL Troponin I <0.012 (0.000-0.034) ng/mL Total Protein 6.6 (6.3-8.2) g/dL Albumin 3.9 (3.5-5.0) g/dL Urine Color Urine Appearance (Clear) Urine pH (5.0-8.0) Ur Specific [place] (1.001-1.035) Urine Protein (Negative) Urine Glucose (UA) (Negative) Urine Ketones (Negative) Urine Blood (Negative) Urine Nitrite (Negative) Urine Bilirubin (Negative) Urine Urobilinogen (<2.0) mg/dL Ur Leukocyte Esterase (Negative) Urine RBC (0-5) /hpf Urine WBC (0-5) /hpf Urine Opiates Screen (NotDetected) Ur Oxycodone Screen (NotDetected) Urine Methadone Screen (NotDetected) Ur Propoxyphene Screen (NotDetected) Ur Barbiturates Screen (NotDetected) U Tricyclic Antidepress (NotDetected) Ur Phencyclidine Scrn (NotDetected) Ur Amphetamines Screen (NotDetected) U Methamphetamines Scrn (NotDetected) U Benzodiazepines Scrn (NotDetected) Urine Cocaine Screen (NotDetected) U Marijuana (THC) Screen (NotDetected) 09/09/19 09/09/19 09/09/19 Range/Units 04:45 04:45 04:46 WBC (3.8-10.6) k/uL RBC (4.30-5.90) m/uL Hgb (13.0-17.5) gm/dL Hct (39.0-53.0) % MCV (80.0-100.0) fL MCH (25.0-35.0) pg MCHC (31.0-37.0) g/dL RDW (11.5-15.5) % Plt Count (150-450) k/uL Neutrophils % % Lymphocytes % % Monocytes % % Eosinophils % % Basophils % % Neutrophils # (1.3-7.7) k/uL Lymphocytes # (1.0-4.8) k/uL Monocytes # (0-1.0) k/uL Eosinophils # (0-0.7) k/uL Basophils # (0-0.2) k/uL PT 10.2 (9.0-12.0) sec INR 0.9 (<1.2) APTT 25.6 (22.0-30.0) sec Sodium (137-145) mmol/L Potassium (3.5-5.1) mmol/L Chloride (98-107) mmol/L Carbon Dioxide (22-30) mmol/L Anion Gap mmol/L BUN (9-20) mg/dL Creatinine (0.66-1.25) mg/dL Est GFR (CKD-EPI)AfAm (>60 ml/min/1.73 sqM) Est GFR (CKD-EPI)NonAf (>60 ml/min/1.73 sqM) Glucose (74-99) mg/dL POC Glucose (mg/dL) 80 (75-99) mg/dL POC Glu [employer] Architect ID Shant, Con[place]is Plasma Lactic Acid Puneet 1.4 (0.7-2.0) mmol/L Calcium (8.4-10.2) mg/dL Total Bilirubin (0.2-1.3) mg/dL AST (17-59) U/L ALT (21-72) U/L Alkaline Phosphatase (38-126) U/L CK-MB (CK-2) (0.0-2.4) ng/mL Troponin I (0.000-0.034) ng/mL Total Protein (6.3-8.2) g/dL Albumin (3.5-5.0) g/dL Urine Color Urine Appearance (Clear) Urine pH (5.0-8.0) Ur Specific [place] (1.001-1.035) Urine Protein (Negative) Urine Glucose (UA) (Negative) Urine Ketones (Negative) Urine Blood (Negative) Urine Nitrite (Negative) Urine Bilirubin (Negative) Urine Urobilinogen (<2.0) mg/dL Ur Leukocyte Esterase (Negative) Urine RBC (0-5) /hpf Urine WBC (0-5) /hpf Urine Opiates Screen (NotDetected) Ur Oxycodone Screen (NotDetected) Urine Methadone Screen (NotDetected) Ur Propoxyphene Screen (NotDetected) Ur Barbiturates Screen (NotDetected) U Tricyclic Antidepress (NotDetected) Ur Phencyclidine Scrn (NotDetected) Ur Amphetamines Screen (NotDetected) U Methamphetamines Scrn (NotDetected) U Benzodiazepines Scrn (NotDetected) Urine Cocaine Screen (NotDetected) U Marijuana (THC) Screen (NotDetected) 09/09/19 Range/Units 06:14 WBC (3.8-10.6) k/uL RBC (4.30-5.90) m/uL Hgb (13.0-17.5) gm/dL Hct (39.0-53.0) % MCV (80.0-100.0) fL MCH (25.0-35.0) pg MCHC (31.0-37.0) g/dL RDW (11.5-15.5) % Plt Count (150-450) k/uL Neutrophils % % Lymphocytes % % Monocytes % % Eosinophils % % Basophils % % Neutrophils # (1.3-7.7) k/uL Lymphocytes # (1.0-4.8) k/uL Monocytes # (0-1.0) k/uL Eosinophils # (0-0.7) k/uL Basophils # (0-0.2) k/uL PT (9.0-12.0) sec INR (<1.2) APTT (22.0-30.0) sec Sodium (137-145) mmol/L Potassium (3.5-5.1) mmol/L Chloride (98-107) mmol/L Carbon Dioxide (22-30) mmol/L Anion Gap mmol/L BUN (9-20) mg/dL Creatinine (0.66-1.25) mg/dL Est GFR (CKD-EPI)AfAm (>60 ml/min/1.73 sqM) Est GFR (CKD-EPI)NonAf (>60 ml/min/1.73 sqM) Glucose (74-99) mg/dL POC Glucose (mg/dL) (75-99) mg/dL POC Glu [employer] Architect ID Plasma Lactic Acid Puneet (0.7-2.0) mmol/L Calcium (8.4-10.2) mg/dL Total Bilirubin (0.2-1.3) mg/dL AST (17-59) U/L ALT (21-72) U/L Alkaline Phosphatase (38-126) U/L CK-MB (CK-2) (0.0-2.4) ng/mL Troponin I (0.000-0.034) ng/mL Total Protein (6.3-8.2) g/dL Albumin (3.5-5.0) g/dL Urine Color Yellow Urine Appearance Clear (Clear) Urine pH 5.5 (5.0-8.0) Ur Specific [place] 1.018 (1.001-1.035) Urine Protein Trace H (Negative) Urine Glucose (UA) Negative (Negative) Urine Ketones 1+ H (Negative) Urine Blood Small H (Negative) Urine Nitrite Negative (Negative) Urine Bilirubin Negative (Negative) Urine Urobilinogen <2.0 (<2.0) mg/dL Ur Leukocyte Esterase Negative (Negative) Urine RBC 1 (0-5) /hpf Urine WBC 1 (0-5) /hpf Urine Opiates Screen Detected H (NotDetected) Ur Oxycodone Screen Detected H (NotDetected) Urine Methadone Screen Not Detected (NotDetected) Ur Propoxyphene Screen Not Detected (NotDetected) Ur Barbiturates Screen Not Detected (NotDetected) U Tricyclic Antidepress Not Detected (NotDetected) Ur Phencyclidine Scrn Not Detected (NotDetected) Ur Amphetamines Screen Not Detected (NotDetected) U Methamphetamines Scrn Not Detected (NotDetected) U Benzodiazepines Scrn Not Detected (NotDetected) Urine Cocaine Screen Not Detected (NotDetected) U Marijuana (THC) Screen Not Detected (NotDetected) Disposition Clinical Impression: Confusion, Fall at home Disposition: ADMITTED IP TO THIS HOSP Condition: Poor
[2019-09-09] MEDS: SODIUM CHLORIDE 0.9% 1,000 ML IV SCH ×2 (10:56→21:03)
[2019-09-09 12:19] VITALS: BMI 24.7
--- NOTE | 2019-09-09 17:52 | HP ---
HISTORY AND PHYSICAL DATE OF SERVICE: 09/09/2019. CHIEF COMPLAINT: Change in mental status. HISTORY OF PRESENT ILLNESS: This 74-year-old woman with a past medical history of multiple medical problems including CVA, TIA, history of hyperlipidemia, history of hearing disorder, history of anxiety, depression, being followed by Dr. Quick in the [facility] in the outpatient setting is legally blind. The patient apparently living in a group home apartment with help from a caregiver. Apparently, the patient sought recluse and the section housekeeper brings in the groceries and the patient was apparently yelling in the apartment and the risk management intern were called and because of increasing confusion and other medical issues, patient was taken to [facility] and admitted for evaluation and treatment. The patient has diffuse rash. Currently the patient is confused, somewhat agitated, unable to give a coherent history from the patient. Most of the history taken from my discussion with staff and review of chart at this time. The patient had an old left parietal infarct in the CT scan and bilateral carotid stenosis also noted. There is no history of trauma. PAST MEDICAL HISTORY: History of CVA, TIA, hyperlipidemia, history of anxiety, depression. MEDICATION: Home medications are: 1. Trazodone 50 mg q.h.s. 2. Flomax 0.4 daily. 3. Narcan 4 mg p.r.n. 4. Melatonin 6 mg q.h.s. 5. Hydrocodone 10 mg 2 tabs q.i.d. p.r.n. 6. Keflex 500 mg q.6h p.r.n. 7. Lipitor 20 mg q.h.s. 8. Ecotrin 160 mg p.o. daily. ALLERGIES: None. FAMILY HISTORY: Family history, social history and review of systems could not be taken from the patient because the patient has change in mental status. PHYSICAL EXAM: Patient is confused, disoriented, slightly combative. Pulse 97, blood pressure 112/59, respiration 30, temperature 98.4, pulse ox 98% on room air. HEENT is conjunctivae normal. Oral mucosa moist neck is no jugular venous distention. No carotid bruit. No lymph node enlargement. Cardiovascular system: S1, S2 muffled. No S3, no S4. RESPIRATORY: Breath sounds diminished in the bases. A few scattered rhonchi and crackles. ABDOMEN: Soft, nontender. No mass palpable. Legs: No edema. No swelling. NERVOUS SYSTEM: Higher functions as mentioned earlier. Otherwise, moves all 4 limbs. No focal deficits. Patient unable to cooperate with full exam. SKIN: Diffuse maculopapular rash present. JOINTS: No active deforming arthropathy. LYMPHATICS: No lymph nodes palpable in the neck, axillae or groin. LAB: Investigation at this time shows WBC 8.2, hemoglobin 14.8. Otherwise, BUN is 29, creatinine is normal. AST is 164. ASSESSMENT: 1. Change in mental status, acute on chronic metabolic encephalopathy, possible acute transient ischemic attack. 2. Possible psychosis, rule out psychosis. 3. 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 4. Bilateral carotid stenosis. 5. Bilateral blindness. 6. Hyperlipidemia. 7. Chronic degenerative joint disease. 8. History of nicotine dependence. 9. Deep vein thrombosis prophylaxis. 10.Increased AST. 11.History of spinal stenosis. 12.History of legal blindness. 13.Anxiety, depression. 14.Gait dysfunction. 15.FULL CODE. RECOMMENDATIONS AND DISCUSSION: In this 74-year-old gentleman who presented with multiple medical issues, at this time, I recommend to continue current medications, continue symptomatic treatment. Otherwise, I would recommend Haldol p.r.n. Psychiatry and Neurology consultation. Otherwise, resume the home medications. Prognosis guarded. PT/OT evaluation, possible ECF rehab. Discussed with staff. Further recommendations to follow. MMMARIOL / ALISONN: [id number] /
[2019-09-09] MEDS: HALOPERIDOL LACTATE 5 MG/ML 1 ML VIAL IM PRN (18:17)
[2019-09-09] MEDS: HEPARIN SODIUM,PORCINE 5,000 UNIT/ML 1 ML VIAL SQ SCH (22:10)
[2019-09-09] MEDS: CLOTRIMAZOLE 1% CREAM 15 GM TUBE TOPICAL SCH (22:42)
[2019-09-09] MEDS: MELATONIN 3 MG TABLET PO SCH ×2 (22:43→23:01)
[2019-09-09] MEDS: traZODone HCL 50 MG TAB PO SCH ×2 (22:43→23:02)
[2019-09-09] MEDS: HYDROcodone/APAP 10-325MG 1 EACH TAB PO PRN (23:03)
[2019-09-10] MEDS: CLOTRIMAZOLE 1% CREAM 15 GM TUBE TOPICAL SCH ×2 (07:20→20:49)
[2019-09-10] MEDS: HEPARIN SODIUM,PORCINE 5,000 UNIT/ML 1 ML VIAL SQ SCH ×2 (08:37→20:26)
[2019-09-10] MEDS: TAMSULOSIN 0.4 MG CAP.ER.24H PO SCH (08:37)
[2019-09-10] MEDS: ASPIRIN 81 MG PO SCH (08:37)
[2019-09-10] MEDS: SODIUM CHLORIDE 0.9% 1,000 ML IV SCH ×2 (08:37→20:26)
[2019-09-10 11:15] LABS: Basophils % (A) 0 %; Eosinophils # (A) 0.1 k/uL (0-0.7); Eosinophils % (A) 2 %; HCT 43.4 % (39.0-53.0); Lymphocytes # (A) 1.1 k/uL (1.0-4.8); Lymphocytes % (A) 21 %; MCH 32.1 pg (25.0-35.0); MCHC 32.3 g/dL (31.0-37.0); MCV 99.2 fL (80.0-100.0); Mean Platelet Volume 7.7; Monocytes # (A) 0.3 k/uL (0-1.0); Monocytes % (A) 5 %; Neutrophils # (A) 3.7 k/uL (1.3-7.7); Neutrophils % (A) 71 %; Platelet Count 169 k/uL (150-450); RBC 4.38 m/uL (4.30-5.90); RDW 12.6 % (11.5-15.5); WBC 5.2 k/uL (3.8-10.6)
[2019-09-10 11:29] LABS: Calcium 9.6 mg/dL (8.4-10.2); Potassium 3.8 mmol/L (3.5-5.1)
--- NOTE | 2019-09-10 15:31 | CT ---
EXAMINATION TYPE: CT brain wo con DATE OF EXAM: 09/10/2019 COMPARISON: 05/22/2018 HISTORY: 74-year-old male with confusion, altered mental status. TECHNIQUE: Examination was done in axial plane without intravenous contrast. Coronal and sagittal r econstructions performed. CT DLP: 1192 mGycm Automated exposure control for dose reduction was used. FINDINGS: There is no evidence of acute intracranial hemorrhage, acute ischemic changes, mass, mass-effect, or extra-axial fluid collection. There is no effacement of cerebral sulci or basal subarachnoid cister ns. There is no hydrocephalus. There is no midline shift. Barry-white matter distinction is preserv ed. Supplemental related to old left parietal infarct. Severe patchy and confluent white matter hypodensi ties in posterior hemispheres redemonstrated. Old lacunar infarct left basal ganglia. Atelectatic srinath cifications within the carotid siphons. Mild generalized supratentorial volume loss. Visualized paranasal sinuses and mastoid air cells well pneumatized. Dense cerumen within the right e xternal auditory canal. Lesser degree of cerumen in the left external auditory canal. Orbits and glob es are intact. IMPRESSION: 1. No acute intracranial abnormality seen. 2. Similar mild generalized atrophy with severe patchy and confluent changes of chronic small vessel ischemic disease. Old left basal ganglionic lacunar infarct and old left parietal infarct.
--- NOTE | 2019-09-10 16:28 | PN ---
PROGRESS NOTE DATE OF SERVICE: 09/10/2019. This 73-year-old gentleman was admitted with change in mental status. Continued to be belligerent and confused. The patient is not cooperating. The patient has history of noncompliance also. The patient being closely monitored. A CT scan of the brain, brain was ordered today which showed no acute lesion and generalized atrophy and changes of chronic small vessel ischemia and old basal ganglia lacunar infarct and left parietal infarct also noted. Past medical history reviewed. PAST MEDICAL HISTORY: Reviewed. REVIEW OF SYSTEMS: Could not be taken. CURRENT MEDICATIONS: Reviewed and include: 1. Tylenol p.r.n. 2. [place] 10 mg p.r.n. 3. Aspirin 160 mg p.o. daily. 4. Lotrimin daily. 5. Haldol 5 mg p.r.n. 6. Heparin 5000 subcu b.i.d. 7. Melatonin 6 mg q.h.s. 8. Narcan. 9. Flomax 0.4 daily. 10.Desyrel 50 mg p.o. q.h.s. PHYSICAL EXAM: Patient is conscious, confused. Pulse 88. Blood pressure 120/80, respiration 18, temperature 98.2, pulse ox 92 percent on room air. HEENT: Conjunctivae normal. NECK: No JVD. CARDIOVASCULAR: S1, S2 muffled. RESPIRATORY: Breath sounds diminished in the bases. A few scattered rhonchi and crackles. Abdomen soft. Nervous system: Moves all four extremities. No focal deficits. LABS: CBC within normal limits and glucose 173. ASSESSMENT: 1. Change in mental status possible acute on chronic metabolic encephalopathy, possible acute transient ischemic attack. 2. Old left basal ganglia lacunar infarct with old left parietal infarct. 3. Bilateral carotid stenosis. 4. Bilateral blindness. 5. Hyperlipidemia. 6. Chronic degenerative joint disease. 7. History of nicotine dependence. 8. Deep vein thrombosis prophylaxis. 9. Increased AST. 10.History of spinal stenosis. 11.History of legal blindness. 12.Anxiety/depression. 13.Gait dysfunction. 14.FULL CODE. RECOMMENDATIONS AND DISCUSSION: Recommend to continue current medications, continue monitoring, management and symptomatic treatment. Otherwise, at this time, continue with antiplatelet agents. Neurology and Psychiatry evaluations. PT/OT evaluation. Social Work to follow. Ensure safety. Otherwise DVT prophylaxis. Incentive spirometry. We will follow the patient closely. Guarded prognosis because of multiple complex medical issues. Further recommendations to follow. Otherwise we will continue to monitor. Guarded prognosis. Further recommendations to follow. MMODL / IJN: [id number] / [facility]ITALAbraham
[2019-09-10] MEDS: PANTOPRAZOLE 40 MG TABLET PO SCH (17:19)
[2019-09-10] MEDS: HALOPERIDOL LACTATE 5 MG/ML 1 ML VIAL IM PRN (19:34)
[2019-09-10] MEDS: HYDROcodone/APAP 10-325MG 1 EACH TAB PO PRN (20:35)
[2019-09-10] MEDS: traZODone HCL 50 MG TAB PO SCH (20:35)
[2019-09-10] MEDS: MELATONIN 3 MG TABLET PO SCH (20:35)
--- NOTE | 2019-09-10 23:47 | CONS ---
CONSULTATION DATE OF SERVICE: 09/10/2019. PURPOSE FOR CONSULTATION: Evaluate for agitation. HISTORY PRESENTING ILLNESS: The patient provided very limited information in regards to his current situation. According to the medical record, he his legally blind. He has had issues with CVA and hearing difficulties. It is noted he has a history of anxiety and depression. According to the record, he was at his apartment. He lives independently. He was having difficulties where he was yelling in his apartment. Police were ultimately called. He was described as being increasingly confused and "somewhat agitated" as reason for his being brought to the hospital. Currently, he is not on any psychotropic medications. The patient himself stated that he has not had past psychiatric issues nor has he been on medications. The patient is not currently on any psychotropic medications save for trazodone 50 mg, which apparently has been prescribed for sleep. When I asked him about the notation in the chart regarding anxiety and depression. He said the biggest problem he has is that it is difficult for anyone to put up with him as he has a harsh personality. According to what the patient say as well as what is in the record, he lives in his own apartment independently. He gets support from [facility] [employer]. He says the staff person named Dk comes in and does some basic home chores in support of the patient. He has said that she can be reached through [facility]. He was able to provide the accurate telephone number on namely [phone]. He says that Dk does shopping for him and that the only food that he eats is ham that he gets by the pound from [email or web address]. He was quite insistent on the idea that is the only food that he eats. He indicates that he does not go out in the community. He did not provide any information about his general daily function. He did not provide any information about circumstances at home that the lead up to his hospitalization or why he was apparently calling out at home. Since he has been in the hospital, he will start hitting his bedside table or calling out. The main issue by his own statement is that he wants ice cream. According to staff, he has eaten some 10 individual serving cartons of ice cream since admission. Staff note that as soon as he gets the ice cream, he is completely calm. Patient has seemed to indicate that he sleeps well at night and that he does not clearly have any significant psychiatric symptoms in the daytime. It is unclear how reliable that information actually is that the patient reported. The patient notes that he has 3 daughters. He says he stays in touch with 1 daughter named Conchis. MENTAL STATUS EXAM: Patient was lying in bed, eating some ice cream. Every once in a while some of the ice cream would drop off his spoon on his gown. Sometimes he would find it with his hand and eat it and at other times not. He responded to most questions with answers that were appropriate, though he did not provide much information. He did not say much spontaneously, though he was somewhat interactive. His thoughts appeared to be fairly clear and coherent. He was somewhat intense in his affect at times, though at other times he was calm and even mannered. His mood was not clearly down or depressed. At the end of the interview, he was friendly. He made comments that were appropriate to the consultation situation. He did not answer formal cognitive questions, though as noted, he gave a telephone number accurately. His speech was clear, coherent, and goal directed. Thought process and thought content was appropriate. He seemed to be reasonably aware of his current situation and the environment. ASSESSMENT: This 74-year-old male is diagnosed with adjustment disorder with mixed emotional features. Whether or not he has underlying mood disorder remains to be seen. It is not clear what his basic level of function is in his home situation. There is a question of appropriateness for independent living. Though at this point, we do not have adequate information to make a clear assessment. My recommendation is to get a hold of his home mathematician Dk from [facility] as soon as possible to get further information about his current circumstances as well as his overall level of functioning and basic capabilities. It might be reasonable to consider starting him on an antidepressant though again that would be best determined once we could get more information from the home care provider who apparently would be the person knowing him the most. In addition, Social Work should make an effort as soon as possible to get a hold of his daughter, Conchis, whom he does state that he stays in contact with. I will defer to his attending physicians as to whether or not ongoing psychiatric care is warranted. MMTYRONE / ALISONN: [id number] /
[2019-09-11] MEDS: HYDROcodone/APAP 10-325MG 1 EACH TAB PO PRN ×2 (03:59→14:30)
[2019-09-11] MEDS: HALOPERIDOL LACTATE 5 MG/ML 1 ML VIAL IM PRN (04:28)
[2019-09-11 07:55] LABS: Basophils % (A) 0 %; Eosinophils # (A) 0.1 k/uL (0-0.7); Eosinophils % (A) 1 %; HCT 40.9 % (39.0-53.0); HGB 13.8 gm/dL (13.0-17.5); Lymphocytes # (A) 1.3 k/uL (1.0-4.8); Lymphocytes % (A) 18 %; MCH 32.7 pg (25.0-35.0); MCHC 33.8 g/dL (31.0-37.0); MCV 96.9 fL (80.0-100.0); Mean Platelet Volume 6.6; Monocytes # (A) 0.3 k/uL (0-1.0); Monocytes % (A) 4 %; Neutrophils # (A) 5.4 k/uL (1.3-7.7); Neutrophils % (A) 76 %; Platelet Count 201 k/uL (150-450); RBC 4.22 m/uL (4.30-5.90); RDW 12.4 % (11.5-15.5); WBC 7.2 k/uL (3.8-10.6)
[2019-09-11 08:03] LABS: Calcium 9.4 mg/dL (8.4-10.2); Potassium 4.2 mmol/L (3.5-5.1)
[2019-09-11] MEDS: ASPIRIN 81 MG PO SCH (10:12)
[2019-09-11] MEDS: CLOTRIMAZOLE 1% CREAM 15 GM TUBE TOPICAL SCH ×2 (10:12→20:56)
[2019-09-11] MEDS: HEPARIN SODIUM,PORCINE 5,000 UNIT/ML 1 ML VIAL SQ SCH ×2 (10:12→20:56)
[2019-09-11] MEDS: PANTOPRAZOLE 40 MG TABLET PO SCH (10:12)
[2019-09-11] MEDS: SODIUM CHLORIDE 0.9% 1,000 ML IV SCH (10:13)
[2019-09-11] MEDS: TAMSULOSIN 0.4 MG CAP.ER.24H PO SCH (10:13)
--- NOTE | 2019-09-11 12:27 | P.CNNES ---
History of Present Illness Consult date: 09/11/19 Reason for Consult: AMS Chief complaint: Generalized weakness and fatigue History of Present Illness: HISTORY OF PRESENT ILLNESS: Thank you for allowing me to evaluate Mr. Christ Pollard. Mr. Pollard is a 74-year-old man with past medical history of hyperlipidemia, stroke and 2 TIAs, insomnia, chronic lower back pain, spinal stenosis, glaucoma (legally blind in both eyes), carotid occlusion s/p b/l carotid endarterectomies, progressive Yamile [place] for generalized weakness and fatigue. Patient unable to provide any history. Patient requesting ice cream, and per sitter, patient only wanting to have ice cream. Patient does not know how he got to the hospital. PAST MEDICAL HISTORY: hyperlipidemia, stroke and 2 TIAs, insomnia, chronic lower back pain, spinal stenosis, glaucoma (legally blind in both eyes), carotid occlusion PAST SURGICAL HISTORY: Bilateral carotid endarterectomies, cataract removals, right hand finger and limitations HOME MEDICATIONS: Bath, trazodone, melatonin, aspirin, atorvastatin, tamsulosin ALLERGIES: NKDA SOCIAL HISTORY: Current activity smoker FAMILY HISTORY: Unknown REVIEW OF SYSTEMS: The 14 systems are reviewed and no additional points are identified compared to the review of systems documented history and physical PHYSICAL EXAMINATION: VITAL SIGNS: T 98.3 HR 103 RR 18 BP 128/71 O2 sat 97% on RA GEN.: NAD, pleasant and cooperative HEENT: NCAT, sclera without icterus, legally blind in both eyes but able to detect light in R eye (and causes pain) NECK: Supple SKIN AND EXTREMITIES: Warm to touch, no edema NEURO: MENTAL STATUS: Patient alert and oriented to self and place. Calls president "[employer]ina [employer]." Speech fluent, following all commands readily. CRANIAL NERVES II THROUGH XII: II: L pupil dilated and nonreactive, R pupil minimally reactive to light. Blind in both eyes but able to detect light in R eye. III, IV, : patient prefers to keep his eyes closed. V: Facial sensation intact from V1-3. VII. No clear facial asymmetry. XI: Shoulder shrug intact. XII: Tongue midline without fasciculation or atrophy. MOTOR: Normal bulk/tone. No pronator drift or tremor. Strength is at least 4+/5 in all 4 extremities. SENSORY: Intact to light touch in all 4 extremities. REFLEXES: 1+ throughout. Toes are downgoing. COORDINATION/GAIT: Deferred DIAGNOSTIC TESTING: LABORATORY: WBC 7.2 hemoglobin 13.8 platelet 201 PTT 10.2 INR 0.9 sodium 137 potassium 4.2 chloride 103 bicarb 28 BUN 16 creatinine 0.96 glucose 104 AST 164 ALT 68 alk phos 80 urinalysis negative urine toxicology opiate/oxycodone detected IMAGING: CT head without contrast 09/10/2019: No acute intracranial abnormality seen. Similar mild generalized atrophy with severe patchy and confluent changes of chronic small vessel ischemic disease. Old left basal ganglionic lacunar infarct and old left parietal infarct. ASSESSMENT/RECOMMENDATIONS: 74-year-old man with past medical history of hyperlipidemia, stroke and 2 TIAs, insomnia, chronic lower back pain, spinal stenosis, glaucoma (legally blind in both eyes), carotid occlusion s/p b/l carotid endarterectomies, progressive Yamile [place] for generalized weakness and fatigue, consulting Neurology for generalized weakness. There is no baseline we can compare the patient's current state. Patient with no obvious focal neuro deficit. ED note states that patient is staying as patient may not have a safe location to return to. Neurology will sign off at this time. Please feel free to contact Neurology again if with additional questions or concerns. Past Medical History Past Medical History: CVA/TIA, Eye Disorder, Hearing Disorder / Deafness, Hyperlipidemia Additional Past Medical History / Comment(s): Pt states he has had a stroke and 2 TIAs, CHENEGA bilaterally, insomnia, chronic lower back pain, spinal stenosis, legally blind bilaterally, glaucoma bilaterally, caratid re-occlusion, bronchitis, allergic rhinitis; constipation. History of Any Multi-Drug Resistant Organisms: None Reported Additional Past Surgical History / Comment(s): Right hand finger amps, colonoscopy, bilateral carotid endartectomies, cataract removals Past Anesthesia/Blood Transfusion Reactions: No Reported Reaction Past Psychological History: Anxiety, Depression Smoking Status: Current every day smoker Past Alcohol Use History: None Reported Past Drug Use History: None Reported - Past Family History Mother History Unknown: Yes Father History Unknown: Yes Daughter(s) Family Medical History: Unable to Obtain Medications and Allergies Home Medications Medication Instructions Recorded Confirmed Type HYDROcodone/APAP 10-325MG [Bath 2 tab PO QID PRN 09/27/14 09/10/19 History 10-325] Aspirin EC [Ecotrin Low Dose] 162 mg PO DAILY 05/22/18 09/10/19 History Melatonin 6 mg PO HS 05/22/18 09/10/19 History Naloxone HCl [Narcan] 4 mg NASAL DIRECTED 05/22/18 09/10/19 History traZODone HCL 50 mg PO HS 05/22/18 09/10/19 History Atorvastatin Calcium [Lipitor] 20 mg PO HS #30 tab 05/28/18 09/10/19 Rx Tamsulosin [Flomax] 0.4 mg PO DAILY 05/18/19 09/10/19 History Allergies Allergy/AdvReac Type Severity Reaction Status Date / Time No Known Allergies Allergy Verified 09/10/19 09:14 Physical Examination - Vital Signs Vital Signs: Vital Signs Temp Pulse Resp BP Pulse Ox 09/11/19 04:00 98.3 F 103 H 18 128/71 97 09/10/19 21:00 98.3 F 83 16 121/55 94 L 09/10/19 11:13 98.1 F 88 18 125/81 95 Intake and Output 09/10/19 09/11/19 09/11/19 22:59 06:59 14:59 Intake Total 600 600 Output Total 550 300 Balance 50 300 Intake: Oral 600 600 Output: Urine 550 300 Other: Voiding Method Indwelling Catheter Results - Laboratory Findings CBC and BMP: 09/11/19 07:06 09/11/19 07:06 Abnormal Lab Findings: Abnormal Labs 09/09/19 09/09/19 09/09/19 04:45 04:45 06:14 RBC Carbon Dioxide BUN 29 H Glucose AST 164 H CK-MB (CK-2) 38.6 H Urine Protein Trace H Urine Ketones 1+ H Urine Blood Small H Urine Opiates Screen Detected H Ur Oxycodone Screen Detected H 09/10/19 09/11/19 09/11/19 07:36 07:06 07:06 RBC 4.22 L Carbon Dioxide 33 H BUN 23 H Glucose 173 H 104 H AST CK-MB (CK-2) Urine Protein Urine Ketones Urine Blood Urine Opiates Screen Ur Oxycodone Screen
--- NOTE | 2019-09-11 16:09 | P.PN ---
Subjective Progress Note Date: 09/11/19 Principal diagnosis: This is a 73-year-old male who was recently admitted with change in mental status and is being closely monitored. Patient continues to be confused and belligerent. When talking with the patient today patient was pleasant and calm as he was eating ice cream and per nursing staff that is the only thing that keeps him calm. Neurology and psychiatry were consulted. Neurology has signed off at this time and psychiatry is recommending gathering further information from [facility] as well as his daughter Conchis who may know more information about his medical history. Case management and social service liaison following. Patient may need possible placement and guardianship as he currently lives at home alone and has visiting nurses come out 2 hours per week to bring him groceries as he will not allow them to enter the home. Currently patient denies any chest pain, shortness of breath, or palpitations. Patient is afebrile. Patient denies any nausea or vomiting and is tolerating diet. Patient does have a sitter at the bedside. Will continue to monitor closely. Guarded prognosis. Objective - Vital Signs Vital signs: Vital Signs Temp 98.3 F 09/11/19 04:00 Pulse 89 09/11/19 12:04 Resp 18 09/11/19 04:00 BP 136/71 09/11/19 12:04 Pulse Ox 93 L 09/11/19 12:04 Intake & Output 09/10/19 09/11/19 09/11/19 18:59 06:59 18:59 Intake Total 400 1200 Output Total 1200 850 Balance -800 350 Intake: Oral 400 1200 Output: Urine 1200 850 Straight 600 Other: Voiding Method Urinal Indwelling Catheter Indwelling Catheter Incontinent # Voids 2 - Exam Gen: This is a 74-year-old male sitting up in bed with a patient sitter at the bedside in no acute distress eating ice cream. Vital signs are stable. Temp is 98.3F, pulse is 103, respirations are 18, blood pressure is 120/71, oxygen saturation is 97% on room air. HEENT: Head is atraumatic, normocephalic. Patient is legally blind. Sclerae is anicteric. NECK: Supple. No JVD. No lymphadenopathy. No thyromegaly. LUNGS: Diminished breath sounds at the bases with a few scattered rhonchi and crackles noted. No intercostal retractions. HEART: Cardio S1 and S2 are muffled ABDOMEN: Soft. Bowel sounds are present. No masses. No tenderness. EXTREMITIES: No pedal edema. No calf tenderness. NEUROLOGICAL: Patient is awake, alert and oriented x1-2. - Labs CBC & Chem 7: 09/11/19 07:06 09/11/19 07:06 Labs: Abnormal Lab Results - Last 24 Hours (Table) 09/11/19 09/11/19 Range/Units 07:06 07:06 RBC 4.22 L (4.30-5.90) m/uL Glucose 104 H (74-99) mg/dL Microbiology - Last 24 Hours (Table) 09/09/19 04:45 Blood Culture - Preliminary Blood No Growth after 48 hours Assessment and Plan Assessment: Change in mental status, possible acute on chronic metabolic encephalopathy, possible acute transient ischemic attack old left basal ganglia lacunar infarct with old left parietal infarct Bilateral carotid stenosis Bilateral blindness Hyperlipidemia Chronic degenerative joint disease History of nicotine dependence Deep vein thrombosis prophylaxis Increased AST History of spinal stenosis history of legal blindness Anxiety/depression Gait dysfunction Full code Recommendations and discussion: Recommend to continue current medications, management, and symptomatic treatment. Will continue to monitor closely. Case management and social work are working on finding possible guardianship and discussing with visiting nurses about the care he has been receiving. Will await to obtain more information from visiting nurses about his current medications and living situations. Social work to contact APS. Patient may benefit from possible placement as he is not safe on his own at home. We'll continue with the safety investigator at this time. PT/OT once stable and patient is cooperative. Prognosis is extremely guarded due to his multiple complex medical issues. Further recommendations to follow.
[2019-09-11] MEDS: traZODone HCL 50 MG TAB PO SCH (20:56)
[2019-09-11] MEDS: MELATONIN 3 MG TABLET PO SCH (20:56)
[2019-09-12] MEDS: SODIUM CHLORIDE 0.9% 1,000 ML IV SCH ×2 (03:04→17:38)
[2019-09-12] MEDS: HYDROcodone/APAP 10-325MG 1 EACH TAB PO PRN ×3 (05:17→19:31)
[2019-09-12 09:07] LABS: Basophils % (A) 0 %; Eosinophils # (A) 0.2 k/uL (0-0.7); Eosinophils % (A) 2 %; HCT 42.5 % (39.0-53.0); HGB 14.7 gm/dL (13.0-17.5); Lymphocytes # (A) 1.8 k/uL (1.0-4.8); Lymphocytes % (A) 23 %; MCH 33.2 pg (25.0-35.0); MCHC 34.5 g/dL (31.0-37.0); MCV 96.2 fL (80.0-100.0); Mean Platelet Volume 6.4; Monocytes # (A) 0.4 k/uL (0-1.0); Monocytes % (A) 5 %; Neutrophils # (A) 5.3 k/uL (1.3-7.7); Neutrophils % (A) 67 %; Platelet Count 231 k/uL (150-450); RBC 4.42 m/uL (4.30-5.90); RDW 12.5 % (11.5-15.5); WBC 7.9 k/uL (3.8-10.6)
[2019-09-12 09:16] LABS: Potassium 4.8 mmol/L (3.5-5.1)
[2019-09-12] MEDS: ASPIRIN 81 MG PO SCH (09:32)
[2019-09-12] MEDS: CLOTRIMAZOLE 1% CREAM 15 GM TUBE TOPICAL SCH ×2 (09:32→20:27)
[2019-09-12] MEDS: TAMSULOSIN 0.4 MG CAP.ER.24H PO SCH (09:32)
[2019-09-12] MEDS: HEPARIN SODIUM,PORCINE 5,000 UNIT/ML 1 ML VIAL SQ SCH ×2 (09:32→20:26)
[2019-09-12] MEDS: PANTOPRAZOLE 40 MG TABLET PO SCH (09:32)
--- NOTE | 2019-09-12 17:26 | P.PN ---
Subjective Progress Note Date: 09/12/19 Principal diagnosis: This is a 73-year-old male who was recently admitted with change in mental status and is being closely monitored. Patient continues to be confused and belligerent. When talking with the patient today patient was pleasant and calm as he was eating ice cream and per nursing staff that is the only thing that keeps him calm. Neurology and psychiatry were consulted. Neurology has signed off at this time and psychiatry is recommending gathering further information from [employer] as well as his daughter Conchis who may know more information about his medical history. Case management and social media designer following. Patient may need possible placement and guardianship as he currently lives at home alone and has visiting nurses come out 2 hours per week to bring him groceries as he will not allow them to enter the home. Currently patient denies any chest pain, shortness of breath, or palpitations. Patient is afebrile. Patient denies any nausea or vomiting and is tolerating diet. Patient does have a sitter at the bedside. Will continue to monitor closely. Guarded prognosis. 09/12/2019 Patient is sitting up in bed in no acute distress eating ice cream. Patient is belligerent upon entering the room and refusing to speak with me unless I bring more ice cream. Unable to obtain a review of systems as he keeps cursing at short story writer with each question. Sitter at the bedside. Patient was petitioned today by social work as he is refusing any type of placement but his current apartment. Adult protective services met with social work and patient this am and was witness to his refusal. A court hearing is scheduled this tuesday for possible appointment of temporary guardian as the patient is not appropriate to care for himself and to make his own decisions. Overnight patient pulled his indwelling catheter out and was replaced. No blood or trauma noted on exam today. Patient is currently sitting up in bed in only a diaper and refusing to wear his gown. Will continue to monitor closely. Objective - Vital Signs Vital signs: Vital Signs Temp 97.4 F L 09/12/19 11:29 Pulse 99 09/12/19 11:29 Resp 16 09/12/19 11:29 BP 119/64 09/12/19 11:29 Pulse Ox 95 09/12/19 11:29 Intake & Output 09/11/19 09/12/19 09/12/19 18:59 06:59 18:59 Intake Total 125 500 Output Total 600 Balance -600 125 500 Intake: Oral 125 500 Output: Urine 600 Other: Voiding Method Indwelling Catheter Indwelling Catheter Indwelling Catheter - Exam Gen: This is a 74-year-old male sitting up in bed with a patient sitter at the bedside in no acute distress eating ice cream. Vital signs are stable. Temp is 98.1F, pulse is 82, respirations are 16, blood pressure is 126/79, oxygen saturation is 95% on room air. HEENT: Head is atraumatic, normocephalic. Patient is legally blind. Sclerae is anicteric. NECK: Supple. No JVD. No lymphadenopathy. No thyromegaly. LUNGS: Diminished breath sounds at the bases with a few scattered rhonchi and crackles noted. No intercostal retractions. HEART: Cardio S1 and S2 are muffled ABDOMEN: Soft. Bowel sounds are present. No masses. No tenderness. EXTREMITIES: No pedal edema. No calf tenderness. NEUROLOGICAL: Patient is awake, alert and oriented x1-2. 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 Will continue to monitor closely. Case management and social work are working on finding possible guardianship and a court hearing is scheduled this tuesday for temporary guardianship appointment. Patient was petitioned by social work as he is unable to make sound decisions for himself and care for himself in his current living situation. We'll continue with the safety attendant at this time. PT/OT once stable and patient is cooperative. Currently patient is requiring assistance to get up from a lying position to sitting position and PT recommends JOHN upon discharge. Prognosis is extremely guarded due to his multiple complex medical issues. Further recommendations to follow.
[2019-09-12] MEDS: MELATONIN 3 MG TABLET PO SCH (20:26)
[2019-09-12] MEDS: traZODone HCL 50 MG TAB PO SCH (20:27)
[2019-09-13] MEDS: CLOTRIMAZOLE 1% CREAM 15 GM TUBE TOPICAL SCH ×2 (07:58→20:26)
[2019-09-13] MEDS: PANTOPRAZOLE 40 MG TABLET PO SCH (07:58)
[2019-09-13] MEDS: ASPIRIN 81 MG PO SCH (07:58)
[2019-09-13] MEDS: TAMSULOSIN 0.4 MG CAP.ER.24H PO SCH (07:58)
[2019-09-13] MEDS: HEPARIN SODIUM,PORCINE 5,000 UNIT/ML 1 ML VIAL SQ SCH ×2 (07:58→20:26)
[2019-09-13] MEDS: HYDROcodone/APAP 10-325MG 1 EACH TAB PO PRN ×3 (08:08→23:31)
--- NOTE | 2019-09-13 10:18 | P.PN ---
Subjective Progress Note Date: 09/13/19 Principal diagnosis: This is a 73-year-old male who was recently admitted with change in mental status and is being closely monitored. Patient continues to be confused and belligerent. When talking with the patient today patient was pleasant and calm as he was eating ice cream and per nursing staff that is the only thing that keeps him calm. Neurology and psychiatry were consulted. Neurology has signed off at this time and psychiatry is recommending gathering further information from [employer] as well as his daughter Conchis who may know more information about his medical history. Case management and social service technician following. Patient may need possible placement and guardianship as he currently lives at home alone and has visiting nurses come out 2 hours per week to bring him groceries as he will not allow them to enter the home. Currently patient denies any chest pain, shortness of breath, or palpitations. Patient is afebrile. Patient denies any nausea or vomiting and is tolerating diet. Patient does have a sitter at the bedside. Will continue to monitor closely. Guarded prognosis. 09/12/2019 Patient is sitting up in bed in no acute distress eating ice cream. Patient is belligerent upon entering the room and refusing to speak with me unless I bring more ice cream. Unable to obtain a review of systems as he keeps cursing at telegraphic typewriter operator with each question. Sitter at the bedside. Patient was petitioned today by social work as he is refusing any type of placement but his current apartment. Adult protective services met with social work and patient this am and was witness to his refusal. A court hearing is scheduled this tuesday for possible appointment of temporary guardian as the patient is not appropriate to care for himself and to make his own decisions. Overnight patient pulled his indwelling catheter out and was replaced. No blood or trauma noted on exam today. Patient is currently sitting up in bed in only a diaper and refusing to wear his gown. Will continue to monitor closely. 09/13/2019 Patient is currently lying in bed sleeping with a sitter at the bedside. Per nursing staff no acute overnight issues and patient is calm and cooperative as long as he is receiving "polk mist pop and ice cream". Patient is awaiting a court hearing tomorrow in an attempt to obtain temporary guardianship so placement can be established. Case management and social work are following closely. Patient will continue to work with PT/OT for strength and mobility. Labs done yesterday and within normal limits. Will continue to monitor closely. Objective - Vital Signs Vital signs: Vital Signs Temp 97.3 F L 09/13/19 05:00 Pulse 87 09/13/19 05:00 Resp 18 09/13/19 05:00 BP 99/61 09/13/19 05:00 Pulse Ox 96 09/13/19 05:00 Intake & Output 09/12/19 09/13/19 09/13/19 18:59 06:59 18:59 Intake Total 500 100 Output Total 500 Balance 500 -400 Intake: Oral 500 100 Output: Urine 500 Straight 500 Other: Voiding Method Indwelling Catheter Indwelling Catheter # Voids 220 - Exam Gen: This is a 74-year-old male lying in bed sleeping but arousable with a patient sitter at the bedside in no acute distress. Vital signs are stable. Temp is 97.3 F, pulse is 87, respirations are 18, blood pressure is 99/61, oxygen saturation is 96% on room air. HEENT: Head is atraumatic, normocephalic. Patient is legally blind. Sclerae is anicteric. NECK: Supple. No JVD. No lymphadenopathy. No thyromegaly. LUNGS: Diminished breath sounds at the bases with a few scattered rhonchi noted. No intercostal retractions. HEART: Cardio S1 and S2 are muffled ABDOMEN: Soft. Bowel sounds are present. No masses. No tenderness. EXTREMITIES: No pedal edema. No calf tenderness. NEUROLOGICAL: Patient is asleep but arousable, alert and oriented x1-2. 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 Will continue to monitor closely. Case management and social work are following. Court hearing scheduled for tomorrow in an attempt to obtain temporary guardianship for placement. We'll continue with the senior safety support manager at this time. Patient was petitioned. PT/OT following. Prognosis is extremely guarded due to his multiple complex medical issues. Further recommendations to follow.
[2019-09-13] MEDS: MELATONIN 3 MG TABLET PO SCH (20:31)
[2019-09-13] MEDS: traZODone HCL 50 MG TAB PO SCH (20:31)
[2019-09-14] MEDS: CLOTRIMAZOLE 1% CREAM 15 GM TUBE TOPICAL SCH ×2 (07:40→22:32)
[2019-09-14] MEDS: HEPARIN SODIUM,PORCINE 5,000 UNIT/ML 1 ML VIAL SQ SCH ×2 (07:40→22:24)
[2019-09-14] MEDS: HYDROcodone/APAP 10-325MG 1 EACH TAB PO PRN ×3 (07:56→23:56)
[2019-09-14] MEDS: TAMSULOSIN 0.4 MG CAP.ER.24H PO SCH (07:56)
[2019-09-14] MEDS: ASPIRIN 81 MG PO SCH (07:56)
[2019-09-14] MEDS: PANTOPRAZOLE 40 MG TABLET PO SCH (07:56)
--- NOTE | 2019-09-14 13:16 | P.CN ---
Psychiatric Consult - . Consult date: 09/14/19 Consult:: 09/14/19 13:03 The patient was seen as a follow-up psychiatric consultation after he was seen first time on 09/10/[address] Willson who recommended to get collateral information from the patient's network security officer about the patient current circumstances as well as overall level of functioning and basic capabilities. Subjective and objective: The patient was not fully cooperative with the evaluation and he did not answer questions about his mood and homicidal ideation even with multiple encouragement from me and the other staff in the unit for the patient to talk but apparently he selected not to answer questions. Patient is sporadically answered a few questions and he denies having thoughts to hurt self or others. As per nursing staff, the initial psych consultation was placed to because patient reported initially that he will get a gun and shoot himself. According to collateral information obtained by the nursing from his network security officer the patient used to have similar suicidal threats for the past 6 years when he got frustr ated or angry. The patient appears his stated age, was dressed in hospital gown, lying in bed, with no abnormal movements noticed. Patient was not engaged and not cooperative with no eye contact. Psychomotor activity was decreased and the patient apparently chooses not to answer questions. Mood was not reported and the patient affect was flat. Thoughts form and content was not assessed because the patient was not cooperative as well as perceptual disturbances but there is no report of any hallucinations or delusions. The patient did not answer question so his cognitive function was not assessed. Apparently the patient has limited insight and poor judgment with choosing not to cooperate with the evaluation. Assessment: Probably the patient has adjustment disorder with mixed emotional features as per previous psychiatric evaluation. Plan: At this point I wasn't able to make decision about the patient's suicidal. Please call the psychiatric team if the patient is willing to talk and cooperate with the psychiatric evaluation. Please call the psychiatric team before discharging the patient.
--- NOTE | 2019-09-14 15:25 | P.PN ---
Subjective Progress Note Date: 09/14/19 Principal diagnosis: This is a 73-year-old male who was recently admitted with change in mental status and is being closely monitored. Patient continues to be confused and belligerent. When talking with the patient today patient was pleasant and calm as he was eating ice cream and per nursing staff that is the only thing that keeps him calm. Neurology and psychiatry were consulted. Neurology has signed off at this time and psychiatry is recommending gathering further information from [employer] as well as his daughter Conchis who may know more information about his medical history. Case management and hospice social worker following. Patient may need possible placement and guardianship as he currently lives at home alone and has visiting nurses come out 2 hours per week to bring him groceries as he will not allow them to enter the home. Currently patient denies any chest pain, shortness of breath, or palpitations. Patient is afebrile. Patient denies any nausea or vomiting and is tolerating diet. Patient does have a sitter at the bedside. Will continue to monitor closely. Guarded prognosis. 09/12/2019 Patient is sitting up in bed in no acute distress eating ice cream. Patient is belligerent upon entering the room and refusing to speak with me unless I bring more ice cream. Unable to obtain a review of systems as he keeps cursing at technical writer with each question. Sitter at the bedside. Patient was petitioned today by social work as he is refusing any type of placement but his current apartment. Adult protective services met with social work and patient this am and was witness to his refusal. A court hearing is scheduled this tuesday for possible appointment of temporary guardian as the patient is not appropriate to care for himself and to make his own decisions. Overnight patient pulled his indwelling catheter out and was replaced. No blood or trauma noted on exam today. Patient is currently sitting up in bed in only a diaper and refusing to wear his gown. Will continue to monitor closely. 09/13/2019 Patient is currently lying in bed sleeping with a sitter at the bedside. Per nursing staff no acute overnight issues and patient is calm and cooperative as long as he is receiving "polk mist pop and ice cream". Patient is awaiting a court hearing tomorrow in an attempt to obtain temporary guardianship so placement can be established. Case management and social work are following closely. Patient will continue to work with PT/OT for strength and mobility. Labs done yesterday and within normal limits. Will continue to monitor closely. 09/14/2019 Patient is sitting up in bed in no acute distress. No Acute overnight issues. Social work attended a court hearing today and was not granted temporary guardianship for placement as the guardian had not personally interviewed the patient. A scheduled hearing is rescheduled for next week Tuesday and will attempt for placement at that time. Patient is being followed by psychiatry as he allegedly made previous threats of wanting to harm himself. Patient denies suicidal ideation at this time. Patient becomes agitated and aggressive at staff at times. Will continue to monitor closely. Objective - Vital Signs Vital signs: Vital Signs Temp 98.7 F 09/14/19 11:50 Pulse 91 09/14/19 14:47 Resp 16 09/14/19 14:47 BP 122/59 09/14/19 11:50 Pulse Ox 97 09/14/19 11:50 Intake & Output 09/13/19 09/14/19 09/14/19 18:59 06:59 18:59 Intake Total 450 480 Output Total 450 200 200 Balance -450 250 280 Weight 63.503 kg Intake: Oral 450 480 Output: Urine 450 200 200 Other: Voiding Method Urinal Toilet Toilet # Voids 1 1 - Exam Gen: This is a 74-year-old male lying in bed sleeping but arousable with a patient sitter at the bedside in no acute distress. Temp is 98.1 F, pulse is 103, respirations are 16, blood pressure is 124/72, oxygen saturation is 95% on room air. HEENT: Head is atraumatic, normocephalic. Patient is legally blind. Sclerae is anicteric. NECK: Supple. No JVD. No lymphadenopathy. No thyromegaly. LUNGS: Diminished breath sounds at the bases with a few scattered rhonchi noted. No intercostal retractions. HEART: Cardio S1 and S2 are muffled ABDOMEN: Soft. Bowel sounds are present. No masses. No tenderness. EXTREMITIES: No pedal edema. No calf tenderness. NEUROLOGICAL: Patient is asleep but arousable, alert and oriented x1-2. 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 Will continue to monitor closely. Case management and social work are following. Court hearing was held today in an attempt to obtain temporary guardianship for placement and is being rescheduled for next week Tuesday as the appointed guardian did not personally interview the patient prior to the court hearing. PT/OT following. Prognosis is extremely guarded due to his multiple complex medical issues. Further recommendations to follow.
[2019-09-14] MEDS: MELATONIN 3 MG TABLET PO SCH (22:24)
[2019-09-14] MEDS: traZODone HCL 50 MG TAB PO SCH (22:24)
[2019-09-15] MEDS: PANTOPRAZOLE 40 MG TABLET PO SCH (08:51)
[2019-09-15] MEDS: HEPARIN SODIUM,PORCINE 5,000 UNIT/ML 1 ML VIAL SQ SCH ×2 (08:51→23:31)
[2019-09-15] MEDS: CLOTRIMAZOLE 1% CREAM 15 GM TUBE TOPICAL SCH ×2 (08:51→23:30)
[2019-09-15] MEDS: TAMSULOSIN 0.4 MG CAP.ER.24H PO SCH (08:51)
[2019-09-15] MEDS: ASPIRIN 81 MG PO SCH (08:51)
[2019-09-15] MEDS: HYDROcodone/APAP 10-325MG 1 EACH TAB PO PRN ×2 (09:43→16:44)
--- NOTE | 2019-09-15 15:19 | P.PN ---
Subjective This is a pleasant 74 years old male with past medical history of CVA/TIA, hearing disorder, hyperlipidemia, chronic low back pain, spinal stenosis, legally blind, ALLERGIC rhinitis, adjustment disorder, old left basal ganglia infarct and left parietal infarct, bilateral carotid artery stenosis. Patient presents with altered mental status, thought to be metabolic encephalopathy versus acute TIA however his mentation is improved. Patient was noticed to be aggressive to staff and there was risking for some himself to his been evaluated by psychiatric service patient was uncooperative and the psychiatrist recommended a second evaluation prior to discharge, currently patient has a sitter at bedside for safety. collection systems worker on the case for temporal guardianship Hemodynamically he is a stable. Labs are unremarkable and patient denies any other symptoms. He denies chest pain or dyspnea. No abdominal pain. No nausea vomiting. No change in urine or bowel habits. No fever Objective - Vital Signs Vital signs: Vital Signs Temp 97.8 F 09/15/19 12:30 Pulse 105 H 09/15/19 12:30 Resp 16 09/15/19 12:30 BP 107/77 09/15/19 12:30 Pulse Ox 95 09/15/19 12:30 Intake & Output 09/14/19 09/15/19 09/15/19 18:59 06:59 18:59 Intake Total 480 1310 200 Output Total 200 200 Balance 280 1110 200 Weight 63.503 kg Intake: Oral 480 1310 200 Output: Urine 200 200 Other: Voiding Method Toilet Toilet # Voids 1 2 4 # Bowel Movements 1 - Exam -GENERAL: The patient is alert and oriented x2-3, not in any acute distress. -HEENT: Pupils are round and equally reacting to light. EOMI. No scleral icterus. No conjunctival pallor. Normocephalic, atraumatic. No pharyngeal erythema. No thyromegaly. Poor oral hygiene with some teeth are lost CARDIOVASCULAR: S1 and S2 present. No murmurs, rubs, or gallops. PULMONARY: Chest is clear to auscultation, no wheezing or crackles. ABDOMEN: Soft, nontender, nondistended, normoactive bowel sounds. No palpable organomegaly. MUSCULOSKELETAL: No joint swelling or deformity. EXTREMITIES: No cyanosis, clubbing, or pedal edema. NEUROLOGICAL: Gross neurological examination did not reveal any focal deficits. SKIN: No rashes. no petechiae. 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 Continue with sitter. Follow-up psychiatric recommendation. Continue with symptomatic treatment. Continue with pain management. collection systems worker on the case for temporal guardianship which could not be obtained last week for follow-up on this coming week. Labs and medication were reviewed.. Continue same treatment. Continue with symptomatic treatment. Resume home medication. Monitor lytes and vitals. DVT and GI prophylaxis. Further recommendations of the clinical course of the patient DVT prophylaxis: Subcutaneous heparin GI Prophylaxis: Protonix Prognosis is guarded
[2019-09-15] MEDS: traZODone HCL 50 MG TAB PO SCH (23:31)
[2019-09-15] MEDS: MELATONIN 3 MG TABLET PO SCH (23:31)
[2019-09-16] MEDS: LORazepam 2 MG/ML INJ IM PRN (01:11)
[2019-09-16 07:52] LABS: Basophils # (A) 0.1 k/uL (0-0.2); Basophils % (A) 1 %; Eosinophils # (A) 0.3 k/uL (0-0.7); Eosinophils % (A) 3 %; Lymphocytes # (A) 2.4 k/uL (1.0-4.8); Lymphocytes % (A) 30 %; MCH 32.5 pg (25.0-35.0); MCHC 33.3 g/dL (31.0-37.0); MCV 97.4 fL (80.0-100.0); Mean Platelet Volume 6.6; Monocytes # (A) 0.5 k/uL (0-1.0); Monocytes % (A) 6 %; Neutrophils # (A) 4.7 k/uL (1.3-7.7); Neutrophils % (A) 58 %; Platelet Count 334 k/uL (150-450); RBC 5.24 m/uL (4.30-5.90); RDW 12.9 % (11.5-15.5); WBC 8.1 k/uL (3.8-10.6)
[2019-09-16 08:10] LABS: Calcium 10.6 mg/dL (8.4-10.2); Potassium 4.7 mmol/L (3.5-5.1)
[2019-09-16] MEDS: PANTOPRAZOLE 40 MG TABLET PO SCH (08:44)
[2019-09-16] MEDS: HEPARIN SODIUM,PORCINE 5,000 UNIT/ML 1 ML VIAL SQ SCH ×2 (08:45→20:31)
[2019-09-16] MEDS: TAMSULOSIN 0.4 MG CAP.ER.24H PO SCH (08:45)
[2019-09-16] MEDS: ASPIRIN 81 MG PO SCH (08:45)
[2019-09-16] MEDS: CLOTRIMAZOLE 1% CREAM 15 GM TUBE TOPICAL SCH ×2 (08:48→20:31)
[2019-09-16] MEDS: HYDROcodone/APAP 10-325MG 1 EACH TAB PO PRN ×3 (08:51→20:36)
--- NOTE | 2019-09-16 10:04 | P.PN ---
Subjective This is a pleasant 74 years old male with past medical history of CVA/TIA, hearing disorder, hyperlipidemia, chronic low back pain, spinal stenosis, legally blind, ALLERGIC rhinitis, adjustment disorder, old left basal ganglia infarct and left parietal infarct, bilateral carotid artery stenosis. Patient presents with altered mental status, thought to be metabolic encephalopathy versus acute TIA however his mentation is improved. Patient was noticed to be aggressive to staff and there was risking for some himself to his been evaluated by psychiatric service patient was uncooperative and the psychiatrist recommended a second evaluation prior to discharge, currently patient has a sitter at bedside for safety. pediatric social worker on the case for temporal guardianship Hemodynamically he is a stable. Labs are unremarkable and patient denies any other symptoms. He denies chest pain or dyspnea. No abdominal pain. No nausea vomiting. No change in urine or bowel habits. No fever 09/16/2019 Patient is awake and alert and lying In Bed, No New Complaint. Patient Denies Suicidal Ideation or Tendency to Hurt Himself or Others. He says he does not feel weak anymore. Vitals are stable. However his creatinine is elevated at 1.6 compared to 0.9-1.1 up on admission. We will start the patient on IV fluids and check bladder scan. Also will ask for psych follow-up. pediatric social worker is working on outpatient temporal guardianship. Objective - Vital Signs Vital signs: Vital Signs Temp 98.0 F 09/16/19 05:00 Pulse 89 09/16/19 05:00 Resp 16 09/16/19 05:00 BP 117/59 09/16/19 05:00 Pulse Ox 95 09/16/19 05:00 Intake & Output 09/15/19 09/16/19 09/16/19 18:59 06:59 18:59 Intake Total 440 420 Output Total 200 200 Balance 240 220 Intake: Oral 440 420 Output: Urine 200 200 Other: Voiding Method Toilet Toilet # Voids 4 4 1 # Bowel Movements 1 1 - Exam -GENERAL: The patient is alert and oriented x2-3, not in any acute distress. -HEENT: Pupils are round and equally reacting to light. EOMI. No scleral icterus. No conjunctival pallor. Normocephalic, atraumatic. No pharyngeal erythema. No thyromegaly. Poor oral hygiene with some teeth are lost CARDIOVASCULAR: S1 and S2 present. No murmurs, rubs, or gallops. PULMONARY: Chest is clear to auscultation, no wheezing or crackles. ABDOMEN: Soft, nontender, nondistended, normoactive bowel sounds. No palpable organomegaly. MUSCULOSKELETAL: No joint swelling or deformity. EXTREMITIES: No cyanosis, clubbing, or pedal edema. NEUROLOGICAL: Gross neurological examination did not reveal any focal deficits. SKIN: No rashes. no petechiae. - Labs CBC & Chem 7: 09/16/19 07:27 09/16/19 07:27 Labs: Abnormal Lab Results - Last 24 Hours (Table) 09/16/19 Range/Units 07:27 BUN 26 H (9-20) mg/dL Creatinine 1.60 H (0.66-1.25) mg/dL Glucose 114 H (74-99) mg/dL Calcium 10.6 H (8.4-10.2) mg/dL Microbiology - Last 24 Hours (Table) 09/09/19 04:45 Blood Culture - Final Blood No Growth after 144 hours Assessment and Plan Assessment: Change in mental status, it looks patient is back to his baseline Acute kidney injury agitation on admission with risks to self staff Patient might need temporal guardianship old left basal ganglia lacunar infarct with old left parietal infarct Bilateral carotid stenosis Bilateral blindness Hyperlipidemia Chronic degenerative joint disease History of nicotine dependence Deep vein thrombosis prophylaxis Increased AST History of spinal stenosis history of legal blindness Anxiety/depression Gait dysfunction Full code Plan: This is a pleasant 74 years old male who presents with aggressive to staff and possible altered mental status. Continue with sitter. Follow-up psychiatric recommendation. As for sac follow-up. Start IV fluids for elevated creatinine. Continue with symptomatic treatment. Continue with pain management. pediatric social worker on the case for temporal guardianship which could not be obtained last week for follow-up on this coming week. Labs and medication were reviewed.. Continue same treatment. Continue with symptomatic treatment. Resume home medication. Monitor lytes and vitals. DVT and GI prophylaxis. Further recommendations of the clinical course of the patient DVT prophylaxis: Subcutaneous heparin GI Prophylaxis: Protonix Prognosis is guarded
[2019-09-16] MEDS: SODIUM CHLORIDE 0.9% 1,000 ML IV SCH ×2 (10:12→20:40)
[2019-09-16] MEDS: MELATONIN 3 MG TABLET PO SCH (20:36)
[2019-09-16] MEDS: traZODone HCL 50 MG TAB PO SCH (20:36)
[2019-09-17] MEDS: LORazepam 2 MG/ML INJ IM PRN (02:58)
[2019-09-17] MEDS: PANTOPRAZOLE 40 MG TABLET PO SCH (07:13)
[2019-09-17] MEDS: TAMSULOSIN 0.4 MG CAP.ER.24H PO SCH (07:13)
[2019-09-17] MEDS: ASPIRIN 81 MG PO SCH (07:13)
[2019-09-17] MEDS: HEPARIN SODIUM,PORCINE 5,000 UNIT/ML 1 ML VIAL SQ SCH ×4 (07:13→21:05)
[2019-09-17] MEDS: HYDROcodone/APAP 10-325MG 1 EACH TAB PO PRN ×3 (07:14→19:27)
[2019-09-17] MEDS: CLOTRIMAZOLE 1% CREAM 15 GM TUBE TOPICAL SCH ×2 (08:09→21:05)
[2019-09-17] MEDS: SODIUM CHLORIDE 0.9% 1,000 ML IV SCH (08:10)
--- NOTE | 2019-09-17 08:58 | P.PN ---
Subjective This is a pleasant 74 years old male with past medical history of CVA/TIA, hearing disorder, hyperlipidemia, chronic low back pain, spinal stenosis, legally blind, ALLERGIC rhinitis, adjustment disorder, old left basal ganglia infarct and left parietal infarct, bilateral carotid artery stenosis. Patient presents with altered mental status, thought to be metabolic encephalopathy versus acute TIA however his mentation is improved. Patient was noticed to be aggressive to staff and there was risking for some himself to his been evaluated by psychiatric service patient was uncooperative and the psychiatrist recommended a second evaluation prior to discharge, currently patient has a sitter at bedside for safety. body shop worker on the case for temporal guardianship Hemodynamically he is a stable. Labs are unremarkable and patient denies any other symptoms. He denies chest pain or dyspnea. No abdominal pain. No nausea vomiting. No change in urine or bowel habits. No fever 09/16/2019 Patient is awake and alert and lying In Bed, No New Complaint. Patient Denies Suicidal Ideation or Tendency to Hurt Himself or Others. He says he does not feel weak anymore. Vitals are stable. However his creatinine is elevated at 1.6 compared to 0.9-1.1 up on admission. We will start the patient on IV fluids and check bladder scan. Also will ask for psych follow-up. body shop worker is working on outpatient temporal guardianship. 09/17/2019 Patient is awake, not in distress. No new complaint leg no chest pain or dyspnea. No bowel problem or eating difficulty. Patient remains calm with sitter at bedside. Discussed with patient this morning he is willing to cooperate with the psychiatrist to be called. Waiting for early evaluation by psychiatrist as well as aids social worker working on temporal guardianship Objective - Vital Signs Vital signs: Vital Signs Temp 98.0 F 09/17/19 05:00 Pulse 95 09/17/19 05:00 Resp 18 09/17/19 05:00 BP 105/69 09/17/19 05:00 Pulse Ox 94 L 09/17/19 05:00 Intake & Output 09/16/19 09/17/19 09/17/19 18:59 06:59 18:59 Intake Total 400 1180 Balance 400 1180 Intake: Oral 400 1180 Other: Voiding Method Toilet Toilet # Voids 1 4 - Exam -GENERAL: The patient is alert and oriented x2-3, not in any acute distress. -HEENT: Pupils are round and equally reacting to light. EOMI. No scleral icterus. No conjunctival pallor. Normocephalic, atraumatic. No pharyngeal erythema. No thyromegaly. Poor oral hygiene with some teeth are lost CARDIOVASCULAR: S1 and S2 present. No murmurs, rubs, or gallops. PULMONARY: Chest is clear to auscultation, no wheezing or crackles. ABDOMEN: Soft, nontender, nondistended, normoactive bowel sounds. No palpable organomegaly. MUSCULOSKELETAL: No joint swelling or deformity. EXTREMITIES: No cyanosis, clubbing, or pedal edema. NEUROLOGICAL: Gross neurological examination did not reveal any focal deficits. SKIN: No rashes. no petechiae. - Labs CBC & Chem 7: 09/16/19 07:27 09/16/19 07:27 Assessment and Plan Assessment: Change in mental status, it looks patient is back to his baseline Acute kidney injury agitation on admission with risks to self staff Patient might need temporal guardianship old left basal ganglia lacunar infarct with old left parietal infarct Bilateral carotid stenosis Bilateral blindness Hyperlipidemia Chronic degenerative joint disease History of nicotine dependence Deep vein thrombosis prophylaxis Increased AST History of spinal stenosis history of legal blindness Anxiety/depression Gait dysfunction Full code Plan: This is a pleasant 74 years old male who presents with aggressive to staff and possible altered mental status. Continue with sitter. Follow-up psychiatric recommendation. As for sac follow-up. Start IV fluids for elevated creatinine. Continue with symptomatic treatment. Continue with pain management. body shop worker on the case for temporal guardianship which could not be obtained last week for follow-up on this coming week. Labs and medication were reviewed.. Continue same treatment. Continue with symptomatic treatment. Resume home medication. Monitor lytes and vitals. DVT and GI prophylaxis. Further recommendations of the clinical course of the patient DVT prophylaxis: Subcutaneous heparin GI Prophylaxis: Protonix Prognosis is guarded
[2019-09-17 09:39] LABS: Calcium 10.3 mg/dL (8.4-10.2); Potassium 4.5 mmol/L (3.5-5.1)
--- NOTE | 2019-09-17 17:21 | US ---
EXAMINATION TYPE: US renals and bladder DATE OF EXAM: 09/17/2019 COMPARISON: NONE CLINICAL HISTORY: sujata. SUJATA, exam done portable. EXAM MEASUREMENTS: Right Kidney: 8.9 x 4.1 x 4.0 cm Left Kidney: 8.9 x 4.4 x 4.2 cm Right Kidney: measures slightly small in size, no hydronephrosis or masses seen Left Kidney: measures slightly small in size, no hydronephrosis, 1.6cm cystic area superior pole Bladder: not fully distended . IMPRESSION: There is 1.5 cm cyst in the upper pole of the left kidney. No evidence of a solid renal mass. No hydr onephrosis. Urinary bladder unremarkable. No significant atrophy.
[2019-09-17] MEDS: traZODone HCL 50 MG TAB PO SCH (21:01)
[2019-09-17] MEDS: MELATONIN 3 MG TABLET PO SCH (21:01)
[2019-09-18] MEDS: HYDROcodone/APAP 10-325MG 1 EACH TAB PO PRN ×4 (00:46→23:53)
[2019-09-18] MEDS: SODIUM CHLORIDE 0.9% 1,000 ML IV SCH ×3 (02:33→23:19)
[2019-09-18 07:58] LABS: Potassium 4.8 mmol/L (3.5-5.1)
[2019-09-18 08:01] LABS: Basophils % (A) 1 %; Eosinophils # (A) 0.3 k/uL (0-0.7); Eosinophils % (A) 4 %; HCT 45.6 % (39.0-53.0); HGB 15.5 gm/dL (13.0-17.5); Lymphocytes # (A) 2.3 k/uL (1.0-4.8); Lymphocytes % (A) 33 %; MCHC 34.1 g/dL (31.0-37.0); MCV 96.8 fL (80.0-100.0); Mean Platelet Volume 6.3; Monocytes # (A) 0.5 k/uL (0-1.0); Monocytes % (A) 7 %; Neutrophils # (A) 3.7 k/uL (1.3-7.7); Neutrophils % (A) 53 %; Platelet Count 306 k/uL (150-450); RBC 4.71 m/uL (4.30-5.90); RDW 12.7 % (11.5-15.5)
[2019-09-18] MEDS: CLOTRIMAZOLE 1% CREAM 15 GM TUBE TOPICAL SCH ×2 (09:04→20:23)
[2019-09-18] MEDS: HEPARIN SODIUM,PORCINE 5,000 UNIT/ML 1 ML VIAL SQ SCH ×2 (09:04→20:23)
--- NOTE | 2019-09-18 09:11 | P.PN ---
Subjective This is a pleasant 74 years old male with past medical history of CVA/TIA, hearing disorder, hyperlipidemia, chronic low back pain, spinal stenosis, legally blind, ALLERGIC rhinitis, adjustment disorder, old left basal ganglia infarct and left parietal infarct, bilateral carotid artery stenosis. Patient presents with altered mental status, thought to be metabolic encephalopathy versus acute TIA however his mentation is improved. Patient was noticed to be aggressive to staff and there was risking for some himself to his been evaluated by psychiatric service patient was uncooperative and the psychiatrist recommended a second evaluation prior to discharge, currently patient has a sitter at bedside for safety. sawmill worker on the case for temporal guardianship Hemodynamically he is a stable. Labs are unremarkable and patient denies any other symptoms. He denies chest pain or dyspnea. No abdominal pain. No nausea vomiting. No change in urine or bowel habits. No fever 09/16/2019 Patient is awake and alert and lying In Bed, No New Complaint. Patient Denies Suicidal Ideation or Tendency to Hurt Himself or Others. He says he does not feel weak anymore. Vitals are stable. However his creatinine is elevated at 1.6 compared to 0.9-1.1 up on admission. We will start the patient on IV fluids and check bladder scan. Also will ask for psych follow-up. sawmill worker is working on outpatient temporal guardianship. 09/17/2019 Patient is awake, not in distress. No new complaint leg no chest pain or dyspnea. No bowel problem or eating difficulty. Patient remains calm with sitter at bedside. Discussed with patient this morning he is willing to cooperate with the psychiatrist to be called. Waiting for early evaluation by psychiatrist as well as social work instructor working on temporal guardianship 09/18/2019 Patient is awake and calm, no new complaints. No chest pain or dyspnea. He still hemodynamically stable. No abdominal pain. His blood pressure this morning was 124/71, heart rate 76 and saturating 99%. Patient is been afebrile. Renal ultrasound was unremarkable except for pain is improving gradually down t o 1. CBC is unremarkable. Bladder scan checked yesterday showing postvoid residual of 0. Continue with normal saline at 75 mg/h Objective - Vital Signs Vital signs: Vital Signs Temp 98.1 F 09/18/19 09:02 Pulse 76 09/18/19 09:02 Resp 17 09/18/19 09:02 BP 129/70 09/18/19 09:02 Pulse Ox 99 09/18/19 09:02 Intake & Output 09/17/19 09/18/19 09/18/19 18:59 06:59 18:59 Intake Total 300 Balance 300 Intake: Oral 300 Other: Voiding Method Toilet Toilet # Voids 4 # Bowel Movements 0 - Exam -GENERAL: The patient is alert and oriented x2-3, not in any acute distress. -HEENT: Pupils are round and equally reacting to light. EOMI. No scleral icterus. No conjunctival pallor. Normocephalic, atraumatic. No pharyngeal eryth yudy. No thyromegaly. Poor oral hygiene with some teeth are lost CARDIOVASCULAR: S1 and S2 present. No murmurs, rubs, or gallops. PULMONARY: Chest is clear to auscultation, no wheezing or crackles. ABDOMEN: Soft, nontender, nondistended, normoactive bowel sounds. No palpable organomegaly. MUSCULOSKELETAL: No joint swelling or deformity. EXTREMITIES: No cyanosis, clubbing, or pedal edema. NEUROLOGICAL: Gross neurological examination did not reveal any focal deficits. SKIN: No rashes. no petechiae. - Labs CBC & Chem 7: 09/18/19 06:54 09/18/19 06:54 Labs: Abnormal Lab Results - Last 24 Hours (Table) 09/17/19 09/18/19 Range/Units 08:59 06:54 BUN 24 H (9-20) mg/dL Creatinine 1.60 H 1.49 H (0.66-1.25) mg/dL Glucose 151 H (74-99) mg/dL Calcium 10.3 H (8.4-10.2) mg/dL Assessment and Plan Assessment: Change in mental status, it looks patient is back to his baseline Acute kidney injury agitation on admission with risks to self staff Patient might need temporal guardianship old left basal ganglia lacunar infarct with old left parietal infarct Bilateral carotid stenosis Bilateral blindness Hyperlipidemia Chronic degenerative joint disease History of nicotine dependence Deep vein thrombosis prophylaxis Increased AST History of spinal stenosis history of legal blindness Anxiety/depression Gait dysfunction Full code Plan: This is a pleasant 74 years old male who presents with aggressive to staff and possible altered mental status. Continue with sitter. Follow-up psychiatric recommendation. Call psych follow-up Continue with normal saline and follow-up creatinine level. Continue with symptomatic treatment. Continue with pain management. sawmill worker on the case for temporal guardianship which could not be obtained last week for follow-up on this coming week. Labs and medication were reviewed.. Continue same treatment. Continue with symptomatic treatment. Resume home medication. Monitor lytes and vitals. DVT and GI prophylaxis. Further recommendations of the clinical course of the patient DVT prophylaxis: Subcutaneous heparin GI Prophylaxis: Protonix Prognosis is guarded Discussed with staff
[2019-09-18] MEDS: PANTOPRAZOLE 40 MG TABLET PO SCH ×2 (11:49→12:10)
[2019-09-18] MEDS: ASPIRIN 81 MG PO SCH ×2 (11:49→12:10)
[2019-09-18] MEDS: TAMSULOSIN 0.4 MG CAP.ER.24H PO SCH ×2 (11:49→12:10)
[2019-09-18] MEDS: MELATONIN 3 MG TABLET PO SCH (21:03)
[2019-09-18] MEDS: traZODone HCL 50 MG TAB PO SCH (21:03)
[2019-09-19] MEDS: HYDROcodone/APAP 10-325MG 1 EACH TAB PO PRN ×3 (06:31→18:52)
[2019-09-19 07:59] LABS: Calcium 9.9 mg/dL (8.4-10.2); Potassium 4.1 mmol/L (3.5-5.1)
[2019-09-19] MEDS: ASPIRIN 81 MG PO SCH (09:37)
[2019-09-19] MEDS: TAMSULOSIN 0.4 MG CAP.ER.24H PO SCH (09:38)
[2019-09-19] MEDS: PANTOPRAZOLE 40 MG TABLET PO SCH (09:38)
[2019-09-19] MEDS: HEPARIN SODIUM,PORCINE 5,000 UNIT/ML 1 ML VIAL SQ SCH ×2 (09:40→19:21)
[2019-09-19] MEDS: CLOTRIMAZOLE 1% CREAM 15 GM TUBE TOPICAL SCH ×2 (10:22→22:14)
--- NOTE | 2019-09-19 12:59 | P.PN ---
Subjective Progress Note Date: 09/19/19 Principal diagnosis: This is a 73-year-old male who was recently admitted with change in mental status and is being closely monitored. Patient continues to be confused and belligerent. When talking with the patient today patient was pleasant and calm as he was eating ice cream and per nursing staff that is the only thing that keeps him calm. Neurology and psychiatry were consulted. Neurology has signed off at this time and psychiatry is recommending gathering further information from visiting [employer] as well as his daughter Conchis who may know more information about his medical history. Case management and social media specialist following. Patient may need possible placement and guardianship as he currently lives at home alone and has visiting nurses come out 2 hours per week to bring him groceries as he will not allow them to enter the home. Currently patient denies any chest pain, shortness of breath, or palpitations. Patient is afebrile. Patient denies any nausea or vomiting and is tolerating diet. Patient does have a sitter at the bedside. Will continue to monitor closely. Guarded prognosis. 09/12/2019 Patient is sitting up in bed in no acute distress eating ice cream. Patient is belligerent upon entering the room and refusing to speak with me unless I bring more ice cream. Unable to obtain a review of systems as he keeps cursing at editorial writer with each question. Sitter at the bedside. Patient was petitioned today by social work as he is refusing any type of placement but his current apartment. Adult protective services met with social work and patient this am and was witness to his refusal. A court hearing is scheduled this tuesday for possible appointment of temporary guardian as the patient is not appropriate to care for himself and to make his own decisions. Overnight patient pulled his indwelling catheter out and was replaced. No blood or trauma noted on exam today. Patient is currently sitting up in bed in only a diaper and refusing to wear his gown. Will continue to monitor closely. 09/13/2019 Patient is currently lying in bed sleeping with a sitter at the bedside. Per nursing staff no acute overnight issues and patient is calm and cooperative as long as he is receiving "polk mist pop and ice cream". Patient is awaiting a court hearing tomorrow in an attempt to obtain temporary guardianship so placement can be established. Case management and social work are following closely. Patient will continue to work with PT/OT for strength and mobility. Labs done yesterday and within normal limits. Will continue to monitor closely. 09/14/2019 Patient is sitting up in bed in no acute distress. No Acute overnight issues. Social work attended a court hearing today and was not granted temporary guardianship for placement as the guardian had not personally interviewed the patient. A scheduled hearing is rescheduled for next week Tuesday and will attempt for placement at that time. Patient is being followed by psychiatry as he allegedly made previous threats of wanting to harm himself. Patient denies suicidal ideation at this time. Patient becomes agitated and aggressive at staff at times. Will continue to monitor closely. 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 Patient presents with altered mental status, thought to be metabolic encephalopathy versus acute TIA however his mentation is improved. Patient was noticed to be aggressive to staff and there was risking for some himself to his been evaluated by psychiatric service patient was uncooperative and the psychiatrist recommended a second evaluation prior to discharge, currently patient has a sitter at bedside for safety. grain elevator worker on the case for temporal [facility] Hemodynamically he is a stable. Labs are unremarkable and patient denies any other symptoms. He denies chest pain or dyspnea. No abdominal pain. No nausea vomiting. No change in urine or bowel habits. No fever 09/16/2019 Patient is awake and alert and lying In Bed, No New Complaint. Patient Denies Suicidal Ideation or Tendency to Hurt Himself or Others. He says he does not feel weak anymore. Vitals are stable. However his creatinine is elevated at 1.6 compared to 0.9-1.1 up on admission. We will start the patient on IV fluids and check bladder scan. Also will ask for psych follow-up. grain elevator worker [facility] 09/17/2019 Patient is awake, not in distress. No new complaint leg no chest pain or dyspnea. No bowel problem or eating difficulty. Patient remains calm with sitter at bedside. Discussed with patient this morning he is willing to cooperate with the psychiatrist to be called. Waiting for early evaluation by psychiatrist as well as social media specialist working on temporal guardianship 09/18/2019 Patient is awake and calm, no new complaints. No chest pain or dyspnea. He still hemodynamically stable. No abdominal pain. His blood pressure this morning was 124/71, heart rate 76 and saturating 99%. Patient is been afebrile. Renal ultrasound was unremarkable except for pain is improving gradually down to 1. CBC is unremarkable. Bladder scan checked yesterday showing postvoid residual of 0. Continue with normal saline at 75 mg/h 09/19/2019 Patient is sitting up at the site of the bed in no acute distress having conve rsation with the patient sitter. No acute overnight issues. Patient denies any chest pain, shortness of breath, or palpitations. Patient remains afebrile. Patient denies any nausea or vomiting and is tolerating diet. A court hearing is scheduled for this Tuesday to obtain temporary guardianship to assist patient with an ECF or rehab facility. Willl continue to monitor closely. Objective - Vital Signs Vital signs: Vital Signs Temp 97.9 F 09/19/19 12:35 Pulse 89 09/19/19 12:35 Resp 17 09/19/19 12:35 BP 122/66 09/19/19 12:35 Pulse Ox 96 09/19/19 12:35 Intake & Output 09/18/19 09/19/19 09/19/19 18:59 06:59 18:59 Intake Total 240 Balance 240 Weight 63.503 kg Intake: Oral 240 Other: Voiding Method Toilet Toilet # Voids 3 3 - Exam Gen: This is a 74-year-old male lying in bed sleeping but arousable with a patient sitter at the bedside in no acute distress. Temp is 97.9 F, pulse is 89, respirations are 17, blood pressure is 122/66, oxygen saturation is 96% on room air. HEENT: Head is atraumatic, normocephalic. Patient is legally blind. Sclerae is anicteric. Poor oral hygiene with multiple teeth missing noted NECK: Supple. No JVD. No lymphadenopathy. No thyromegaly. LUNGS: Diminished breath sounds at the bases with a few scattered rhonchi noted. No intercostal retractions. HEART: Cardio S1 and S2 are muffled ABDOMEN: Soft. Bowel sounds are present. No masses. No tenderness. EXTREMITIES: No pedal edema. No calf tenderness. NEUROLOGICAL: Patient is asleep but arousable, alert and oriented x1-2. - Labs CBC & Chem 7: 09/18/19 06:54 09/19/19 07:23 Labs: Abnormal Lab Results - Last 24 Hours (Table) 09/19/19 Range/Units 07:23 Creatinine 1.35 H (0.66-1.25) mg/dL Glucose 159 H (74-99) mg/dL Assessment and Plan Assessment: Change in mental status, possible acute on chronic metabolic encephalopathy, possible acute transient ischemic attack old left basal ganglia lacunar infarct with old left parietal infarct Acute kidney injury Agitation on admission with the risks to self and staff Bilateral carotid stenosis Bilateral blindness Hyperlipidemia Chronic degenerative joint disease History of nicotine dependence Deep vein thrombosis prophylaxis Increased AST History of spinal stenosis history of legal blindness Anxiety/depression Gait dysfunction Full code Recommendations and discussion: Recommend to continue current medications, management, and symptomatic jaime tment. Will continue to monitor closely. Case management and social work are following. Court hearing is scheduled for Tuesday to obtain temporary guardianship for placement. PT/OT following. Prognosis is extremely guarded due to his multiple complex medical issues. Further recommendations to follow.
--- NOTE | 2019-09-19 15:38 | P.CN ---
Psychiatric Consult - . Consult date: 09/19/19 Consult:: IDENTIFYING DATA: The patient is a 74-year-old male admitted to medicine service for evaluation of generalized weakness and fatigue. He has been on suicide precautions with a one-to-one sitter since admission to the unit because he expresses suicidal thoughts. The hospitalist reconsult psychiatry to give an opinion with the patient represents an acute suicidal risk and requires one-to-one supervision. HISTORY OF PRESENT ILLNESS: I reviewed the medical record and attempted to interview the patient. He was very difficult to interview and he cooperatived was minimally with the interview. He answered most questions with the statement "I don't know." However when I specifically asked about suicidal thoughts or plans he responded to the affirmative. He alleges that he wants to . When I asked about whether he has thought of how he might end his life he responded "shoot myself with a gun." I could not engage in a discussion about his concerns or his distress. My impression from reviewing the chart is that he is angry with the recommendation that he can no longer live independently and requires placement in a supervised setting. I tried to engage him in discussion about his living situations and r ecommendations of the treatment team. As during most of the interview. He refused to discuss the topic. He disagreed with the recommendation that he cannot return to his apartment and alleged that he could "take care of myself." He is obviously angry but would not engage in discussion about his mood thoughts or feelings. PAST PSYCHIATRIC HISTORY: He would not answer questions about whether he had met with a mental health professional in the past. According to the initial history and physical exam he has a history of anxiety and depression. PAST MEDICAL HISTORY: According to the medical record he has a history of a CVA, TIA, hyperlipidemia. ALLERGIES: Known drug ALLERGIES. SUBSTANCE USE HISTORY: He would not answer questions about use of alcohol or history of substance use FAMILY PSYCHIATRIC/SUBSTANCE USE HISTORY: Similarly, he would not talk about his family history. SOCIAL HISTORY: He alleged that he is living in his current apartment for 19 years. He has 2 daughters with whom he has little contact. He was angry because daughters do not call him and alleged that he could not call him because he "don't know their number." MENTAL STATUS EXAM: He presented as a thin pale and frail appearing He had a flat facial expression. elderly male who is laying comfortably in bed. He did not make eye contact time does not appear to attend to the interview. He was alert and oriented to person, month but alleged that he did not know the year. He was so oppositional that he did not make an attempt to guess the year. He had marked psychomotor slowing but no abnormal movements. I did not evaluate his gait or station. His speech was not spontaneous. His answers to questions were terse. He was angry but not agitated or inappropriate. He expressed suicidal ideation and wishes. He denied homicidal ideation. He feels helpless but did not express clear thoughts of worthlessness. He did not express clear ideas reference, paranoid ideation, magical ideation or delusional thoughts. His thinking was concrete. He had such poverty of speech that I was unable to fully evaluate whether his associations were coherent and logical. He did not express neologisms or blocking. He did not appear to be responding to internal stimuli. I attempted to administer the [facility] Orientation Memory and Concentration test. He would not cooperate with the interview. IMPRESSIONS: He is an elderly man admitted to medicine service for evaluation of generalized weakness and fatigue. During the course of his medical evaluation the treatment team determined that he is unable to care for himself independently. He is angry and opposed to the recommendation for placement in a supervised environment. He has expressed suicidal thoughts. During our interv iew he expressed suicidal thoughts as well as a vague plan that he would not be able to implement what he was in the hospital. I am unable to determine the seriousness of his intent but I suspect the suicidal thoughts and utterances are expression of his anger and frustration with the recommendations of the treatment team. He has many risk factors including age, race, chronic medical illnesses, probable cognitive impairment as well as estrangement from his family. PLAN: I recommended to continue with the one-to-one supervision and reevaluate the need as the guardianship process unfolds. 09/19/19 09:52 09/19/19 15:35
[2019-09-19] MEDS: SODIUM CHLORIDE 0.9% 1,000 ML IV SCH (17:48)
[2019-09-19] MEDS: MELATONIN 3 MG TABLET PO SCH (20:32)
[2019-09-19] MEDS: traZODone HCL 50 MG TAB PO SCH (20:32)
[2019-09-20] MEDS: HYDROcodone/APAP 10-325MG 1 EACH TAB PO PRN ×4 (05:27→23:22)
[2019-09-20] MEDS: SODIUM CHLORIDE 0.9% 1,000 ML IV SCH ×2 (08:55→19:39)
[2019-09-20] MEDS: HEPARIN SODIUM,PORCINE 5,000 UNIT/ML 1 ML VIAL SQ SCH ×2 (08:55→21:18)
[2019-09-20] MEDS: PANTOPRAZOLE 40 MG TABLET PO SCH (09:02)
[2019-09-20] MEDS: CLOTRIMAZOLE 1% CREAM 15 GM TUBE TOPICAL SCH ×2 (09:02→21:43)
[2019-09-20] MEDS: TAMSULOSIN 0.4 MG CAP.ER.24H PO SCH (09:02)
[2019-09-20] MEDS: ASPIRIN 81 MG PO SCH (09:02)
--- NOTE | 2019-09-20 14:45 | P.PN ---
Subjective Progress Note Date: 09/20/19 Principal diagnosis: This is a 73-year-old male who was recently admitted with change in mental status and is being closely monitored. Patient continues to be confused and belligerent. When talking with the patient today patient was pleasant and calm as he was eating ice cream and per nursing staff that is the only thing that keeps him calm. Neurology and psychiatry were consulted. Neurology has signed off at this time and psychiatry is recommending gathering further information from [facility] [employer] as well as his daughter Conchis who may know more information about his medical history. Case management and forensic social worker following. Patient may need possible placement and guardianship as he currently lives at home alone and has visiting nurses come out 2 hours per week to bring him groceries as he will not allow them to enter the home. Currently patient denies any chest pain, shortness of breath, or palpitations. Patient is afebrile. Patient denies any nausea or vomiting and is tolerating diet. Patient does have a sitter at the bedside. Will continue to monitor closely. Guarded prognosis. 09/12/2019 Patient is sitting up in bed in no acute distress eating ice cream. Patient is belligerent upon entering the room and refusing to speak with me unless I bring more ice cream. Unable to obtain a review of systems as he keeps cursing at medical writer with each question. Sitter at the bedside. Patient was petitioned today by social work as he is refusing any type of placement but his current apartment. Adult protective services met with social work and patient this am and was witness to his refusal. A court hearing is scheduled this tuesday for possible appointment of temporary guardian as the patient is not appropriate to care for himself and to make his own decisions. Overnight patient pulled his indwelling catheter out and was replaced. No blood or trauma noted on exam today. Patient is currently sitting up in bed in only a diaper and refusing to wear his gown. Will continue to monitor closely. 09/13/2019 Patient is currently lying in bed sleeping with a sitter at the bedside. Per nursing staff no acute overnight issues and patient is calm and cooperative as long as he is receiving "polk mist pop and ice cream". Patient is awaiting a court hearing tomorrow in an attempt to obtain temporary guardianship so placement can be established. Case management and social work are following closely. Patient will continue to work with PT/OT for strength and mobility. Labs done yesterday and within normal limits. Will continue to monitor closely. 09/14/2019 Patient is sitting up in bed in no acute distress. No Acute overnight issues. Social work attended a court hearing today and was not granted temporary guardianship for placement as the guardian had not personally interviewed the patient. A scheduled hearing is rescheduled for next week Tuesday and will attempt for placement at that time. Patient is being followed by psychiatry as he allegedly made previous threats of wanting to harm himself. Patient denies suicidal ideation at this time. Patient becomes agitated and aggressive at staff at times. Will continue to monitor closely. 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 Patient presents with altered mental status, thought to be metabolic encephalopathy versus acute TIA however his mentation is improved. Patient was noticed to be aggressive to staff and there was risking for some himself to his been evaluated by psychiatric service patient was uncooperative and the psychiatrist recommended a second evaluation prior to discharge, currently patient has a sitter at bedside for safety. packing floor worker on the case for [facility] Hemodynamically he is a stable. Labs are unremarkable and patient denies any other symptoms. He denies chest pain or dyspnea. No abdominal pain. No nausea vomiting. No change in urine or bowel habits. No fever 09/16/2019 Patient is awake and alert and lying In Bed, No New Complaint. Patient Denies Suicidal Ideation or Tendency to Hurt Himself or Others. He says he does not feel weak anymore. Vitals are stable. However his creatinine is elevated at 1.6 compared to 0.9-1.1 up on admission. We will start the patient on IV fluids and check bladder scan. Also will ask for psych follow-up. packing floor [facility] 09/17/2019 Patient is awake, not in distress. No new complaint leg no chest pain or dyspnea. No bowel problem or eating difficulty. Patient remains calm with sitter at bedside. Discussed with patient this morning he is willing to cooperate with the psychiatrist to be called. Waiting for early evaluation by psychiatrist as well as forensic social worker working on temporal guardianship 09/18/2019 Patient is awake and calm, no new complaints. No chest pain or dyspnea. He still hemodynamically stable. No abdominal pain. His blood pressure this morning was 124/71, heart rate 76 and saturating 99%. Patient is been afebrile. Renal ultrasound was unremarkable except for pain is improving gradually down to 1. CBC is unremarkable. Bladder scan checked yesterday showing postvoid residual of 0. Continue with normal saline at 75 mg/h 09/19/2019 Patient is sitting up at the site of the bed in no acute distress having conve rsation with the patient sitter. No acute overnight issues. Patient denies any chest pain, shortness of breath, or palpitations. Patient remains afebrile. Patient denies any nausea or vomiting and is tolerating diet. A court hearing is scheduled for this Tuesday to obtain temporary guardianship to assist patient with an ECF or rehab facility. Willl continue to monitor closely. 09/20/2019 Patient is lying in bed sleeping but easily arousable. Patient sitter is at the bedside. No acute overnight issues. Patient is refusing to speak with medical writer today, unable to obtain a review of systems. Spoke with the dietitian today as she is concerned about his poor oral intake and stating that over the last 5 days he is minimally eating and not meeting his nutritional needs. Dietitian made suggestions of a possible feeding tube and will hold off on this at this time. Patient is eating Magic cups along with chocolate ice cream multiple times during the day. Will continue to monitor intake and output closely. There is a court hearing scheduled for 8:30 in the morning to obtain temporary guardianship in case management and social work had been working on possible placement for discharge. Will continue to monitor closely. Objective - Vital Signs Vital signs: Vital Signs Temp 97.7 F 09/20/19 05:20 Pulse 83 09/20/19 05:20 Resp 18 09/20/19 05:20 BP 165/79 09/20/19 05:20 Pulse Ox 96 09/20/19 05:20 Intake & Output 09/19/19 09/20/19 09/20/19 18:59 06:59 18:59 Intake Total 360 960 Output Total 200 Balance 160 960 Weight 63.503 kg Intake: Oral 360 960 Output: Urine 200 Other: Voiding Method Toilet Toilet Toilet # Voids 4 7 # Bowel Movements 0 0 - Exam Gen: This is a 74-year-old male lying in bed sleeping but arousable with a patient sitter at the bedside in no acute distress. Temp is 97.7 F, pulse is 89, respirations are 16, blood pressure is 98/56, oxygen saturation is 98% on room air. HEENT: Head is atraumatic, normocephalic. Patient is legally blind. Sclerae is anicteric. Poor oral hygiene with multiple teeth missing noted NECK: Supple. No JVD. No lymphadenopathy. No thyromegaly. LUNGS: Diminished breath sounds at the bases with a few scattered rhonchi noted. No intercostal retractions. HEART: Cardio S1 and S2 are muffled ABDOMEN: Soft. Bowel sounds are present. No masses. No tenderness. EXTREMITIES: No pedal edema. No calf tenderness. NEUROLOGICAL: Patient is asleep but arousable, alert and oriented x1-2. - Labs CBC & Chem 7: 09/18/19 06:54 09/19/19 07:23 Assessment and Plan Assessment: Change in mental status, possible acute on chronic metabolic encephalopathy, possible acute transient ischemic attack old left basal ganglia lacunar infarct with old left parietal infarct Acute kidney injury Agitation on admission with the risks to self and staff Bilateral carotid stenosis Bilateral blindness Hyperlipidemia Chronic degenerative joint disease History of nicotine dependence Deep vein thrombosis prophylaxis Increased AST History of spinal stenosis history of legal blindness Anxiety/depression Gait dysfunction Full code Recommendations and discussion: Recommend to continue current medications, management, and symptomatic treatment. Will continue to monitor closely. Case management and social work are following. Court hearing is scheduled for tomorrow morning to obtain temporary guardianship for placement. PT/OT following. Prognosis is extremely guarded due to his multiple complex medical issues. Further recommendations to follow.
[2019-09-20] MEDS: traZODone HCL 50 MG TAB PO SCH (21:21)
[2019-09-20] MEDS: MELATONIN 3 MG TABLET PO SCH (21:22)
[2019-09-21] MEDS: HYDROcodone/APAP 10-325MG 1 EACH TAB PO PRN ×3 (05:18→21:37)
[2019-09-21] MEDS: ASPIRIN 81 MG PO SCH (09:46)
[2019-09-21] MEDS: PANTOPRAZOLE 40 MG TABLET PO SCH (09:46)
[2019-09-21] MEDS: HEPARIN SODIUM,PORCINE 5,000 UNIT/ML 1 ML VIAL SQ SCH ×2 (09:46→21:42)
[2019-09-21] MEDS: TAMSULOSIN 0.4 MG CAP.ER.24H PO SCH (09:46)
[2019-09-21] MEDS: CLOTRIMAZOLE 1% CREAM 15 GM TUBE TOPICAL SCH ×2 (09:46→21:42)
[2019-09-21] MEDS: SODIUM CHLORIDE 0.9% 1,000 ML IV SCH ×2 (11:32→21:41)
--- NOTE | 2019-09-21 11:51 | P.CON ---
Consult Note - . Consult date: 09/21/19 Assessment/Plan:: Clinical Problems: Problems related to living alone, rule out major neurocognitive disorder Interim history: I reviewed the medical record, spoke to his assigned nurse and interviewed the patient. He remains on one-to-one due to past suicidal statements. Nursing staff reported that his probate hearing for guardianship is scheduled for today. The recommendations remained placement in a supervised residence because he is unable to live independently even with supportive services. He was more open and engaging than in our prior encounter. He was extremely angry over the probate hearing and the recommendation that he could not return to his apartment. He perseverated on this issue. He repeatedly stated that he wants to return to his apartment, he has lived in his apartment for 19 years and he is fully able to manage his own affairs. I explained that I was asked to speak with him because of his suicidal statement. He replied that he was never suicidal. He made the statements because he was angry. He replied that he has not had suicidal thoughts and has no intent or plan. In response to questions about his suicidality and suicide statements he replied "I just want to go home." Mental status exam: He presented as a thin and frail and pale appearing elderly male who is angry. He became more angry and restless as we discuss the reason for his hospitalization. At no time during interview that he appeared agg ressive. His speech was spontaneous and consistent with his mood. At times he was loud but not inappropriate. His affect was angry. He denied suicidal ideation, wishes, suicidal intent or plan. He did not express clear ideas reference or delusional thoughts. His thinking was concrete but his associations appeared logical. He does not appear to be responding to internal stimuli Assessment: He is angry over the recommendations of the treatment team that he cannot return to his apartment and that the hospital is applying for guardianship. Plan: She does not required one-to-one supervision. He does not require transfer to the psychiatric unit.
--- NOTE | 2019-09-21 14:21 | P.PN ---
Subjective Progress Note Date: 09/21/19 Principal diagnosis: This is a 73-year-old male who was recently admitted with change in mental status and is being closely monitored. Patient continues to be confused and belligerent. When talking with the patient today patient was pleasant and calm as he was eating ice cream and per nursing staff that is the only thing that keeps him calm. Neurology and psychiatry were consulted. Neurology has signed off at this time and psychiatry is recommending gathering further information from [employer] as well as his daughter Conchis who may know more information about his medical history. Case management and health care social worker following. Patient may need possible placement and guardianship as he currently lives at home alone and has visiting nurses come out 2 hours per week to bring him groceries as he will not allow them to enter the home. Currently patient denies any chest pain, shortness of breath, or palpitations. Patient is afebrile. Patient denies any nausea or vomiting and is tolerating diet. Patient does have a sitter at the bedside. Will continue to monitor closely. Guarded prognosis. 09/12/2019 Patient is sitting up in bed in no acute distress eating ice cream. Patient is belligerent upon entering the room and refusing to speak with me unless I bring more ice cream. Unable to obtain a review of systems as he keeps cursing at senior mortgage underwriter with each question. Sitter at the bedside. Patient was petitioned today by social work as he is refusing any type of placement but his current apartment. Adult protective services met with social work and patient this am and was witness to his refusal. A court hearing is scheduled this tuesday for possible appointment of temporary guardian as the patient is not appropriate to care for himself and to make his own decisions. Overnight patient pulled his indwelling catheter out and was replaced. No blood or trauma noted on exam today. Patient is currently sitting up in bed in only a diaper and refusing to wear his gown. Will continue to monitor closely. 09/13/2019 Patient is currently lying in bed sleeping with a sitter at the bedside. Per nursing staff no acute overnight issues and patient is calm and cooperative as long as he is receiving "polk mist pop and ice cream". Patient is awaiting a court hearing tomorrow in an attempt to obtain temporary guardianship so placement can be established. Case management and social work are following closely. Patient will continue to work with PT/OT for strength and mobility. Labs done yesterday and within normal limits. Will continue to monitor closely. 09/14/2019 Patient is sitting up in bed in no acute distress. No Acute overnight issues. Social work attended a court hearing today and was not granted temporary guardianship for placement as the guardian had not personally interviewed the patient. A scheduled hearing is rescheduled for next week Tuesday and will attempt for placement at that time. Patient is being followed by psychiatry as he allegedly made previous threats of wanting to harm himself. Patient denies suicidal ideation at this time. Patient becomes agitated and aggressive at staff at times. Will continue to monitor closely. 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 Patient presents with altered mental status, thought to be metabolic encephalopathy versus acute TIA however his mentation is improved. Patient was noticed to be aggressive to staff and there was risking for some himself to his been evaluated by psychiatric service patient was uncooperative and the psychiatrist recommended a second evaluation prior to discharge, currently patient has a sitter at bedside for safety. clearing tub worker on the case for temporal [facility] Hemodynamically he is a stable. Labs are unremarkable and patient denies any other symptoms. He denies chest pain or dyspnea. No abdominal pain. No nausea vomiting. No change in urine or bowel habits. No fever 09/16/2019 Patient is awake and alert and lying In Bed, No New Complaint. Patient Denies Suicidal Ideation or Tendency to Hurt Himself or Others. He says he does not feel weak anymore. Vitals are stable. However his creatinine is elevated at 1.6 compared to 0.9-1.1 up on admission. We will start the patient on IV fluids and check bladder scan. Also will ask for psych follow-up. clearing tub [facility] 09/17/2019 Patient is awake, not in distress. No new complaint leg no chest pain or dyspnea. No bowel problem or eating difficulty. Patient remains calm with sitter at bedside. Discussed with patient this morning he is willing to cooperate with the psychiatrist to be called. Waiting for early evaluation by psychiatrist as well as health care social worker working on temporal guardianship 09/18/2019 Patient is awake and calm, no new complaints. No chest pain or dyspnea. He still hemodynamically stable. No abdominal pain. His blood pressure this morning was 124/71, heart rate 76 and saturating 99%. Patient is been afebrile. Renal ultrasound was unremarkable except for pain is improving gradually down to 1. CBC is unremarkable. Bladder scan checked yesterday showing postvoid residual of 0. Continue with normal saline at 75 mg/h 09/19/2019 Patient is sitting up at the site of the bed in no acute distress having conve rsation with the patient sitter. No acute overnight issues. Patient denies any chest pain, shortness of breath, or palpitations. Patient remains afebrile. Patient denies any nausea or vomiting and is tolerating diet. A court hearing is scheduled for this Tuesday to obtain temporary guardianship to assist patient with an ECF or rehab facility. Willl continue to monitor closely. 09/20/2019 Patient is lying in bed sleeping but easily arousable. Patient sitter is at the bedside. No acute overnight issues. Patient is refusing to speak with senior mortgage underwriter today, unable to obtain a review of systems. Spoke with the dietitian today as she is concerned about his poor oral intake and stating that over the last 5 days he is minimally eating and not meeting his nutritional needs. Dietitian made suggestions of a possible feeding tube and will hold off on this at this time. Patient is eating Magic cups along with chocolate ice cream multiple times during the day. Will continue to monitor intake and output closely. There is a court hearing scheduled for 8:30 in the morning to obtain temporary guardianship in case management and social work had been working on possible placement for discharge. Will continue to monitor closely. 09/21/2019 Patient is sitting up at the side of the bed in no acute distress. No acute overnight issues. Social work attended a court hearing today and temporary guardianship was obtained. Patient will be seen by court-appointed guardian either today or Tuesday and social work will continue to work on obtaining an accepting facility. Patient was seen by psychiatry today and is not recommending inpatient psychiatric facility and has cleared the patient on a one-on-one sitter at this time. Will continue to monitor closely. Guarded prognosis. Objective - Vital Signs Vital signs: Vital Signs Temp 98 F 09/21/19 13:41 Pulse 72 09/21/19 13:41 Resp 20 09/21/19 13:41 BP 116/67 09/21/19 13:41 Pulse Ox 95 09/21/19 13:41 Intake & Output 09/20/19 09/21/19 09/21/19 18:59 06:59 18:59 Intake Total 720 Balance 720 Weight 63.503 kg Intake: Oral 720 Other: Voiding Method Toilet Toilet Toilet # Voids 5 4 - Exam Gen: This is a 74-year-old male sitting at the side of the bed in no acute d istress. We'll signs are stable. Temp is 98 F, pulse is 72, respirations are 20, blood pressure is 116/67, oxygen saturation is 95% on room air. HEENT: Head is atraumatic, normocephalic. Patient is legally blind. Sclerae is anicteric. Poor oral hygiene with multiple teeth missing noted NECK: Supple. No JVD. No lymphadenopathy. No thyromegaly. LUNGS: Diminished breath sounds at the bases with a few scattered rhonchi noted. No intercostal retractions. HEART: Cardio S1 and S2 are muffled ABDOMEN: Soft. Bowel sounds are present. No masses. No tenderness. EXTREMITIES: No pedal edema. No calf tenderness. NEUROLOGICAL: Patient is asleep but arousable, alert and oriented x1-2. - Labs CBC & Chem 7: 09/18/19 06:54 09/19/19 07:23 Assessment and Plan Assessment: Change in mental status, possible acute on chronic metabolic encephalopathy, possible acute transient ischemic attack old left basal ganglia lacunar infarct with old left parietal infarct Acute kidney injury Agitation on admission with the risks to self and staff Bilateral carotid stenosis Bilateral blindness Hyperlipidemia Chronic degenerative joint disease History of nicotine dependence Deep vein thrombosis prophylaxis Increased AST History of spinal stenosis history of legal blindness Anxiety/depression Gait dysfunction Full code Recommendations and discussion: Recommend to continue current medications, management, and symptomatic nataliya atment. Sitter was discontinued and psych has cleared the patient at this time. Will continue to monitor closely. Case management and social work are following. Court hearing was today and SW obtained temporary guardianship. Awaiting an accepting facility for placement. PT/OT following. Prognosis is extremely guarded due to his multiple complex medical issues. Further recommendations to follow.
[2019-09-21] MEDS: traZODone HCL 50 MG TAB PO SCH (21:37)
[2019-09-21] MEDS: MELATONIN 3 MG TABLET PO SCH (21:38)
[2019-09-22] MEDS: HYDROcodone/APAP 10-325MG 1 EACH TAB PO PRN ×3 (04:59→19:10)
[2019-09-22] MEDS: CLOTRIMAZOLE 1% CREAM 15 GM TUBE TOPICAL SCH ×2 (08:29→20:49)
[2019-09-22] MEDS: HEPARIN SODIUM,PORCINE 5,000 UNIT/ML 1 ML VIAL SQ SCH ×2 (08:30→20:43)
[2019-09-22] MEDS: TAMSULOSIN 0.4 MG CAP.ER.24H PO SCH (08:47)
[2019-09-22] MEDS: PANTOPRAZOLE 40 MG TABLET PO SCH (08:48)
[2019-09-22] MEDS: ASPIRIN 81 MG PO SCH (08:48)
[2019-09-22] MEDS: SODIUM CHLORIDE 0.9% 1,000 ML IV SCH (14:40)
[2019-09-22] MEDS: traZODone HCL 50 MG TAB PO SCH (20:49)
[2019-09-22] MEDS: MELATONIN 3 MG TABLET PO SCH (20:49)
--- NOTE | 2019-09-23 00:01 | P.PN ---
Subjective Progress Note Date: 09/22/19 This is a 73-year-old male who was recently admitted with change in mental status and is being closely monitored. Patient continues to be confused and belligerent. When talking with the patient today patient was pleasant and calm as he was eating ice cream and per nursing staff that is the only thing that keeps him calm. Neurology and psychiatry were consulted. Neurology has signed off at this time and psychiatry is recommending gathering further information from [employer] as well as his daughter Conchis who may know more information about his medical history. Case management and group social worker following. Patient may need possible placement and guardianship as he currently lives at home alone and has visiting nurses come out 2 hours per week to bring him groceries as he will not allow them to enter the home. Currently patient denies any chest pain, shortness of breath, or palpitations. Patient is afebrile. Patient denies any nausea or vomiting and is tolerating diet. Patient does have a sitter at the bedside. Will continue to monitor closely. Guarded prognosis. 09/12/2019 Patient is sitting up in bed in no acute distress eating ice cream. Patient is belligerent upon entering the room and refusing to speak with me unless I bring more ice cream. Unable to obtain a review of systems as he keeps cursing at assembly instructions writer with each question. Sitter at the bedside. Patient was petitioned today by social work as he is refusing any type of placement but his current apart ment. Adult protective services met with social work and patient this am and was witness to his refusal. A court hearing is scheduled this tuesday for possible appointment of temporary guardian as the patient is not appropriate to care for himself and to make his own decisions. Overnight patient pulled his indwelling catheter out and was replaced. No blood or trauma noted on exam today. Patient is currently sitting up in bed in only a diaper and refusing to wear his gown. Will continue to monitor closely. 09/13/2019 Patient is currently lying in bed sleeping with a sitter at the bedside. Per nursing staff no acute overnight issues and patient is calm and cooperative as long as he is receiving "polk mist pop and ice cream". Patient is awaiting a court hearing tomorrow in an attempt to obtain temporary guardianship so placement can be established. Case management and social work are following closely. Patient will continue to work with PT/OT for strength and mobility. Labs done yesterday and within normal limits. Will continue to monitor closely. 09/14/2019 Patient is sitting up in bed in no acute distress. No Acute overnight issues. Social work attended a court hearing today and was not granted temporary guardianship for placement as the guardian had not personally interviewed the patient. A scheduled hearing is rescheduled for next week Tuesday and will attempt for placement at that time. Patient is being followed by psychiatry as he allegedly made previous threats of wanting to harm himself. Patient denies suicidal ideation at this time. Patient becomes agitated and aggressive at staff at times. Will continue to monitor closely. 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 Patient presents with altered mental status, thought to be metabolic encephalopathy versus acute TIA however his mentation is improved. Patient was noticed to be aggressive to staff and there was risking for some himself to his been evaluated by psychiatric service patient was uncooperative and the psychiatrist re commended a second evaluation prior to discharge, currently patient has a sitter at bedside for safety. hot iron worker on the case for temporal guardianship Hemodynamically he is a stable. Labs are unremarkable and patient denies any other symptoms. He denies chest pain or dyspnea. No abdominal pain. No nausea vomiting. No change in urine or bowel habits. No fever 09/16/2019 Patient is awake and alert and lying In Bed, No New Complaint. Patient Denies Suicidal Ideation or Tendency to Hurt Himself or Others. He says he does not feel weak anymore. Vitals are stable. However his creatinine is elevated at 1.6 compared to 0.9-1.1 up on admission. We will start the patient on IV fluids and check bladder scan. Also will ask for psych follow-up. hot iron worker is working on outpatient temporal guardianship. 09/17/2019 Patient is awake, not in distress. No new complaint leg no chest pain or dyspnea. No bowel problem or eating difficulty. Patient remains calm with sitter at bedside. Discussed with patient this morning he is willing to cooperate with the psychiatrist to be called. Waiting for early evaluation by psychiatrist as well as group social worker working on temporal guardianship 09/18/2019 Patient is awake and calm, no new complaints. No chest pain or dyspnea. He st ill hemodynamically stable. No abdominal pain. His blood pressure this morning was 124/71, heart rate 76 and saturating 99%. Patient is been afebrile. Renal ultrasound was unremarkable except for pain is improving gradually down to 1. CBC is unremarkable. Bladder scan checked yesterday showing postvoid residual of 0. Continue with normal saline at 75 mg/h 09/19/2019 Patient is sitting up at the site of the bed in no acute distress having conversation with the patient sitter. No acute overnight issues. Patient denies any chest pain, shortness of breath, or palpitations. Patient remains afebrile. Patient denies any nausea or vomiting and is tolerating diet. A court hearing is scheduled for this Tuesday to obtain temporary guardianship to assist patient with an ECF or rehab facility. Willl continue to monitor closely. 09/20/2019 Patient is lying in bed sleeping but easily arousable. Patient sitter is at the bedside. No acute overnight issues. Patient is refusing to speak with assembly instructions writer today, unable to obtain a review of systems. Spoke with the dietitian today as she is concerned about his poor oral intake and stating that over the last 5 days he is minimally eating and not meeting his nutritional needs. Dietitian made suggestions of a possible feeding tube and will hold off on this at this time. Patient is eating Magic cups along with chocolate ice cream multiple times during the day. Will continue to monitor intake and output closely. There is a court hearing scheduled for 8:30 in the morning to obtain temporary guardianship in case management and social work had been working on possible placement for discharge. Will continue to monitor closely. 09/21/2019 Patient is sitting up at the side of the bed in no acute distress. No acute overnight issues. Social work attended a court hearing today and temporary guardianship was obtained. Patient will be seen by court-appointed guardian either today or Tuesday and social work will continue to work on obtaining an accepting facility. Patient was seen by psychiatry today and is not recommending inpatient psychiatric facility and has cleared the patient on a one-on-one sitter at this time. Will continue to monitor closely. Guarded prognosis. 09/22/2019 Patient is currently lying in the bed comfortably. Denied any complaints of chest pain or worsening shortness of breath. Awaiting placement to inpatient psychiatric facility. Patient has been afebrile. No chest pain. No nausea vomiting or abdominal pain. No diarrhea. No other acute overnight issues. Current medications reviewed. Objective - Vital Signs Vital signs: Vital Signs Temp 98.3 F 09/22/19 12:18 Pulse 91 09/22/19 14:44 Resp 16 09/22/19 14:44 BP 115/74 09/22/19 12:18 Pulse Ox 95 09/22/19 12:18 Intake & Output 09/21/19 09/22/19 09/22/19 18:59 06:59 18:59 Intake Total 400 160 Output Total 200 Balance 400 -40 Weight 63.5 kg Intake: Oral 400 160 Output: Urine 200 Other: Voiding Method Toilet Toilet Toilet # Voids 4 1 3 # Bowel Movements 1 1 - Exam Gen: This is a 74-year-old male sitting at the side of the bed in no acute distress. We'll signs are stable. Temp is 98 F, pulse is 72, respirations are 20, blood pressure is 116/67, oxygen saturation is 95% on room air. HEENT: Head is atraumatic, normocephalic. Patient is legally blind. Sclerae is anicteric. Poor oral hygiene with multiple teeth missing noted NECK: Supple. No JVD. No lymphadenopathy. No thyromegaly. LUNGS: Diminished breath sounds at the bases with a few scattered rhonchi noted. No intercostal retractions. HEART: Cardio S1 and S2 are muffled ABDOMEN: Soft. Bowel sounds are present. No masses. No tenderness. EXTREMITIES: No pedal edema. No calf tenderness. NEUROLOGICAL: Patient is asleep but arousable, alert and oriented x1-2. - Labs CBC & Chem 7: 09/18/19 06:54 09/19/19 07:23 Assessment and Plan Assessment: Change in mental status, possible acute on chronic metabolic encephalopathy, possible acute transient ischemic attack old left basal ganglia lacunar infarct with old left parietal infarct Acute kidney injury Agitation on admission with the risks to self and staff Bilateral carotid stenosis Bilateral blindness Hyperlipidemia Chronic degenerative joint disease History of nicotine dependence Deep vein thrombosis prophylaxis Increased AST History of spinal stenosis history of legal blindness Anxiety/depression Gait dysfunction Full code Recommendations and discussion: Recommend to continue current medications, management, and symptomatic treatment. Sitter was discontinued and psych has cleared the patient at this time. Will continue to monitor closely. Case management and social work are following. Court hearing was today and SW obtained temporary guardianship. Awaiting an accepting facility for placement. PT/OT following. Prognosis is extremely guarded due to his multiple complex medical issues. Further recommendations to follow. Time with Patient: Greater than 30
[2019-09-23] MEDS: HYDROcodone/APAP 10-325MG 1 EACH TAB PO PRN ×3 (02:02→19:35)
[2019-09-23] MEDS: SODIUM CHLORIDE 0.9% 1,000 ML IV SCH ×2 (04:26→07:37)
[2019-09-23] MEDS: TAMSULOSIN 0.4 MG CAP.ER.24H PO SCH (07:35)
[2019-09-23] MEDS: ASPIRIN 81 MG PO SCH (07:35)
[2019-09-23] MEDS: PANTOPRAZOLE 40 MG TABLET PO SCH (07:35)
[2019-09-23] MEDS: HEPARIN SODIUM,PORCINE 5,000 UNIT/ML 1 ML VIAL SQ SCH ×2 (07:36→19:37)
[2019-09-23] MEDS: CLOTRIMAZOLE 1% CREAM 15 GM TUBE TOPICAL SCH ×2 (07:38→19:37)
[2019-09-23] MEDS: traZODone HCL 50 MG TAB PO SCH (20:57)
[2019-09-23] MEDS: MELATONIN 3 MG TABLET PO SCH (20:57)
[2019-09-24] MEDS: HYDROcodone/APAP 10-325MG 1 EACH TAB PO PRN ×4 (03:38→19:18)
[2019-09-24] MEDS: SODIUM CHLORIDE 0.9% 1,000 ML IV SCH (03:38)
[2019-09-24] MEDS: ASPIRIN 81 MG PO SCH (08:03)
[2019-09-24] MEDS: PANTOPRAZOLE 40 MG TABLET PO SCH (08:03)
[2019-09-24] MEDS: HEPARIN SODIUM,PORCINE 5,000 UNIT/ML 1 ML VIAL SQ SCH ×2 (08:03→19:24)
[2019-09-24] MEDS: TAMSULOSIN 0.4 MG CAP.ER.24H PO SCH (08:03)
[2019-09-24] MEDS: CLOTRIMAZOLE 1% CREAM 15 GM TUBE TOPICAL SCH ×2 (08:04→19:18)
--- NOTE | 2019-09-24 15:44 | P.CN ---
Psychiatric Consult - . Consult date: 09/24/19 Consult:: 09/24/19 15:43 The patient was seen today as a follow-up psychiatric consult. Subjective: The patient has been seen today as follow-up, chart reviewed, case discussed with the treatment team. The patient has a chief complain "give me my [place], and get me out of this place". The patient expressed that he is very angry because he is not at his home and he wants to leave the hospital. Apparently the patient has poor insight about his medical condition and he doesn't agree with her discharge plan to go for a structured environment. The patient was not able to give informative history, but he clearly was verbalizing suicidal threat because he is not at home and he wants to go back to his home "I would kill myself if I am not going back to my home". One further discussed the suicidal threats with the patient, he clearly states that "I was joking". Clearly the patient doesn't have suicidal thoughts and he is using these statements to express his anger and refusal for the care and discharge plan recommended by the treatment team. When discussed with the patient if he wants to come to psychiatric floor for further monitoring and treatment, he clearly states that "I don't have suicidal thoughts and I was joking". There is no report of hallucinations or delusions, and no reports of manic symptoms. Mental status examination; The patient appears his stated age, dressed in hospital gown, below average body built was no specific features. Patient was lying in bed and he gait was not assessed. Patient was not fully cooperative but he has fair eye contact. No psychomotor agitation and dressed. Speech was loud but not pressured. Mood "anxious", and expressed sad that he is not at his home. Affect was restricted in range. Thought form not and coherent. Thought content no delusions elicited and expressed that he was threatening suicidal as "joke". No hallucinations reported and the patient was alert. Patient is not fully oriented but he knows that he is in the hospital. Patient has limited insight and judgment. Assessment: Adjustment disorder. Recommendations: Addressed and ensured patient's safety, patient is not actively suicidal, and he denies any intent to hurt himself . Patient does not meet the criteria for psychiatric hospitalization. Patient needs placement in a structured environment due to cognitive impairment and other medical conditions. At this time there is no need for further follow-up by psychiatric team . Discussed the treatment plan with the requesting physician/service. Thank you for permitting me to assist in this patient's treatment. Please call psychiatry department if you have any question or need further help with this case.
--- NOTE | 2019-09-24 16:47 | P.PN ---
Subjective Progress Note Date: 09/24/19 Principal diagnosis: This is a 73-year-old male who was recently admitted with change in mental status and is being closely monitored. Patient continues to be confused and belligerent. When talking with the patient today patient was pleasant and calm as he was eating ice cream and per nursing staff that is the only thing that keeps him calm. Neurology and psychiatry were consulted. Neurology has signed off at this time and psychiatry is recommending gathering further information from [employer] as well as his daughter Conchis who may know more information about his medical history. Case management and social studies teacher following. Patient may need possible placement and guardianship as he currently lives at home alone and has visiting nurses come out 2 hours per week to bring him groceries as he will not allow them to enter the home. Currently patient denies any chest pain, shortness of breath, or palpitations. Patient is afebrile. Patient denies any nausea or vomiting and is tolerating diet. Patient does have a sitter at the bedside. Will continue to monitor closely. Guarded prognosis. 09/12/2019 Patient is sitting up in bed in no acute distress eating ice cream. Patient is belligerent upon entering the room and refusing to speak with me unless I bring more ice cream. Unable to obtain a review of systems as he keeps cursing at sba underwriter with each question. Sitter at the bedside. Patient was petitioned today by social work as he is refusing any type of placement but his current apartment. Adult protective services met with social work and patient this am and was witness to his refusal. A court hearing is scheduled this tuesday for possible appointment of temporary guardian as the patient is not appropriate to care for himself and to make his own decisions. Overnight patient pulled his indwelling catheter out and was replaced. No blood or trauma noted on exam today. Patient is currently sitting up in bed in only a diaper and refusing to wear his gown. Will continue to monitor closely. 09/13/2019 Patient is currently lying in bed sleeping with a sitter at the bedside. Per nursing staff no acute overnight issues and patient is calm and cooperative as long as he is receiving "polk mist pop and ice cream". Patient is awaiting a court hearing tomorrow in an attempt to obtain temporary guardianship so placement can be established. Case management and social work are following closely. Patient will continue to work with PT/OT for strength and mobility. Labs done yesterday and within normal limits. Will continue to monitor closely. 09/14/2019 Patient is sitting up in bed in no acute distress. No Acute overnight issues. Social work attended a court hearing today and was not granted temporary guardianship for placement as the guardian had not personally interviewed the patient. A scheduled hearing is rescheduled for next week Tuesday and will attempt for placement at that time. Patient is being followed by psychiatry as he allegedly made previous threats of wanting to harm himself. Patient denies suicidal ideation at this time. Patient becomes agitated and aggressive at staff at times. Will continue to monitor closely. 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 Patient presents with altered mental status, thought to be metabolic encephalopathy versus acute TIA however his mentation is improved. Patient was noticed to be aggressive to staff and there was risking for some himself to his been evaluated by psychiatric service patient was uncooperative and the psychiatrist recommended a second evaluation prior to discharge, currently patient has a sitter at bedside for safety. [employer] worker on the case for temporal [facility] ip Hemodynamically he is a stable. Labs are unremarkable and patient denies any other symptoms. He denies chest pain or dyspnea. No abdominal pain. No nausea vomiting. No change in urine or bowel habits. No fever 09/16/2019 Patient is awake and alert and lying In Bed, No New Complaint. Patient Denies Suicidal Ideation or Tendency to Hurt Himself or Others. He says he does not feel weak anymore. Vitals are stable. However his creatinine is elevated at 1.6 compared to 0.9-1.1 up on admission. We will start the patient on IV fluids and check bladder scan. Also will ask for psych follow-up. [employer] [facility] 09/17/2019 Patient is awake, not in distress. No new complaint leg no chest pain or dyspnea. No bowel problem or eating difficulty. Patient remains calm with sitter at bedside. Discussed with patient this morning he is willing to cooperate with the psychiatrist to be called. Waiting for early evaluation by psychiatrist as well as social studies teacher working on temporal guardianship 09/18/2019 Patient is awake and calm, no new complaints. No chest pain or dyspnea. He still hemodynamically stable. No abdominal pain. His blood pressure this morning was 124/71, heart rate 76 and saturating 99%. Patient is been afebrile. Renal ultrasound was unremarkable except for pain is improving gradually down to 1. CBC is unremarkable. Bladder scan checked yesterday showing postvoid residual of 0. Continue with normal saline at 75 mg/h 09/19/2019 Patient is sitting up at the site of the bed in no acute distress having conve rsation with the patient sitter. No acute overnight issues. Patient denies any chest pain, shortness of breath, or palpitations. Patient remains afebrile. Patient denies any nausea or vomiting and is tolerating diet. A court hearing is scheduled for this Tuesday to obtain temporary guardianship to assist patient with an ECF or rehab facility. Willl continue to monitor closely. 09/20/2019 Patient is lying in bed sleeping but easily arousable. Patient sitter is at the bedside. No acute overnight issues. Patient is refusing to speak with sba underwriter today, unable to obtain a review of systems. Spoke with the dietitian today as she is concerned about his poor oral intake and stating that over the last 5 days he is minimally eating and not meeting his nutritional needs. Dietitian made suggestions of a possible feeding tube and will hold off on this at this time. Patient is eating Magic cups along with chocolate ice cream multiple times during the day. Will continue to monitor intake and output closely. There is a court hearing scheduled for 8:30 in the morning to obtain temporary guardianship in case management and social work had been working on possible placement for discharge. Will continue to monitor closely. 09/21/2019 Patient is sitting up at the side of the bed in no acute distress. No acute overnight issues. Social work attended a court hearing today and temporary guardianship was obtained. Patient will be seen by court-appointed guardian either today or Tuesday and social work will continue to work on obtaining an accepting facility. Patient was seen by psychiatry today and is not recommending inpatient psychiatric facility and has cleared the patient on a one-on-one sitter at this time. Will continue to monitor closely. Guarded prognosis. 09/22/2019 Patient is currently lying in the bed comfortably. Denied any complaints of chest pain or worsening shortness of breath. Awaiting placement to inpatient psychiatric facility. Patient has been afebrile. No chest pain. No nausea vomiting or abdominal pain. No diarrhea. No other acute overnight issues. 2018 Patient is lying in bed in no acute distress with no acute overnight issues. Patient is currently awaiting placement at an ECF as his home situation is unsafe. Patient does have a temporary guardianship appointed to him at this time. Case management and social work are following closely in an attempt to find placement within [facility]. Will continue to monitor closely. Patient remains afebrile. Patient denies any nausea or vomiting and has been tolerating food. Patient prefers chocolate ice cream and pop. Psychiatry was following and will continue on an as-needed basis at this time. Per psychiatry recommendations patient is not requiring inpatient psych at this time but would benefit from an [facility] structured facility. Guarded prognosis. Objective - Vital Signs Vital signs: Vital Signs Temp 98.3 F 09/24/19 14:24 Pulse 73 09/24/19 14:24 Resp 20 09/24/19 14:24 BP 151/81 09/24/19 14:24 Pulse Ox 99 09/24/19 14:24 Intake & Output 09/23/19 09/24/19 09/24/19 18:59 06:59 18:59 Weight 63.5 kg Other: Voiding Method Toilet Toilet Diaper # Voids 5 4 5 # Bowel Movements 1 - Exam Gen: This is a 74-year-old male sitting at the side of the bed in no acute distress. Vital signs are stable. Temp is 98.1 F, pulse is 71, respirations are 18, blood pressure is 102/55, oxygen saturation is 97% on room air. HEENT: Head is atraumatic, normocephalic. Patient is legally blind. Sclerae is anicteric. Poor oral hygiene with multiple teeth missing noted NECK: Supple. No JVD. No lymphadenopathy. No thyromegaly. LUNGS: Diminished breath sounds at the bases with no wheezing or rhonchi noted. No intercostal retractions. HEART: Cardio S1 and S2 are muffled ABDOMEN: Soft. Bowel sounds are present. No masses. No tenderness. EXTREMITIES: No pedal edema. No calf tenderness. NEUROLOGICAL: Patient is asleep but arousable, alert and oriented x1-2. - Labs CBC & Chem 7: 09/18/19 06:54 09/19/19 07:23 Assessment and Plan Assessment: Change in mental status, possible acute on chronic metabolic encephalopathy, pos sible acute transient ischemic attack old left basal ganglia lacunar infarct with old left parietal infarct Acute kidney injury Agitation on admission with the risks to self and staff Bilateral carotid stenosis Bilateral blindness Hyperlipidemia Chronic degenerative joint disease History of nicotine dependence Deep vein thrombosis prophylaxis Increased AST History of spinal stenosis history of legal blindness Anxiety/depression Gait dysfunction Full code Recommendations and discussion: Recommend to continue current medications, management, and symptomatic treatment. Sitter was discontinued and psych has cleared the patient at this time. Will continue to monitor closely. Case management and social work are following. Awaiting an accepting facility for placement. PT/OT following. Prognosis is extremely guarded due to his multiple complex medical issues. Further recommendations to follow.
[2019-09-24] MEDS: MELATONIN 3 MG TABLET PO SCH (20:25)
[2019-09-24] MEDS: traZODone HCL 50 MG TAB PO SCH (20:25)
[2019-09-25] MEDS: ASPIRIN 81 MG PO SCH (08:09)
[2019-09-25] MEDS: HYDROcodone/APAP 10-325MG 1 EACH TAB PO PRN ×3 (08:10→20:49)
[2019-09-25] MEDS: TAMSULOSIN 0.4 MG CAP.ER.24H PO SCH (08:10)
[2019-09-25] MEDS: PANTOPRAZOLE 40 MG TABLET PO SCH (08:12)
[2019-09-25] MEDS: HEPARIN SODIUM,PORCINE 5,000 UNIT/ML 1 ML VIAL SQ SCH ×2 (08:12→20:49)
[2019-09-25] MEDS: CLOTRIMAZOLE 1% CREAM 15 GM TUBE TOPICAL SCH ×2 (08:12→20:50)
--- NOTE | 2019-09-25 19:46 | P.PN ---
Subjective Progress Note Date: 09/25/19 Principal diagnosis: This is a 73-year-old male who was recently admitted with change in mental status and is being closely monitored. Patient continues to be confused and belligerent. When talking with the patient today patient was pleasant and calm as he was eating ice cream and per nursing staff that is the only thing that keeps him calm. Neurology and psychiatry were consulted. Neurology has signed off at this time and psychiatry is recommending gathering further information from [employer] as well as his daughter Conchis who may know more information about his medical history. Case management and clinical social work therapist following. Patient may need possible placement and guardianship as he currently lives at home alone and has visiting nurses come out 2 hours per week to bring him groceries as he will not allow them to enter the home. Currently patient denies any chest pain, shortness of breath, or palpitations. Patient is afebrile. Patient denies any nausea or vomiting and is tolerating diet. Patient does have a sitter at the bedside. Will continue to monitor closely. Guarded prognosis. 09/12/2019 Patient is sitting up in bed in no acute distress eating ice cream. Patient is belligerent upon entering the room and refusing to speak with me unless I bring more ice cream. Unable to obtain a review of systems as he keeps cursing at staff writer with each question. Sitter at the bedside. Patient was petitioned today by social work as he is refusing any type of placement but his current apartment. Adult protective services met with social work and patient this am and was witness to his refusal. A court hearing is scheduled this tuesday for possible appointment of temporary guardian as the patient is not appropriate to care for himself and to make his own decisions. Overnight patient pulled his indwelling catheter out and was replaced. No blood or trauma noted on exam today. Patient is currently sitting up in bed in only a diaper and refusing to wear his gown. Will continue to monitor closely. 09/13/2019 Patient is currently lying in bed sleeping with a sitter at the bedside. Per nursing staff no acute overnight issues and patient is calm and cooperative as long as he is receiving "polk mist pop and ice cream". Patient is awaiting a court hearing tomorrow in an attempt to obtain temporary guardianship so placement can be established. Case management and social work are following closely. Patient will continue to work with PT/OT for strength and mobility. Labs done yesterday and within normal limits. Will continue to monitor closely. 09/14/2019 Patient is sitting up in bed in no acute distress. No Acute overnight issues. Social work attended a court hearing today and was not granted temporary guardianship for placement as the guardian had not personally interviewed the patient. A scheduled hearing is rescheduled for next week Tuesday and will attempt for placement at that time. Patient is being followed by psychiatry as he allegedly made previous threats of wanting to harm himself. Patient denies suicidal ideation at this time. Patient becomes agitated and aggressive at staff at times. Will continue to monitor closely. 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 Patient presents with altered mental status, thought to be metabolic encephalopathy versus acute TIA however his mentation is improved. Patient was noticed to be aggressive to staff and there was risking for some himself to his been evaluated by psychiatric service patient was uncooperative and the psychiatrist recommended a second evaluation prior to discharge, currently patient has a sitter at bedside for safety. eligibility worker on the case for temporal [facility] ip Hemodynamically he is a stable. Labs are unremarkable and patient denies any other symptoms. He denies chest pain or dyspnea. No abdominal pain. No nausea vomiting. No change in urine or bowel habits. No fever 09/16/2019 Patient is awake and alert and lying In Bed, No New Complaint. Patient Denies Suicidal Ideation or Tendency to Hurt Himself or Others. He says he does not feel weak anymore. Vitals are stable. However his creatinine is elevated at 1.6 compared to 0.9-1.1 up on admission. We will start the patient on IV fluids and check bladder scan. Also will ask for psych follow-up. [facility] 09/17/2019 Patient is awake, not in distress. No new complaint leg no chest pain or dyspnea. No bowel problem or eating difficulty. Patient remains calm with sitter at bedside. Discussed with patient this morning he is willing to cooperate with the psychiatrist to be called. Waiting for early evaluation by psychiatrist as well as clinical social work therapist working on temporal guardianship 09/18/2019 Patient is awake and calm, no new complaints. No chest pain or dyspnea. He still hemodynamically stable. No abdominal pain. His blood pressure this morning was 124/71, heart rate 76 and saturating 99%. Patient is been afebrile. Renal ultrasound was unremarkable except for pain is improving gradually down to 1. CBC is unremarkable. Bladder scan checked yesterday showing postvoid residual of 0. Continue with normal saline at 75 mg/h 09/19/2019 Patient is sitting up at the site of the bed in no acute distress having conve rsation with the patient sitter. No acute overnight issues. Patient denies any chest pain, shortness of breath, or palpitations. Patient remains afebrile. Patient denies any nausea or vomiting and is tolerating diet. A court hearing is scheduled for this Tuesday to obtain temporary guardianship to assist patient with an ECF or rehab facility. Willl continue to monitor closely. 09/20/2019 Patient is lying in bed sleeping but easily arousable. Patient sitter is at the bedside. No acute overnight issues. Patient is refusing to speak with staff writer today, unable to obtain a review of systems. Spoke with the dietitian today as she is concerned about his poor oral intake and stating that over the last 5 days he is minimally eating and not meeting his nutritional needs. Dietitian made suggestions of a possible feeding tube and will hold off on this at this time. Patient is eating Magic cups along with chocolate ice cream multiple times during the day. Will continue to monitor intake and output closely. There is a court hearing scheduled for 8:30 in the morning to obtain temporary guardianship in case management and social work had been working on possible placement for discharge. Will continue to monitor closely. 09/21/2019 Patient is sitting up at the side of the bed in no acute distress. No acute overnight issues. Social work attended a court hearing today and temporary guardianship was obtained. Patient will be seen by court-appointed guardian either today or Tuesday and social work will continue to work on obtaining an accepting facility. Patient was seen by psychiatry today and is not recommending inpatient psychiatric facility and has cleared the patient on a one-on-one sitter at this time. Will continue to monitor closely. Guarded prognosis. 09/22/2019 Patient is currently lying in the bed comfortably. Denied any complaints of chest pain or worsening shortness of breath. Awaiting placement to inpatient psychiatric facility. Patient has been afebrile. No chest pain. No nausea vomiting or abdominal pain. No diarrhea. No other acute overnight issues. 2018 Patient is lying in bed in no acute distress with no acute overnight issues. Patient is currently awaiting placement at an [facility] as his home situation is unsafe. Patient does have a temporary guardianship appointed to him at this time. Case management and social work are following closely in an attempt to find placement within [facility]. Will continue to monitor closely. Patient remains afebrile. Patient denies any nausea or vomiting and has been tolerating food. Patient prefers chocolate ice cream and pop. Psychiatry was following and will continue on an as-needed basis at this time. Per psychiatry recommendations patient is not requiring inpatient psych at this time but would benefit from an [facility] structured facility. Guarded prognosis. 09/25/2019 Patient is lying in bed in no acute distress calling out to staff stating "[place], [place]". When talking with the patient he just keeps demanding [place]. Patient unable to provide a review of systems. No acute overnight issues. Case management and social work are continuing to work on placement for patient as he has a temporary guardian. Will continue to monitor closely. Guarded prognosis. Objective - Vital Signs Vital signs: Vital Signs Temp 97.9 F 09/25/19 05:00 Pulse 89 09/25/19 05:00 Resp 16 09/25/19 05:00 BP 143/94 09/25/19 05:00 Pulse Ox 99 09/25/19 05:00 Intake & Output 09/24/19 09/25/19 09/25/19 18:59 06:59 18:59 Intake Total 850 Balance 850 Weight 63.5 kg Intake: Oral 850 Other: Voiding Method Toilet Toilet Toilet Diaper Diaper Diaper # Voids 5 2 - Exam Gen: This is a 74-year-old male lying in bed in no acute distress. Vital signs are stable. Temp is 97.9F, pulse is 89, respirations are 16, blood pressure is 143/94, oxygen saturation is 99 % on room air. HEENT: Head is atraumatic, normocephalic. Patient is legally blind. Sclerae is anicteric. Poor oral hygiene with multiple teeth missing noted NECK: Supple. No JVD. No lymphadenopathy. No thyromegaly. LUNGS: Diminished breath sounds at the bases with no wheezing or rhonchi noted. No intercostal retractions. HEART: Cardio S1 and S2 are muffled ABDOMEN: Soft. Bowel sounds are present. No masses. No tenderness. EXTREMITIES: No pedal edema. No calf tenderness. NEUROLOGICAL: Patient is asleep but arousable, alert and oriented x1-2. - Labs CBC & Chem 7: 09/18/19 06:54 09/19/19 07:23 Assessment and Plan Assessment: Change in mental status, possible acute on chronic metabolic encephalopathy, possible acute transient ischemic attack old left basal ganglia lacunar infarct with old left parietal infarct Acute kidney injury Agitation on admission with the risks to self and staff Bilateral carotid stenosis Bilateral blindness Hyperlipidemia Chronic degenerative joint disease History of nicotine dependence Deep vein thrombosis prophylaxis Increased AST History of spinal stenosis history of legal blindness Anxiety/depression Gait dysfunction Full code Recommendations and discussion: Recommend to continue current medications, management, and symptomatic treatment. Will continue to monitor closely. Case management and social work are following. Awaiting an accepting facility for placement. PT/OT following. Prognosis is extremely guarded due to his multiple complex medical issues. Further recommendations to follow.
[2019-09-25] MEDS: MELATONIN 3 MG TABLET PO SCH (20:49)
[2019-09-25] MEDS: traZODone HCL 50 MG TAB PO SCH (20:49)
[2019-09-26] MEDS: HYDROcodone/APAP 10-325MG 1 EACH TAB PO PRN ×4 (04:54→21:28)
[2019-09-26] MEDS: ASPIRIN 81 MG PO SCH (09:03)
[2019-09-26] MEDS: TAMSULOSIN 0.4 MG CAP.ER.24H PO SCH (09:03)
[2019-09-26] MEDS: PANTOPRAZOLE 40 MG TABLET PO SCH (09:04)
[2019-09-26] MEDS: HEPARIN SODIUM,PORCINE 5,000 UNIT/ML 1 ML VIAL SQ SCH ×3 (09:04→21:28)
--- NOTE | 2019-09-26 14:12 | P.PN ---
Subjective Progress Note Date: 09/26/19 Principal diagnosis: This is a 73-year-old male who was recently admitted with change in mental status and is being closely monitored. Patient continues to be confused and belligerent. When talking with the patient today patient was pleasant and calm as he was eating ice cream and per nursing staff that is the only thing that keeps him calm. Neurology and psychiatry were consulted. Neurology has signed off at this time and psychiatry is recommending gathering further information from [facility] [employer] as well as his daughter Conchis who may know more information about his medical history. Case management and social media sr strategy manager following. Patient may need possible placement and guardianship as he currently lives at home alone and has visiting nurses come out 2 hours per week to bring him groceries as he will not allow them to enter the home. Currently patient denies any chest pain, shortness of breath, or palpitations. Patient is afebrile. Patient denies any nausea or vomiting and is tolerating diet. Patient does have a sitter at the bedside. Will continue to monitor closely. Guarded prognosis. 09/12/2019 Patient is sitting up in bed in no acute distress eating ice cream. Patient is belligerent upon entering the room and refusing to speak with me unless I bring more ice cream. Unable to obtain a review of systems as he keeps cursing at sign writer hand with each question. Sitter at the bedside. Patient was petitioned today by social work as he is refusing any type of placement but his current apartment. Adult protective services met with social work and patient this am and was witness to his refusal. A court hearing is scheduled this tuesday for possible appointment of temporary guardian as the patient is not appropriate to care for himself and to make his own decisions. Overnight patient pulled his indwelling catheter out and was replaced. No blood or trauma noted on exam today. Patient is currently sitting up in bed in only a diaper and refusing to wear his gown. Will continue to monitor closely. 09/13/2019 Patient is currently lying in bed sleeping with a sitter at the bedside. Per nursing staff no acute overnight issues and patient is calm and cooperative as long as he is receiving "polk mist pop and ice cream". Patient is awaiting a court hearing tomorrow in an attempt to obtain temporary guardianship so placement can be established. Case management and social work are following closely. Patient will continue to work with PT/OT for strength and mobility. Labs done yesterday and within normal limits. Will continue to monitor closely. 09/14/2019 Patient is sitting up in bed in no acute distress. No Acute overnight issues. Social work attended a court hearing today and was not granted temporary guardianship for placement as the guardian had not personally interviewed the patient. A scheduled hearing is rescheduled for next week Tuesday and will attempt for placement at that time. Patient is being followed by psychiatry as he allegedly made previous threats of wanting to harm himself. Patient denies suicidal ideation at this time. Patient becomes agitated and aggressive at staff at times. Will continue to monitor closely. 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 Patient presents with altered mental status, thought to be metabolic encephalopathy versus acute TIA however his mentation is improved. Patient was noticed to be aggressive to staff and there was risking for some himself to his been evaluated by psychiatric service patient was uncooperative and the psychiatrist recommended a second evaluation prior to discharge, currently patient has a sitter at bedside for safety. social worker health services on the case for temporal [facility] ip Hemodynamically he is a stable. Labs are unremarkable and patient denies any other symptoms. He denies chest pain or dyspnea. No abdominal pain. No nausea vomiting. No change in urine or bowel habits. No fever 09/16/2019 Patient is awake and alert and lying In Bed, No New Complaint. Patient Denies Suicidal Ideation or Tendency to Hurt Himself or Others. He says he does not feel weak anymore. Vitals are stable. However his creatinine is elevated at 1.6 compared to 0.9-1.1 up on admission. We will start the patient on IV fluids and check bladder scan. Also will ask for psych follow-up. social worker health services [facility] 09/17/2019 Patient is awake, not in distress. No new complaint leg no chest pain or dyspnea. No bowel problem or eating difficulty. Patient remains calm with sitter at bedside. Discussed with patient this morning he is willing to cooperate with the psychiatrist to be called. Waiting for early evaluation by psychiatrist as well as social media sr strategy manager working on temporal guardianship 09/18/2019 Patient is awake and calm, no new complaints. No chest pain or dyspnea. He still hemodynamically stable. No abdominal pain. His blood pressure this morning was 124/71, heart rate 76 and saturating 99%. Patient is been afebrile. Renal ultrasound was unremarkable except for pain is improving gradually down to 1. CBC is unremarkable. Bladder scan checked yesterday showing postvoid residual of 0. Continue with normal saline at 75 mg/h 09/19/2019 Patient is sitting up at the site of the bed in no acute distress having conve rsation with the patient sitter. No acute overnight issues. Patient denies any chest pain, shortness of breath, or palpitations. Patient remains afebrile. Patient denies any nausea or vomiting and is tolerating diet. A court hearing is scheduled for this Tuesday to obtain temporary guardianship to assist patient with an ECF or rehab facility. Willl continue to monitor closely. 09/20/2019 Patient is lying in bed sleeping but easily arousable. Patient sitter is at the bedside. No acute overnight issues. Patient is refusing to speak with sign writer hand today, unable to obtain a review of systems. Spoke with the dietitian today as she is concerned about his poor oral intake and stating that over the last 5 days he is minimally eating and not meeting his nutritional needs. Dietitian made suggestions of a possible feeding tube and will hold off on this at this time. Patient is eating Magic cups along with chocolate ice cream multiple times during the day. Will continue to monitor intake and output closely. There is a court hearing scheduled for 8:30 in the morning to obtain temporary guardianship in case management and social work had been working on possible placement for discharge. Will continue to monitor closely. 09/21/2019 Patient is sitting up at the side of the bed in no acute distress. No acute overnight issues. Social work attended a court hearing today and temporary guardianship was obtained. Patient will be seen by court-appointed guardian either today or Tuesday and social work will continue to work on obtaining an accepting facility. Patient was seen by psychiatry today and is not recommending inpatient psychiatric facility and has cleared the patient on a one-on-one sitter at this time. Will continue to monitor closely. Guarded prognosis. 09/22/2019 Patient is currently lying in the bed comfortably. Denied any complaints of chest pain or worsening shortness of breath. Awaiting placement to inpatient psychiatric facility. Patient has been afebrile. No chest pain. No nausea vomiting or abdominal pain. No diarrhea. No other acute overnight issues. 2018 Patient is lying in bed in no acute distress with no acute overnight issues. Patient is currently awaiting placement at an [facility] as his home situation is unsafe. Patient does have a temporary guardianship appointed to him at this time. Case management and social work are following closely in an attempt to find placement within [facility]. Will continue to monitor closely. Patient remains afebrile. Patient denies any nausea or vomiting and has been tolerating food. Patient prefers chocolate ice cream and pop. Psychiatry was following and will continue on an as-needed basis at this time. Per psychiatry recommendations patient is not requiring inpatient psych at this time but would benefit from an [facility] structured facility. Guarded prognosis. 09/25/2019 Patient is lying in bed in no acute distress calling out to staff stating "Mars, norco". When talking with the patient he just keeps demanding norco. Patient unable to provide a review of systems. No acute overnight issues. Case management and social work are continuing to work on placement for patient as he has a temporary guardian. Will continue to monitor closely. Guarded prognosis. 09/26/2019 Patient is sitting in bed in no acute distress with no acute overnight issues. Patient is afebrile. Vital signs have been stable. Patient continues to refuse food for meals but is eating all of his Magic cups along with ice cream throughout the day. Patient continues to work with PT/OT. Temporary guardian was to meet with the patient today. Social work continues to work on possible placement as they're currently no accepting facilities at this time. Will continue to monitor closely. Objective - Vital Signs Vital signs: Vital Signs Temp 97.7 F 09/26/19 05:00 Pulse 78 09/26/19 05:00 Resp 16 09/26/19 05:00 BP 156/79 09/26/19 05:00 Pulse Ox 96 09/26/19 05:00 Intake & Output 09/25/19 09/26/19 09/26/19 18:59 06:59 18:59 Intake Total 480 1180 Balance 480 1180 Intake: Oral 480 1180 Other: Voiding Method Toilet Toilet # Voids 3 3 1 # Bowel Movements 1 - Exam Gen: This is a 74-year-old male lying in bed in no acute distress. Vital signs are stable. Temp is 97.7F, pulse is 78, respirations are 16, blood pressure is 156/79, oxygen saturation is 96 % on room air. HEENT: Head is atraumatic, normocephalic. Patient is legally blind. Sclerae is anicteric. Poor oral hygiene with multiple teeth missing noted NECK: Supple. No JVD. No lymphadenopathy. No thyromegaly. LUNGS: Diminished breath sounds at the bases with no wheezing or rhonchi noted. No intercostal retractions. HEART: Cardio S1 and S2 are muffled ABDOMEN: Soft. Bowel sounds are present. No masses. No tenderness. EXTREMITIES: No pedal edema. No calf tenderness. NEUROLOGICAL: Patient is asleep but arousable, alert and oriented x1-2. - Labs CBC & Chem 7: 09/18/19 06:54 09/19/19 07:23 Assessment and Plan Assessment: Change in mental status, possible acute on chronic metabolic encephalopathy, possible acute transient ischemic attack old left basal ganglia lacunar infarct with old left parietal infarct Acute kidney injury Agitation on admission with the risks to self and staff Bilateral carotid stenosis Bilateral blindness Hyperlipidemia Chronic degenerative joint disease History of nicotine dependence Deep vein thrombosis prophylaxis Increased AST History of spinal stenosis history of legal blindness Anxiety/depression Gait dysfunction Full code Recommendations and discussion: Recommend to continue current medications, management, and symptomatic treatment. Will continue to monitor closely. Case management and social work are following. Awaiting an accepting facility for placement. Guardian met with social work and the patient today to discuss possible options of placement versus returning to his home with constant supervision if his current living situation is deemed safe for the patient. PT/OT following. Prognosis is extremely guarded due to his multiple complex medical issues. Further recommendations to follow.
[2019-09-26] MEDS: traZODone HCL 50 MG TAB PO SCH (21:28)
[2019-09-26] MEDS: MELATONIN 3 MG TABLET PO SCH (21:29)
[2019-09-27] MEDS: HYDROcodone/APAP 10-325MG 1 EACH TAB PO PRN ×4 (05:30→21:38)
[2019-09-27] MEDS: HEPARIN SODIUM,PORCINE 5,000 UNIT/ML 1 ML VIAL SQ SCH ×2 (08:14→21:34)
[2019-09-27] MEDS: PANTOPRAZOLE 40 MG TABLET PO SCH (08:54)
[2019-09-27] MEDS: ASPIRIN 81 MG PO SCH (09:21)
[2019-09-27] MEDS: TAMSULOSIN 0.4 MG CAP.ER.24H PO SCH (09:21)
[2019-09-27 10:19] LABS: Calcium 9.9 mg/dL (8.4-10.2); Potassium 4.7 mmol/L (3.5-5.1)
--- NOTE | 2019-09-27 15:35 | P.PN ---
Subjective Progress Note Date: 09/27/19 Principal diagnosis: This is a 73-year-old male who was recently admitted with change in mental status and is being closely monitored. Patient continues to be confused and belligerent. When talking with the patient today patient was pleasant and calm as he was eating ice cream and per nursing staff that is the only thing that keeps him calm. Neurology and psychiatry were consulted. Neurology has signed off at this time and psychiatry is recommending gathering further information from visiting [employer] as well as his daughter Conchis who may know more information about his medical history. Case management and manager social work following. Patient may need possible placement and guardianship as he currently lives at home alone and has visiting nurses come out 2 hours per week to bring him groceries as he will not allow them to enter the home. Currently patient denies any chest pain, shortness of breath, or palpitations. Patient is afebrile. Patient denies any nausea or vomiting and is tolerating diet. Patient does have a sitter at the bedside. Will continue to monitor closely. Guarded prognosis. 09/12/2019 Patient is sitting up in bed in no acute distress eating ice cream. Patient is belligerent upon entering the room and refusing to speak with me unless I bring more ice cream. Unable to obtain a review of systems as he keeps cursing at advertising copy writer with each question. Sitter at the bedside. Patient was petitioned today by social work as he is refusing any type of placement but his current apartment. Adult protective services met with social work and patient this am and was witness to his refusal. A court hearing is scheduled this tuesday for possible appointment of temporary guardian as the patient is not appropriate to care for himself and to make his own decisions. Overnight patient pulled his indwelling catheter out and was replaced. No blood or trauma noted on exam today. Patient is currently sitting up in bed in only a diaper and refusing to wear his gown. Will continue to monitor closely. 09/13/2019 Patient is currently lying in bed sleeping with a sitter at the bedside. Per nursing staff no acute overnight issues and patient is calm and cooperative as long as he is receiving "polk mist pop and ice cream". Patient is awaiting a court hearing tomorrow in an attempt to obtain temporary guardianship so placement can be established. Case management and social work are following closely. Patient will continue to work with PT/OT for strength and mobility. Labs done yesterday and within normal limits. Will continue to monitor closely. 09/14/2019 Patient is sitting up in bed in no acute distress. No Acute overnight issues. Social work attended a court hearing today and was not granted temporary guardianship for placement as the guardian had not personally interviewed the patient. A scheduled hearing is rescheduled for next week Tuesday and will attempt for placement at that time. Patient is being followed by psychiatry as he allegedly made previous threats of wanting to harm himself. Patient denies suicidal ideation at this time. Patient becomes agitated and aggressive at staff at times. Will continue to monitor closely. 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 Patient presents with altered mental status, thought to be metabolic encephalopathy versus acute TIA however his mentation is improved. Patient was noticed to be aggressive to staff and there was risking for some himself to his been evaluated by psychiatric service patient was uncooperative and the psychiatrist recommended a second evaluation prior to discharge, currently patient has a sitter at bedside for safety. jet worker on the case for temporal [facility] Hemodynamically he is a stable. Labs are unremarkable and patient denies any other symptoms. He denies chest pain or dyspnea. No abdominal pain. No nausea vomiting. No change in urine or bowel habits. No fever 09/16/2019 Patient is awake and alert and lying In Bed, No New Complaint. Patient Denies Suicidal Ideation or Tendency to Hurt Himself or Others. He says he does not feel weak anymore. Vitals are stable. However his creatinine is elevated at 1.6 compared to 0.9-1.1 up on admission. We will start the patient on IV fluids and check bladder scan. Also will ask for psych follow-up. [facility] 09/17/2019 Patient is awake, not in distress. No new complaint leg no chest pain or dyspnea. No bowel problem or eating difficulty. Patient remains calm with sitter at bedside. Discussed with patient this morning he is willing to cooperate with the psychiatrist to be called. Waiting for early evaluation by psychiatrist as well as manager social work working on temporal guardianship 09/18/2019 Patient is awake and calm, no new complaints. No chest pain or dyspnea. He still hemodynamically stable. No abdominal pain. His blood pressure this morning was 124/71, heart rate 76 and saturating 99%. Patient is been afebrile. Renal ultrasound was unremarkable except for pain is improving gradually down to 1. CBC is unremarkable. Bladder scan checked yesterday showing postvoid residual of 0. Continue with normal saline at 75 mg/h 09/19/2019 Patient is sitting up at the site of the bed in no acute distress having conve rsation with the patient sitter. No acute overnight issues. Patient denies any chest pain, shortness of breath, or palpitations. Patient remains afebrile. Patient denies any nausea or vomiting and is tolerating diet. A court hearing is scheduled for this Tuesday to obtain temporary guardianship to assist patient with an ECF or rehab facility. Willl continue to monitor closely. 09/20/2019 Patient is lying in bed sleeping but easily arousable. Patient sitter is at the bedside. No acute overnight issues. Patient is refusing to speak with advertising copy writer today, unable to obtain a review of systems. Spoke with the dietitian today as she is concerned about his poor oral intake and stating that over the last 5 days he is minimally eating and not meeting his nutritional needs. Dietitian made suggestions of a possible feeding tube and will hold off on this at this time. Patient is eating Magic cups along with chocolate ice cream multiple times during the day. Will continue to monitor intake and output closely. There is a court hearing scheduled for 8:30 in the morning to obtain temporary guardianship in case management and social work had been working on possible placement for discharge. Will continue to monitor closely. 09/21/2019 Patient is sitting up at the side of the bed in no acute distress. No acute overnight issues. Social work attended a court hearing today and temporary guardianship was obtained. Patient will be seen by court-appointed guardian either today or Tuesday and social work will continue to work on obtaining an accepting facility. Patient was seen by psychiatry today and is not recommending inpatient psychiatric facility and has cleared the patient on a one-on-one sitter at this time. Will continue to monitor closely. Guarded prognosis. 09/22/2019 Patient is currently lying in the bed comfortably. Denied any complaints of chest pain or worsening shortness of breath. Awaiting placement to inpatient psychiatric facility. Patient has been afebrile. No chest pain. No nausea vomiting or abdominal pain. No diarrhea. No other acute overnight issues. 2018 Patient is lying in bed in no acute distress with no acute overnight issues. Patient is currently awaiting placement at an [facility] as his home situation is unsafe. Patient does have a temporary guardianship appointed to him at this time. Case management and social work are following closely in an attempt to find placement within [facility]. Will continue to monitor closely. Patient remains afebrile. Patient denies any nausea or vomiting and has been tolerating food. Patient prefers chocolate ice cream and pop. Psychiatry was following and will continue on an as-needed basis at this time. Per psychiatry recommendations patient is not requiring inpatient psych at this time but would benefit from an [facility] structured facility. Guarded prognosis. 09/25/2019 Patient is lying in bed in no acute distress calling out to staff stating "[place], [place]". When talking with the patient he just keeps demanding [place]. Patient unable to provide a review of systems. No acute overnight issues. Case management and social work are continuing to work on placement for patient as he has a temporary guardian. Will continue to monitor closely. Guarded prognosis. 09/26/2019 Patient is sitting in bed in no acute distress with no acute overnight issues. Patient is afebrile. Vital signs have been stable. Patient continues to refuse food for meals but is eating all of his Magic cups along with ice cream throughout the day. Patient continues to work with PT/OT. Temporary guardian was to meet with the patient today. Social work continues to work on possible placement as they're currently no accepting facilities at this time. Will continue to monitor closely. 09/27/2019 Patient is lying in bed in no acute distress with no acute overnight issues. Patient denies any chest pain, shortness of breath, or palpitations. Patient is afebrile. Patient has not any nausea or vomiting and is tolerating food. Patient continues to eat ice cream and Magic cups and refusing all other food at this time. Awaiting for placement at this time. Will continue to monitor closely. Objective - Vital Signs Vital signs: Vital Signs Temp 98.1 F 09/27/19 07:46 Pulse 74 09/27/19 07:46 Resp 18 09/27/19 07:46 BP 116/63 09/27/19 07:46 Pulse Ox 93 L 09/27/19 07:46 Intake & Output 09/26/19 09/27/19 09/27/19 18:59 06:59 18:59 Intake Total 690 Output Total 200 Balance -200 690 Intake: Oral 690 Output: Urine 200 Other: Voiding Method Toilet Toilet Toilet # Voids 5 3 - Exam Gen: This is a 74-year-old male lying in bed in no acute distress. Vital signs are stable. Temp is 98.1 F, pulse is 74, respirations are 18, blood pressure is 116/63, oxygen saturation is 93 % on room air. HEENT: Head is atraumatic, normocephalic. Patient is legally blind. Sclerae is anicteric. Poor oral hygiene with multiple teeth missing noted NECK: Supple. No JVD. No lymphadenopathy. No thyromegaly. LUNGS: Diminished breath sounds at the bases with no wheezing or rhonchi noted. No intercostal retractions. HEART: Cardio S1 and S2 are muffled ABDOMEN: Soft. Bowel sounds are present. No masses. No tenderness. EXTREMITIES: No pedal edema. No calf tenderness. NEUROLOGICAL: Patient is asleep but arousable, alert and oriented x1-2. - Labs CBC & Chem 7: 09/18/19 06:54 09/27/19 09:50 Labs: Abnormal Lab Results - Last 24 Hours (Table) 09/27/19 Range/Units 09:50 Creatinine 1.37 H (0.66-1.25) mg/dL Glucose 131 H (74-99) mg/dL Assessment and Plan Assessment: Change in mental status, possible acute on chronic metabolic encephalopathy, possible acute transient ischemic attack old left basal ganglia lacunar infarct with old left parietal infarct Acute kidney injury, current creatinine is 1.37 Agitation on admission with the risks to self and staff Bilateral carotid stenosis Bilateral blindness Hyperlipidemia Chronic degenerative joint disease History of nicotine dependence Deep vein thrombosis prophylaxis Increased AST History of spinal stenosis history of legal blindness Anxiety/depression Gait dysfunction Full code Recommendations and discussion: Recommend to continue current medications, management, and symptomatic treatment. Will continue to monitor closely. Case management and social work are following. Awaiting an accepting facility for placement. The guardian visited his apartment yesterday and stated that was not an option of returning to at this time and when speaking with the building management, they were in the process of evicting the patient. PT/OT following. Prognosis is extremely guarded due to his multiple complex medical issues. Further recommendations to follow.
--- NOTE | 2019-09-27 18:51 | P.PN ---
Subjective Progress Note Date: 09/23/19 Principal diagnosis: Acute metabolic encephalopathy Old CVA This is a 73-year-old male who was recently admitted with change in mental status and is being closely monitored. Patient continues to be confused and belligerent. When talking with the patient today patient was pleasant and calm as he was eating ice cream and per nursing staff that is the only thing that keeps him calm. Neurology and psychiatry were consulted. Neurology has signed off at this time and psychiatry is recommending gathering further information from [employer] as well as his daughter Conchis who may know more information about his medical history. Case management and director social following. Patient may need possible placement and guardianship as he currently lives at home alone and has visiting nurses come out 2 hours per week to bring him groceries as he will not allow them to enter the home. Currently patient denies any chest pain, shortness of breath, or palpitations. Patient is afebrile. Patient denies any nausea or vomiting and is tolerating diet. Patient does have a sitter at the bedside. Will continue to monitor closely. Guarded prognosis. 09/12/2019 Patient is sitting up in bed in no acute distress eating ice cream. Patient is belligerent upon entering the room and refusing to speak with me unless I bring more ice cream. Unable to obtain a review of systems as he keeps cursing at residential mortgage underwriter with each question. Sitter at the bedside. Patient was petitioned today by social work as he is refusing any type of placement but his current apartment. Adult protective services met with social work and patient this am and was witness to his refusal. A court hearing is scheduled this tuesday for possible appointment of temporary guardian as the patient is not appropriate to care for himself and to make his own decisions. Overnight patient pulled his indwelling catheter out and was replaced. No blood or trauma noted on exam today. Patient is currently sitting up in bed in only a diaper and refusing to wear his gown. Will continue to monitor closely. 09/13/2019 Patient is currently lying in bed sleeping with a sitter at the bedside. Per nursing staff no acute overnight issues and patient is calm and cooperative as long as he is receiving "polk mist pop and ice cream". Patient is awaiting a court hearing tomorrow in an attempt to obtain temporary guardianship so placement can be established. Case management and social work are following closely. Patient will continue to work with PT/OT for strength and mobility. Labs done yesterday and within normal limits. Will continue to monitor closely. 09/14/2019 Patient is sitting up in bed in no acute distress. No Acute overnight issues. Social work attended a court hearing today and was not granted temporary guardianship for placement as the guardian had not personally interviewed the p atient. A scheduled hearing is rescheduled for next week Tuesday and will attempt for placement at that time. Patient is being followed by psychiatry as he allegedly made previous threats of wanting to harm himself. Patient denies suicidal ideation at this time. Patient becomes agitated and aggressive at staff at times. Will continue to monitor closely. 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 Patient presents with altered mental status, thought to be metabolic encephalopathy versus acute TIA however his mentation is improved. Patient was noticed to be aggressive to staff and there was risking for some himself to his been evaluated by psychiatric service patient was uncooperative and the psychiatrist recommended a second evaluation prior to discharge, currently patient has a sitter at bedside for safety. nutrition worker on the case for temporal guardianship Hemodynamically he is a stable. Labs are unremarkable and patient denies any other symptoms. He denies chest pain or dyspnea. No abdominal pain. No nausea vomiting. No change in urine or bowel habits. No fever 09/16/2019 Patient is awake and alert and lying In Bed, No New Complaint. Patient Denies Suicidal Ideation or Tendency to Hurt Himself or Others. He says he does not feel weak anymore. Vitals are stable. However his creatinine is elevated at 1.6 compared to 0.9-1.1 up on admission. We will start the patient on IV fluids and check bladder scan. Also will ask for psych follow-up. nutrition worker is working on outpatient temporal guardianship. 09/17/2019 Patient is awake, not in distress. No new complaint leg no chest pain or dys pnea. No bowel problem or eating difficulty. Patient remains calm with sitter at bedside. Discussed with patient this morning he is willing to cooperate with the psychiatrist to be called. Waiting for early evaluation by psychiatrist as well as director social working on temporal guardianship 09/18/2019 Patient is awake and calm, no new complaints. No chest pain or dyspnea. He still hemodynamically stable. No abdominal pain. His blood pressure this morning was 124/71, heart rate 76 and saturating 99%. Patient is been afebrile. Renal ultrasound was unremarkable except for pain is improving gradually down to 1. CBC is unremarkable. Bladder scan checked yesterday showing postvoid resi dual of 0. Continue with normal saline at 75 mg/h 09/19/2019 Patient is sitting up at the site of the bed in no acute distress having conversation with the patient sitter. No acute overnight issues. Patient denies any chest pain, shortness of breath, or palpitations. Patient remains afebrile. Patient denies any nausea or vomiting and is tolerating diet. A court hearing is scheduled for this Tuesday to obtain temporary guardianship to assist patient with an ECF or rehab facility. Willl continue to monitor closely. 09/20/2019 Patient is lying in bed sleeping but easily arousable. Patient sitter is at the bedside. No acute overnight issues. Patient is refusing to speak with residential mortgage underwriter nolberto murguia, unable to obtain a review of systems. Spoke with the dietitian today as she is concerned about his poor oral intake and stating that over the last 5 days he is minimally eating and not meeting his nutritional needs. Dietitian made suggestions of a possible feeding tube and will hold off on this at this time. Patient is eating Magic cups along with chocolate ice cream multiple times during the day. Will continue to monitor intake and output closely. There is a court hearing scheduled for 8:30 in the morning to obtain temporary guardianship in case management and social work had been working on possible placement for discharge. Will continue to monitor closely. 09/21/2019 Patient is sitting up at the side of the bed in no acute distress. No acute overnight issues. Social work attended a court hearing today and temporary guardianship was obtained. Patient will be seen by court-appointed guardian either today or Tuesday and social work will continue to work on obtaining an accepting facility. Patient was seen by psychiatry today and is not recommending inpatient psychiatric facility and has cleared the patient on a one-on-one sitter at this time. Will continue to monitor closely. Guarded prognosis. 09/22/2019 Patient is currently lying in the bed comfortably. Denied any complaints of chest pain or worsening shortness of breath. Awaiting placement to inpatient psychiatric facility. Patient has been afebrile. No chest pain. No nausea vomiting or abdominal pain. No diarrhea. No other acute overnight issues. 09/23/2019 Patient is lying in the bed comfortably. Cooperative. Denied any chest pain or shortness of breath. No nausea vomiting or abdominal pain. Tolerating oral diet. Elevating inpatient psychiatric unit transfer. No other acute overnight issues. Hemodialysis stable. Current medications reviewed. Objective - Vital Signs Vital signs: Vital Signs Temp 97.5 F L 09/23/19 11:46 Pulse 95 09/23/19 15:03 Resp 16 09/23/19 15:03 BP 159/75 09/23/19 11:46 Pulse Ox 96 09/23/19 11:46 Intake & Output 09/22/19 09/23/19 09/23/19 18:59 06:59 18:59 Intake Total 160 Output Total 200 Balance -40 Intake: Oral 160 Output: Urine 200 Other: Voiding Method Toilet Toilet Toilet # Voids 3 2 5 # Bowel Movements 1 1 - Exam Gen: This is a 74-year-old male sitting at the side of the bed in no acute distress. We'll signs are stable. Temp is 98 F, pulse is 72, respirations are 20, blood pressure is 116/67, oxygen saturation is 95% on room air. HEENT: Head is atraumatic, normocephalic. Patient is legally blind. Sclerae is anicteric. Poor oral hygiene with multiple teeth missing noted NECK: Supple. No JVD. No lymphadenopathy. No thyromegaly. LUNGS: Diminished breath sounds at the bases with a few scattered rhonchi noted. No intercostal retractions. HEART: Cardio S1 and S2 are muffled ABDOMEN: Soft. Bowel sounds are present. No masses. No tenderness. EXTREMITIES: No pedal edema. No calf tenderness. NEUROLOGICAL: Patient is asleep but arousable, alert and oriented x1-2. - Labs CBC & Chem 7: 09/18/19 06:54 09/27/19 09:50 Assessment and Plan Assessment: Change in mental status, possible acute on chronic metabolic encephalopathy, possible acute transient ischemic attack old left basal ganglia lacunar infarct with old left parietal infarct Acute kidney injury Agitation on admission with the risks to self and staff Bilateral carotid stenosis Bilateral blindness Hyperlipidemia Chronic degenerative joint disease History of nicotine dependence Deep vein thrombosis prophylaxis Increased AST History of spinal stenosis history of legal blindness Anxiety/depression Gait dysfunction Full code Recommendations and discussion: Recommend to continue current medications, management, and symptomatic treatment. Sitter was discontinued and psych has cleared the patient at this time. Will continue to monitor closely. Case management and social work are following. Court hearing was today and SW obtained temporary guardianship. Awaiting an accepting facility for placement. PT/OT following. Prognosis is extremely guarded due to his multiple complex medical issues. Further recommendations to follow. Time with Patient: Greater than 30
[2019-09-27] MEDS: traZODone HCL 50 MG TAB PO SCH (21:37)
[2019-09-27] MEDS: MELATONIN 3 MG TABLET PO SCH (21:38)
[2019-09-28] MEDS: HYDROcodone/APAP 10-325MG 1 EACH TAB PO PRN ×5 (02:13→21:08)
[2019-09-28] MEDS: ASPIRIN 81 MG PO SCH (08:04)
[2019-09-28] MEDS: TAMSULOSIN 0.4 MG CAP.ER.24H PO SCH (08:04)
[2019-09-28] MEDS: PANTOPRAZOLE 40 MG TABLET PO SCH (08:04)
[2019-09-28] MEDS: HEPARIN SODIUM,PORCINE 5,000 UNIT/ML 1 ML VIAL SQ SCH ×2 (08:08→21:09)
--- NOTE | 2019-09-28 15:18 | P.PN ---
Subjective Progress Note Date: 09/28/19 Principal diagnosis: This is a 73-year-old male who was recently admitted with change in mental status and is being closely monitored. Patient continues to be confused and belligerent. When talking with the patient today patient was pleasant and calm as he was eating ice cream and per nursing staff that is the only thing that keeps him calm. Neurology and psychiatry were consulted. Neurology has signed off at this time and psychiatry is recommending gathering further information from [employer] as well as his daughter Conchis who may know more information about his medical history. Case management and social problems specialist following. Patient may need possible placement and guardianship as he currently lives at home alone and has visiting nurses come out 2 hours per week to bring him groceries as he will not allow them to enter the home. Currently patient denies any chest pain, shortness of breath, or palpitations. Patient is afebrile. Patient denies any nausea or vomiting and is tolerating diet. Patient does have a sitter at the bedside. Will continue to monitor closely. Guarded prognosis. 09/12/2019 Patient is sitting up in bed in no acute distress eating ice cream. Patient is belligerent upon entering the room and refusing to speak with me unless I bring more ice cream. Unable to obtain a review of systems as he keeps cursing at insurance underwriter sales with each question. Sitter at the bedside. Patient was petitioned today by social work as he is refusing any type of placement but his current apartment. Adult protective services met with social work and patient this am and was witness to his refusal. A court hearing is scheduled this tuesday for possible appointment of temporary guardian as the patient is not appropriate to care for himself and to make his own decisions. Overnight patient pulled his indwelling catheter out and was replaced. No blood or trauma noted on exam today. Patient is currently sitting up in bed in only a diaper and refusing to wear his gown. Will continue to monitor closely. 09/13/2019 Patient is currently lying in bed sleeping with a sitter at the bedside. Per nursing staff no acute overnight issues and patient is calm and cooperative as long as he is receiving "polk mist pop and ice cream". Patient is awaiting a court hearing tomorrow in an attempt to obtain temporary guardianship so placement can be established. Case management and social work are following closely. Patient will continue to work with PT/OT for strength and mobility. Labs done yesterday and within normal limits. Will continue to monitor closely. 09/14/2019 Patient is sitting up in bed in no acute distress. No Acute overnight issues. Social work attended a court hearing today and was not granted temporary guardianship for placement as the guardian had not personally interviewed the patient. A scheduled hearing is rescheduled for next week Tuesday and will attempt for placement at that time. Patient is being followed by psychiatry as he allegedly made previous threats of wanting to harm himself. Patient denies suicidal ideation at this time. Patient becomes agitated and aggressive at staff at times. Will continue to monitor closely. 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 Patient presents with altered mental status, thought to be metabolic encephalopathy versus acute TIA however his mentation is improved. Patient was noticed to be aggressive to staff and there was risking for some himself to his been evaluated by psychiatric service patient was uncooperative and the psychiatrist recommended a second evaluation prior to discharge, currently patient has a sitter at bedside for safety. residential worker on the case for temporal [facility] Hemodynamically he is a stable. Labs are unremarkable and patient denies any other symptoms. He denies chest pain or dyspnea. No abdominal pain. No nausea vomiting. No change in urine or bowel habits. No fever 09/16/2019 Patient is awake and alert and lying In Bed, No New Complaint. Patient Denies Suicidal Ideation or Tendency to Hurt Himself or Others. He says he does not feel weak anymore. Vitals are stable. However his creatinine is elevated at 1.6 compared to 0.9-1.1 up on admission. We will start the patient on IV fluids and check bladder scan. Also will ask for psych follow-up. [facility] 09/17/2019 Patient is awake, not in distress. No new complaint leg no chest pain or dyspnea. No bowel problem or eating difficulty. Patient remains calm with sitter at bedside. Discussed with patient this morning he is willing to cooperate with the psychiatrist to be called. Waiting for early evaluation by psychiatrist as well as social problems specialist working on temporal guardianship 09/18/2019 Patient is awake and calm, no new complaints. No chest pain or dyspnea. He still hemodynamically stable. No abdominal pain. His blood pressure this morning was 124/71, heart rate 76 and saturating 99%. Patient is been afebrile. Renal ultrasound was unremarkable except for pain is improving gradually down to 1. CBC is unremarkable. Bladder scan checked yesterday showing postvoid residual of 0. Continue with normal saline at 75 mg/h 09/19/2019 Patient is sitting up at the site of the bed in no acute distress having conve rsation with the patient sitter. No acute overnight issues. Patient denies any chest pain, shortness of breath, or palpitations. Patient remains afebrile. Patient denies any nausea or vomiting and is tolerating diet. A court hearing is scheduled for this Tuesday to obtain temporary guardianship to assist patient with an ECF or rehab facility. Willl continue to monitor closely. 09/20/2019 Patient is lying in bed sleeping but easily arousable. Patient sitter is at the bedside. No acute overnight issues. Patient is refusing to speak with insurance underwriter sales today, unable to obtain a review of systems. Spoke with the dietitian today as she is concerned about his poor oral intake and stating that over the last 5 days he is minimally eating and not meeting his nutritional needs. Dietitian made suggestions of a possible feeding tube and will hold off on this at this time. Patient is eating Magic cups along with chocolate ice cream multiple times during the day. Will continue to monitor intake and output closely. There is a court hearing scheduled for 8:30 in the morning to obtain temporary guardianship in case management and social work had been working on possible placement for discharge. Will continue to monitor closely. 09/21/2019 Patient is sitting up at the side of the bed in no acute distress. No acute overnight issues. Social work attended a court hearing today and temporary guardianship was obtained. Patient will be seen by court-appointed guardian either today or Tuesday and social work will continue to work on obtaining an accepting facility. Patient was seen by psychiatry today and is not recommending inpatient psychiatric facility and has cleared the patient on a one-on-one sitter at this time. Will continue to monitor closely. Guarded prognosis. 09/22/2019 Patient is currently lying in the bed comfortably. Denied any complaints of chest pain or worsening shortness of breath. Awaiting placement to inpatient psychiatric facility. Patient has been afebrile. No chest pain. No nausea vomiting or abdominal pain. No diarrhea. No other acute overnight issues. 2018 Patient is lying in bed in no acute distress with no acute overnight issues. Patient is currently awaiting placement at an [facility] as his home situation is unsafe. Patient does have a temporary guardianship appointed to him at this time. Case management and social work are following closely in an attempt to find placement within [facility]. Will continue to monitor closely. Patient remains afebrile. Patient denies any nausea or vomiting and has been tolerating food. Patient prefers chocolate ice cream and pop. Psychiatry was following and will continue on an as-needed basis at this time. Per psychiatry recommendations patient is not requiring inpatient psych at this time but would benefit from an [facility] structured facility. Guarded prognosis. 09/25/2019 Patient is lying in bed in no acute distress calling out to staff stating "Center, norco". When talking with the patient he just keeps demanding [place]co. Patient unable to provide a review of systems. No acute overnight issues. Case management and social work are continuing to work on placement for patient as he has a temporary guardian. Will continue to monitor closely. Guarded prognosis. 09/26/2019 Patient is sitting in bed in no acute distress with no acute overnight issues. Patient is afebrile. Vital signs have been stable. Patient continues to refuse food for meals but is eating all of his Magic cups along with ice cream throughout the day. Patient continues to work with PT/OT. Temporary guardian was to meet with the patient today. Social work continues to work on possible placement as they're currently no accepting facilities at this time. Will continue to monitor closely. 09/27/2019 Patient is lying in bed in no acute distress with no acute overnight issues. Patient denies any chest pain, shortness of breath, or palpitations. Patient is afebrile. Patient has not any nausea or vomiting and is tolerating food. Patient continues to eat ice cream and Magic cups and refusing all other food at this time. Awaiting for placement at this time. Will continue to monitor closely. 09/28/2019 Patient is sitting up in bed in no acute distress with no acute overnight is sues. Currently waiting for placement and has obtained temporary guardianship and social work is working on an accepting facility as the patient's home is unsafe to return and there was mention that patient was going to be evicted from his current apartment. Will continue to monitor closely. REVIEW OF SYSTEMS: ENT: diminished vision, no reports of diminished hearing. CARDIOVASCULAR: No reports of chest pain or palpitations RESPIRATORY: No reports of shortness of breath or cough GI: No nausea, vomiting or diarrhea. : No dysuria or retention. NERVOUS SYSTEM: No numbness or weakness. ALLERGY/IMMUNOLOGY: No asthma or hay fever. HEMATOLOGY/ONCOLOGY: No history of anemia. ENDOCRINE: No history of diabetes or hypothyroidism. CONSTITUTIONAL: No reports of fatigue, cooperative PSYCHIATRY: Cooperative, non-suicidal RHEUMATOLOGY: Negative. Active Medications Acetaminophen (Tylenol Tab) 650 mg PO Q6HR PRN Hydrocodone Bitart/Acetaminophen (Center 10) 1 each PO Q4HR PRN Aspirin (Aspirin) 162 mg PO DAILY [facility]AN Heparin Sodium (Porcine) (Heparin) 5,000 unit SQ Q12HR [facility] Lorazepam (Ativan) 1 mg IM Q6HR PRN Melatonin (Melatonin) 6 mg PO HS [facility] Naloxone HCl (Narcan) 0.2 mg IV Q2M PRN Pantoprazole Sodium (Protonix) 40 mg PO AC-BRKFST DARSHAN Tamsulosin HCl (Flomax) 0.4 mg PO DAILY D[facility] Trazodone HCl (Desyrel) 50 mg PO HS [facility] Objective - Vital Signs Vital signs: Vital Signs Temp 98.6 F 09/28/19 07:42 Pulse 83 09/28/19 07:42 Resp 17 09/28/19 07:42 BP 110/62 09/28/19 07:42 Pulse Ox 94 L 09/28/19 07:42 Intake & Output 09/27/19 09/28/19 09/28/19 18:59 06:59 18:59 Intake Total 830 Balance 830 Weight 63.5 kg Intake: Oral 830 Other: Voiding Method Toilet Toilet # Voids 3 1 - Exam Gen: This is a 74-year-old male lying in bed in no acute distress. Vital signs are stable. Temp is 98.3 F, pulse is 83, respirations are 16, blood pressure is 136/79, oxygen saturation is 96 % on room air. HEENT: Head is atraumatic, normocephalic. Patient is legally blind. Sclerae is anicteric. Poor oral hygiene with multiple teeth missing noted NECK: Supple. No JVD. No lymphadenopathy. No thyromegaly. LUNGS: Diminished breath sounds at the bases with no wheezing or rhonchi noted. No intercostal retractions. HEART: Cardio S1 and S2 are muffled ABDOMEN: Soft. Bowel sounds are present. No masses. No tenderness. EXTREMITIES: No pedal edema. No calf tenderness. NEUROLOGICAL: Patient is asleep but arousable, alert and oriented x1-2. - Labs CBC & Chem 7: 09/18/19 06:54 09/27/19 09:50 Labs: Abnormal Lab Results - Last 24 Hours (Table) 09/27/19 Range/Units 09:50 Creatinine 1.37 H (0.66-1.25) mg/dL Glucose 131 H (74-99) mg/dL Assessment and Plan Assessment: Change in mental status, possible acute on chronic metabolic encephalopathy, possible acute transient ischemic attack old left basal ganglia lacunar infarct with old left parietal infarct Acute kidney injury, current creatinine is 1.37 Agitation on admission with the risks to self and staff Bilateral carotid stenosis Bilateral blindness Hyperlipidemia Chronic degenerative joint disease History of nicotine dependence Deep vein thrombosis prophylaxis Increased AST History of spinal stenosis history of legal blindness Anxiety/depression Gait dysfunction Full code Recommendations and discussion: Recommend to continue current medications, management, and symptomatic treatment. Will continue to monitor closely. Case management and social work are following. Awaiting an accepting facility for placement. PT/OT following. Prognosis is extremely guarded due to his multiple complex medical issues. Further recommendations to follow.
[2019-09-28] MEDS: traZODone HCL 50 MG TAB PO SCH (21:08)
[2019-09-28] MEDS: MELATONIN 3 MG TABLET PO SCH (21:08)
[2019-09-29] MEDS: HYDROcodone/APAP 10-325MG 1 EACH TAB PO PRN ×4 (01:12→21:00)
--- NOTE | 2019-09-29 10:56 | P.PN ---
Subjective 73-year-old male who was recently admitted with change in mental status and is being closely monitored. Patient continues to be confused and belligerent. When talking with the patient today patient was pleasant and calm as he was eating ice cream and per nursing staff that is the only thing that keeps him calm. Neurology and psychiatry were consulted. Neurology has signed off at this time and psychiatry is recommending gathering further information from [facility] [employer] as well as his daughter Conchis who may know more information about his medical history. Case management and social service assistant following. Patient may need possible placement and guardianship as he currently lives at home alone and has visiting nurses come out 2 hours per week to bring him groceries as he will not allow them to enter the home. Currently patient denies any chest pain, shortness of breath, or palpitations. Patient is afebrile. Patient denies any nausea or vomiting and is tolerating diet. Patient does have a sitter at the bedside. Will continue to monitor closely. Guarded prognosis. 09/12/2019 Patient is sitting up in bed in no acute distress eating ice cream. Patient is belligerent upon entering the room and refusing to speak with me unless I bring more ice cream. Unable to obtain a review of systems as he keeps cursing at speech writer with each question. Sitter at the bedside. Patient was petitioned today by social work as he is refusing any type of placement but his current apartment. Adult protective services met with social work and patient this am and was witness to his refusal. A court hearing is scheduled this tuesday for po ssible appointment of temporary guardian as the patient is not appropriate to care for himself and to make his own decisions. Overnight patient pulled his indwelling catheter out and was replaced. No blood or trauma noted on exam today. Patient is currently sitting up in bed in only a diaper and refusing to wear his gown. Will continue to monitor closely. 09/13/2019 Patient is currently lying in bed sleeping with a sitter at the bedside. Per nursing staff no acute overnight issues and patient is calm and cooperative as long as he is receiving "polk mist pop and ice cream". Patient is awaiting a court hearing tomorrow in an attempt to obtain temporary guardianship so placement can be established. Case management and social work are following closely. Patient will continue to work with PT/OT for strength and mobility. Labs done yesterday and within normal limits. Will continue to monitor closely. 09/14/2019 Patient is sitting up in bed in no acute distress. No Acute overnight issues. Social work attended a court hearing today and was not granted temporary guardianship for placement as the guardian had not personally interviewed the patient. A scheduled hearing is rescheduled for next week Tuesday and will attempt for placement at that time. Patient is being followed by psychiatry as he allegedly made previous threats of wanting to harm himself. Patient denies suicidal ideation at this time. Patient becomes agitated and aggressive at staff at times. Will continue to monitor closely. 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 Patient presents with altered mental status, thought to be metabolic encephalopathy versus acute TIA however his mentation is improved. Patient was noticed to be aggressive to staff and there was risking for some himself to his been evaluated by psychiatric service patient was uncooperative and the psychiatrist recommended a second evaluation prior to discharge, currently patient has a sitter at bedside for safety. cable worker helper on the case for temporal guardian ship Hemodynamically he is a stable. Labs are unremarkable and patient denies any other symptoms. He denies chest pain or dyspnea. No abdominal pain. No nausea vomiting. No change in urine or bowel habits. No fever 09/16/2019 Patient is awake and alert and lying In Bed, No New Complaint. Patient Denies Suicidal Ideation or Tendency to Hurt Himself or Others. He says he does not feel weak anymore. Vitals are stable. However his creatinine is elevated at 1.6 compared to 0.9-1.1 up on admission. We will start the patient on IV fluids and check bladder scan. Also will ask for psych follow-up. cable worker helper is working on outpatient temporal guardianship. 09/17/2019 Patient is awake, not in distress. No new complaint leg no chest pain or dyspnea. No bowel problem or eating difficulty. Patient remains calm with sitter at bedside. Discussed with patient this morning he is willing to cooperate with the psychiatrist to be called. Waiting for early evaluation by psychiatrist as well as social service assistant working on temporal guardianship 09/18/2019 Patient is awake and calm, no new complaints. No chest pain or dyspnea. He still hemodynamically stable. No abdominal pain. His blood pressure this morning was 124/71, heart rate 76 and saturating 99%. Patient is been afebrile. Renal ultrasound was unremarkable except for pain is improving gradually down to 1. CBC is unremarkable. Bladder scan checked yesterday showing postvoid residual of 0. Continue with normal saline at 75 mg/h 09/19/2019 Patient is sitting up at the site of the bed in no acute distress having con versation with the patient sitter. No acute overnight issues. Patient denies any chest pain, shortness of breath, or palpitations. Patient remains afebrile. Patient denies any nausea or vomiting and is tolerating diet. A court hearing is scheduled for this Tuesday to obtain temporary guardianship to assist patient with an ECF or rehab facility. Willl continue to monitor closely. 09/20/2019 Patient is lying in bed sleeping but easily arousable. Patient sitter is at the bedside. No acute overnight issues. Patient is refusing to speak with speech writer today, unable to obtain a review of systems. Spoke with the dietitian today as she is concerned about his poor oral intake and stating that over the last 5 days he is minimally eating and not meeting his nutritional needs. Dietitian made suggestions of a possible feeding tube and will hold off on this at this time. Patient is eating Magic cups along with chocolate ice cream multiple times during the day. Will continue to monitor intake and output closely. There is a court hearing scheduled for 8:30 in the morning to obtain temporary guardianship in case management and social work had been working on possible placement for discharge. Will continue to monitor closely. 09/21/2019 Patient is sitting up at the side of the bed in no acute distress. No acute overnight issues. Social work attended a court hearing today and temporary guardianship was obtained. Patient will be seen by court-appointed guardian either today or Tuesday and social work will continue to work on obtaining an accepting facility. Patient was seen by psychiatry today and is not recommending inpatient psychiatric facility and has cleared the patient on a one-on-one sitter at this time. Will continue to monitor closely. Guarded prognosis. 09/22/2019 Patient is currently lying in the bed comfortably. Denied any complaints of chest pain or worsening shortness of breath. Awaiting placement to inpatient psychiatric facility. Patient has been afebrile. No chest pain. No nausea vomiting or abdominal pain. No diarrhea. No other acute overnight issues. 2018 Patient is lying in bed in no acute distress with no acute overnight issues. Patient is currently awaiting placement at an [facility] as his home situation is unsafe. Patient does have a temporary guardianship appointed to him at this time. Case management and social work are following closely in an attempt to find placement within [facility]. Will continue to monitor closely. Patient remains afebrile. Patient denies any nausea or vomiting and has been tolerating food. Patient prefers chocolate ice cream and pop. Psychiatry was following and will continue on an as-needed basis at this time. Per psychiatry recommendations patient is not requiring inpatient psych at this time but would benefit from an [facility] structured facility. Guarded prognosis. 09/25/2019 Patient is lying in bed in no acute distress calling out to staff stating "[place], [place]". When talking with the patient he just keeps demanding [place]. Patient unable to provide a review of systems. No acute overnight issues. Case management and social work are continuing to work on placement for patient as he has a temporary guardian. Will continue to monitor closely. Guarded prognosis. 09/26/2019 Patient is sitting in bed in no acute distress with no acute overnight issues. Patient is afebrile. Vital signs have been stable. Patient continues to refuse food for meals but is eating all of his Magic cups along with ice cream throughout the day. Patient continues to work with PT/OT. Temporary guardian was to meet with the patient today. Social work continues to work on possible placement as they're currently no accepting facilities at this time. Will continue to monitor closely. 09/27/2019 Patient is lying in bed in no acute distress with no acute overnight issues. Patient denies any chest pain, shortness of breath, or palpitations. Patient is afebrile. Patient has not any nausea or vomiting and is tolerating food. Patient continues to eat ice cream and Magic cups and refusing all other food at this time. Awaiting for placement at this time. Will continue to monitor closely. 09/28/2019 Patient is sitting up in bed in no acute distress with no acute overnight issues. Currently waiting for placement and has obtained temporary guardianship and social work is working on an accepting facility as the patient's home is unsafe to return and there was mention that patient was going to be evicted from his current apartment. Will continue to monitor closely. 09/29/2019 No overnight events no significant change in his clinical condition just awaiting disposition Objective - Vital Signs Vital signs: Vital Signs Temp 97.7 F 09/29/19 05:00 Pulse 78 09/29/19 05:00 Resp 17 09/29/19 05:00 BP 133/77 09/29/19 05:00 Pulse Ox 97 09/29/19 05:00 Intake & Output 09/28/19 09/29/19 09/29/19 18:59 06:59 18:59 Intake Total 1150 Balance 1150 Intake: Oral 1150 Other: Voiding Method Toilet Toilet # Voids 4 2 - Exam PHYSICAL EXAMINATION: GENERAL: The patient is alert and oriented x2, not in any acute distress. Well developed, well nourished. HEENT: Patient is legally blind. Normocephalic, atraumatic. No pharyngeal erythema. No thyromegaly. CARDIOVASCULAR: S1 and S2 present. No murmurs, rubs, or gallops. PULMONARY: Chest is clear to auscultation, no wheezing or crackles. ABDOMEN: Soft, nontender, nondistended, normoactive bowel sounds. No palpable organomegaly. MUSCULOSKELETAL: No joint swelling or deformity. EXTREMITIES: No cyanosis, clubbing, or pedal edema. NEUROLOGICAL: Gross neurological examination did not reveal any focal deficits. SKIN: No rashes. - Labs CBC & Chem 7: 09/18/19 06:54 09/27/19 09:50 Assessment and Plan Plan: Assessment and Plan Assessment: Change in mental status, possible acute on chronic metabolic encephalopathy, possible acute transient ischemic attack old left basal ganglia lacunar infarct with old left parietal infarct Acute kidney injury, current creatinine is 1.37 Agitation on admission with the risks to self and staff Bilateral carotid stenosis Bilateral blindness Hyperlipidemia Chronic degenerative joint disease History of nicotine dependence Deep vein thrombosis prophylaxis Increased AST History of spinal stenosis history of legal blindness Anxiety/depression Gait dysfunction Full code Continue with Present medications no overnight events awaiting disposition.
[2019-09-29] MEDS: ASPIRIN 81 MG PO SCH (11:01)
[2019-09-29] MEDS: PANTOPRAZOLE 40 MG TABLET PO SCH (11:01)
[2019-09-29] MEDS: HEPARIN SODIUM,PORCINE 5,000 UNIT/ML 1 ML VIAL SQ SCH ×2 (11:01→21:01)
[2019-09-29] MEDS: TAMSULOSIN 0.4 MG CAP.ER.24H PO SCH (11:01)
[2019-09-29] MEDS: SENNOSIDES 8.6 MG TAB PO SCH ×2 (11:02→21:00)
[2019-09-29] MEDS: traZODone HCL 50 MG TAB PO SCH (21:00)
[2019-09-29] MEDS: MELATONIN 3 MG TABLET PO SCH (21:00)
[2019-09-30] MEDS: HYDROcodone/APAP 10-325MG 1 EACH TAB PO PRN ×4 (03:06→20:03)
[2019-09-30] MEDS: TAMSULOSIN 0.4 MG CAP.ER.24H PO SCH (08:08)
[2019-09-30] MEDS: HEPARIN SODIUM,PORCINE 5,000 UNIT/ML 1 ML VIAL SQ SCH ×2 (08:08→20:05)
[2019-09-30] MEDS: ASPIRIN 81 MG PO SCH (08:08)
[2019-09-30] MEDS: PANTOPRAZOLE 40 MG TABLET PO SCH (08:08)
[2019-09-30] MEDS: SENNOSIDES 8.6 MG TAB PO SCH ×2 (08:08→20:02)
--- NOTE | 2019-09-30 09:27 | P.PN ---
Subjective 73-year-old male who was recently admitted with change in mental status and is being closely monitored. Patient continues to be confused and belligerent. When talking with the patient today patient was pleasant and calm as he was eating ice cream and per nursing staff that is the only thing that keeps him calm. Neurology and psychiatry were consulted. Neurology has signed off at this time and psychiatry is recommending gathering further information from [facility] [employer] as well as his daughter Conchis who may know more information about his medical history. Case management and vp digital marketing social media and crm following. Patient may need possible placement and guardianship as he currently lives at home alone and has visiting nurses come out 2 hours per week to bring him groceries as he will not allow them to enter the home. Currently patient denies any chest pain, shortness of breath, or palpitations. Patient is afebrile. Patient denies any nausea or vomiting and is tolerating diet. Patient does have a sitter at the bedside. Will continue to monitor closely. Guarded prognosis. 09/12/2019 Patient is sitting up in bed in no acute distress eating ice cream. Patient is belligerent upon entering the room and refusing to speak with me unless I bring more ice cream. Unable to obtain a review of systems as he keeps cursing at teletypewriter operator with each question. Sitter at the bedside. Patient was petitioned today by social work as he is refusing any type of placement but his current apartment. Adult protective services met with social work and patient this am and was witness to his refusal. A court hearing is scheduled this tuesday for po ssible appointment of temporary guardian as the patient is not appropriate to care for himself and to make his own decisions. Overnight patient pulled his indwelling catheter out and was replaced. No blood or trauma noted on exam today. Patient is currently sitting up in bed in only a diaper and refusing to wear his gown. Will continue to monitor closely. 09/13/2019 Patient is currently lying in bed sleeping with a sitter at the bedside. Per nursing staff no acute overnight issues and patient is calm and cooperative as long as he is receiving "polk mist pop and ice cream". Patient is awaiting a court hearing tomorrow in an attempt to obtain temporary guardianship so placement can be established. Case management and social work are following closely. Patient will continue to work with PT/OT for strength and mobility. Labs done yesterday and within normal limits. Will continue to monitor closely. 09/14/2019 Patient is sitting up in bed in no acute distress. No Acute overnight issues. Social work attended a court hearing today and was not granted temporary guardianship for placement as the guardian had not personally interviewed the patient. A scheduled hearing is rescheduled for next week Tuesday and will attempt for placement at that time. Patient is being followed by psychiatry as he allegedly made previous threats of wanting to harm himself. Patient denies suicidal ideation at this time. Patient becomes agitated and aggressive at staff at times. Will continue to monitor closely. 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 Patient presents with altered mental status, thought to be metabolic encephalopathy versus acute TIA however his mentation is improved. Patient was noticed to be aggressive to staff and there was risking for some himself to his been evaluated by psychiatric service patient was uncooperative and the psychiatrist recommended a second evaluation prior to discharge, currently patient has a sitter at bedside for safety. drawer hardware worker on the case for temporal guardian ship Hemodynamically he is a stable. Labs are unremarkable and patient denies any other symptoms. He denies chest pain or dyspnea. No abdominal pain. No nausea vomiting. No change in urine or bowel habits. No fever 09/16/2019 Patient is awake and alert and lying In Bed, No New Complaint. Patient Denies Suicidal Ideation or Tendency to Hurt Himself or Others. He says he does not feel weak anymore. Vitals are stable. However his creatinine is elevated at 1.6 compared to 0.9-1.1 up on admission. We will start the patient on IV fluids and check bladder scan. Also will ask for psych follow-up. drawer hardware worker is working on outpatient temporal guardianship. 09/17/2019 Patient is awake, not in distress. No new complaint leg no chest pain or dyspnea. No bowel problem or eating difficulty. Patient remains calm with sitter at bedside. Discussed with patient this morning he is willing to cooperate with the psychiatrist to be called. Waiting for early evaluation by psychiatrist as well as vp digital marketing social media and crm working on temporal guardianship 09/18/2019 Patient is awake and calm, no new complaints. No chest pain or dyspnea. He still hemodynamically stable. No abdominal pain. His blood pressure this morning was 124/71, heart rate 76 and saturating 99%. Patient is been afebrile. Renal ultrasound was unremarkable except for pain is improving gradually down to 1. CBC is unremarkable. Bladder scan checked yesterday showing postvoid residual of 0. Continue with normal saline at 75 mg/h 09/19/2019 Patient is sitting up at the site of the bed in no acute distress having con versation with the patient sitter. No acute overnight issues. Patient denies any chest pain, shortness of breath, or palpitations. Patient remains afebrile. Patient denies any nausea or vomiting and is tolerating diet. A court hearing is scheduled for this Tuesday to obtain temporary guardianship to assist patient with an ECF or rehab facility. Willl continue to monitor closely. 09/20/2019 Patient is lying in bed sleeping but easily arousable. Patient sitter is at the bedside. No acute overnight issues. Patient is refusing to speak with teletypewriter operator today, unable to obtain a review of systems. Spoke with the dietitian today as she is concerned about his poor oral intake and stating that over the last 5 days he is minimally eating and not meeting his nutritional needs. Dietitian made suggestions of a possible feeding tube and will hold off on this at this time. Patient is eating Magic cups along with chocolate ice cream multiple times during the day. Will continue to monitor intake and output closely. There is a court hearing scheduled for 8:30 in the morning to obtain temporary guardianship in case management and social work had been working on possible placement for discharge. Will continue to monitor closely. 09/21/2019 Patient is sitting up at the side of the bed in no acute distress. No acute overnight issues. Social work attended a court hearing today and temporary guardianship was obtained. Patient will be seen by court-appointed guardian either today or Tuesday and social work will continue to work on obtaining an accepting facility. Patient was seen by psychiatry today and is not recommending inpatient psychiatric facility and has cleared the patient on a one-on-one sitter at this time. Will continue to monitor closely. Guarded prognosis. 09/22/2019 Patient is currently lying in the bed comfortably. Denied any complaints of chest pain or worsening shortness of breath. Awaiting placement to inpatient psychiatric facility. Patient has been afebrile. No chest pain. No nausea vomiting or abdominal pain. No diarrhea. No other acute overnight issues. 2018 Patient is lying in bed in no acute distress with no acute overnight issues. Patient is currently awaiting placement at an [facility] as his home situation is unsafe. Patient does have a temporary guardianship appointed to him at this time. Case management and social work are following closely in an attempt to find placement within [facility]. Will continue to monitor closely. Patient remains afebrile. Patient denies any nausea or vomiting and has been tolerating food. Patient prefers chocolate ice cream and pop. Psychiatry was following and will continue on an as-needed basis at this time. Per psychiatry recommendations patient is not requiring inpatient psych at this time but would benefit from an [facility] structured facility. Guarded prognosis. 09/25/2019 Patient is lying in bed in no acute distress calling out to staff stating "[place], [place]". When talking with the patient he just keeps demanding [place]. Patient unable to provide a review of systems. No acute overnight issues. Case management and social work are continuing to work on placement for patient as he has a temporary guardian. Will continue to monitor closely. Guarded prognosis. 09/26/2019 Patient is sitting in bed in no acute distress with no acute overnight issues. Patient is afebrile. Vital signs have been stable. Patient continues to refuse food for meals but is eating all of his Magic cups along with ice cream throughout the day. Patient continues to work with PT/OT. Temporary guardian was to meet with the patient today. Social work continues to work on possible placement as they're currently no accepting facilities at this time. Will continue to monitor closely. 09/27/2019 Patient is lying in bed in no acute distress with no acute overnight issues. Patient denies any chest pain, shortness of breath, or palpitations. Patient is afebrile. Patient has not any nausea or vomiting and is tolerating food. Patient continues to eat ice cream and Magic cups and refusing all other food at this time. Awaiting for placement at this time. Will continue to monitor closely. 09/28/2019 Patient is sitting up in bed in no acute distress with no acute overnight issues. Currently waiting for placement and has obtained temporary guardianship and social work is working on an accepting facility as the patient's home is unsafe to return and there was mention that patient was going to be evicted from his current apartment. Will continue to monitor closely. 09/29/2019 No overnight events no significant change in his clinical condition just awaiting disposition 09/30/2019 No overnight events patient has a sitter just for company. Constitutional: Denied any fatigue denied any fever. Cardio vascular: denied any chest pain, palpitations Gastrointestinal denied any nausea vomiting Pulmonary: Denied any shortness of breath cough Neurologic denied any new focal deficits All inpatient medications were reviewed and appropriate changes in these medications as dictated in the interval history and assessment and plan. Objective - Vital Signs Vital signs: Vital Signs Temp 97.5 F L 09/30/19 04:47 Pulse 78 09/30/19 04:47 Resp 16 09/30/19 04:47 BP 127/81 09/30/19 04:47 Pulse Ox 95 09/30/19 04:47 Intake & Output 09/29/19 09/30/19 09/30/19 18:59 06:59 18:59 Intake Total 360 Balance 360 Weight 63.5 kg Intake: Oral 360 Other: Voiding Method Toilet Toilet Toilet # Voids 4 2 - Exam PHYSICAL EXAMINATION: GENERAL: The patient is alert and oriented x2, not in any acute distress. Well developed, well nourished. HEENT: Patient is legally blind. Normocephalic, atraumatic. No pharyngeal er ythema. No thyromegaly. CARDIOVASCULAR: S1 and S2 present. No murmurs, rubs, or gallops. PULMONARY: Chest is clear to auscultation, no wheezing or crackles. ABDOMEN: Soft, nontender, nondistended, normoactive bowel sounds. No palpable organomegaly. MUSCULOSKELETAL: No joint swelling or deformity. EXTREMITIES: No cyanosis, clubbing, or pedal edema. NEUROLOGICAL: Gross neurological examination did not reveal any focal deficits. SKIN: No rashes. - Labs CBC & Chem 7: 09/18/19 06:54 09/27/19 09:50 Assessment and Plan Plan: Assessment and Plan Assessment: Change in mental status, possible acute on chronic metabolic encephalopathy, possible acute transient ischemic attack old left basal ganglia lacunar infarct with old left parietal infarct Acute kidney injury, current creatinine is 1.37 Agitation on admission with the risks to self and staff Bilateral carotid stenosis Bilateral blindness Hyperlipidemia Chronic degenerative joint disease History of nicotine dependence Deep vein thrombosis prophylaxis Increased AST History of spinal stenosis history of legal blindness Anxiety/depression Gait dysfunction Full code Continue with Present medications no overnight events awaiting disposition.
[2019-09-30] MEDS: traZODone HCL 50 MG TAB PO SCH (20:03)
[2019-09-30] MEDS: MELATONIN 3 MG TABLET PO SCH (20:03)
[2019-10-01] MEDS: HYDROcodone/APAP 10-325MG 1 EACH TAB PO PRN ×4 (04:25→19:05)
[2019-10-01] MEDS: HEPARIN SODIUM,PORCINE 5,000 UNIT/ML 1 ML VIAL SQ SCH ×2 (07:59→21:13)
[2019-10-01] MEDS: ASPIRIN 81 MG PO SCH (07:59)
[2019-10-01] MEDS: PANTOPRAZOLE 40 MG TABLET PO SCH (07:59)
[2019-10-01] MEDS: SENNOSIDES 8.6 MG TAB PO SCH ×2 (07:59→21:09)
[2019-10-01] MEDS: TAMSULOSIN 0.4 MG CAP.ER.24H PO SCH ×2 (07:59→08:01)
--- NOTE | 2019-10-01 12:22 | P.PN ---
Subjective Progress Note Date: 10/01/19 Principal diagnosis: This is a 73-year-old male who was recently admitted with change in mental status and is being closely monitored. Patient continues to be confused and belligerent. When talking with the patient today patient was pleasant and calm as he was eating ice cream and per nursing staff that is the only thing that keeps him calm. Neurology and psychiatry were consulted. Neurology has signed off at this time and psychiatry is recommending gathering further information from [employer] as well as his daughter Conchis who may know more information about his medical history. Case management and social media marketing manager following. Patient may need possible placement and guardianship as he currently lives at home alone and has visiting nurses come out 2 hours per week to bring him groceries as he will not allow them to enter the home. Currently patient denies any chest pain, shortness of breath, or palpitations. Patient is afebrile. Patient denies any nausea or vomiting and is tolerating diet. Patient does have a sitter at the bedside. Will continue to monitor closely. Guarded prognosis. 09/12/2019 Patient is sitting up in bed in no acute distress eating ice cream. Patient is belligerent upon entering the room and refusing to speak with me unless I bring more ice cream. Unable to obtain a review of systems as he keeps cursing at typewriter assembly and parts inspector with each question. Sitter at the bedside. Patient was petitioned today by social work as he is refusing any type of placement but his current apartment. Adult protective services met with social work and patient this am and was witness to his refusal. A court hearing is scheduled this tuesday for possible appointment of temporary guardian as the patient is not appropriate to care for himself and to make his own decisions. Overnight patient pulled his indwelling catheter out and was replaced. No blood or trauma noted on exam today. Patient is currently sitting up in bed in only a diaper and refusing to wear his gown. Will continue to monitor closely. 09/13/2019 Patient is currently lying in bed sleeping with a sitter at the bedside. Per nursing staff no acute overnight issues and patient is calm and cooperative as long as he is receiving "polk mist pop and ice cream". Patient is awaiting a court hearing tomorrow in an attempt to obtain temporary guardianship so placement can be established. Case management and social work are following closely. Patient will continue to work with PT/OT for strength and mobility. Labs done yesterday and within normal limits. Will continue to monitor closely. 09/14/2019 Patient is sitting up in bed in no acute distress. No Acute overnight issues. Social work attended a court hearing today and was not granted temporary guardianship for placement as the guardian had not personally interviewed the patient. A scheduled hearing is rescheduled for next week Tuesday and will attempt for placement at that time. Patient is being followed by psychiatry as he allegedly made previous threats of wanting to harm himself. Patient denies suicidal ideation at this time. Patient becomes agitated and aggressive at staff at times. Will continue to monitor closely. 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 Patient presents with altered mental status, thought to be metabolic encephalopathy versus acute TIA however his mentation is improved. Patient was noticed to be aggressive to staff and there was risking for some himself to his been evaluated by psychiatric service patient was uncooperative and the psychiatrist recommended a second evaluation prior to discharge, currently patient has a sitter at bedside for safety. cabinet worker on the case for temporal [facility] Hemodynamically he is a stable. Labs are unremarkable and patient denies any other symptoms. He denies chest pain or dyspnea. No abdominal pain. No nausea vomiting. No change in urine or bowel habits. No fever 09/16/2019 Patient is awake and alert and lying In Bed, No New Complaint. Patient Denies Suicidal Ideation or Tendency to Hurt Himself or Others. He says he does not feel weak anymore. Vitals are stable. However his creatinine is elevated at 1.6 compared to 0.9-1.1 up on admission. We will start the patient on IV fluids and check bladder scan. Also will ask for psych follow-up. [facility] 09/17/2019 Patient is awake, not in distress. No new complaint leg no chest pain or dyspnea. No bowel problem or eating difficulty. Patient remains calm with sitter at bedside. Discussed with patient this morning he is willing to cooperate with the psychiatrist to be called. Waiting for early evaluation by psychiatrist as well as social media marketing manager working on temporal guardianship 09/18/2019 Patient is awake and calm, no new complaints. No chest pain or dyspnea. He still hemodynamically stable. No abdominal pain. His blood pressure this morning was 124/71, heart rate 76 and saturating 99%. Patient is been afebrile. Renal ultrasound was unremarkable except for pain is improving gradually down to 1. CBC is unremarkable. Bladder scan checked yesterday showing postvoid residual of 0. Continue with normal saline at 75 mg/h 09/19/2019 Patient is sitting up at the site of the bed in no acute distress having conve rsation with the patient sitter. No acute overnight issues. Patient denies any chest pain, shortness of breath, or palpitations. Patient remains afebrile. Patient denies any nausea or vomiting and is tolerating diet. A court hearing is scheduled for this Tuesday to obtain temporary guardianship to assist patient with an ECF or rehab facility. Willl continue to monitor closely. 09/20/2019 Patient is lying in bed sleeping but easily arousable. Patient sitter is at the bedside. No acute overnight issues. Patient is refusing to speak with typewriter assembly and parts inspector today, unable to obtain a review of systems. Spoke with the dietitian today as she is concerned about his poor oral intake and stating that over the last 5 days he is minimally eating and not meeting his nutritional needs. Dietitian made suggestions of a possible feeding tube and will hold off on this at this time. Patient is eating Magic cups along with chocolate ice cream multiple times during the day. Will continue to monitor intake and output closely. There is a court hearing scheduled for 8:30 in the morning to obtain temporary guardianship in case management and social work had been working on possible placement for discharge. Will continue to monitor closely. 09/21/2019 Patient is sitting up at the side of the bed in no acute distress. No acute overnight issues. Social work attended a court hearing today and temporary guardianship was obtained. Patient will be seen by court-appointed guardian either today or Tuesday and social work will continue to work on obtaining an accepting facility. Patient was seen by psychiatry today and is not recommending inpatient psychiatric facility and has cleared the patient on a one-on-one sitter at this time. Will continue to monitor closely. Guarded prognosis. 09/22/2019 Patient is currently lying in the bed comfortably. Denied any complaints of chest pain or worsening shortness of breath. Awaiting placement to inpatient psychiatric facility. Patient has been afebrile. No chest pain. No nausea vomiting or abdominal pain. No diarrhea. No other acute overnight issues. 2018 Patient is lying in bed in no acute distress with no acute overnight issues. Patient is currently awaiting placement at an [facility] as his home situation is unsafe. Patient does have a temporary guardianship appointed to him at this time. Case management and social work are following closely in an attempt to find placement within [facility]. Will continue to monitor closely. Patient remains afebrile. Patient denies any nausea or vomiting and has been tolerating food. Patient prefers chocolate ice cream and pop. Psychiatry was following and will continue on an as-needed basis at this time. Per psychiatry recommendations patient is not requiring inpatient psych at this time but would benefit from an [facility] structured facility. Guarded prognosis. 09/25/2019 Patient is lying in bed in no acute distress calling out to staff stating "[place], [place]". When talking with the patient he just keeps demanding [place]. Patient unable to provide a review of systems. No acute overnight issues. Case management and social work are continuing to work on placement for patient as he has a temporary guardian. Will continue to monitor closely. Guarded prognosis. 09/26/2019 Patient is sitting in bed in no acute distress with no acute overnight issues. Patient is afebrile. Vital signs have been stable. Patient continues to refuse food for meals but is eating all of his Magic cups along with ice cream throughout the day. Patient continues to work with PT/OT. Temporary guardian was to meet with the patient today. Social work continues to work on possible placement as they're currently no accepting facilities at this time. Will continue to monitor closely. 09/27/2019 Patient is lying in bed in no acute distress with no acute overnight issues. Patient denies any chest pain, shortness of breath, or palpitations. Patient is afebrile. Patient has not any nausea or vomiting and is tolerating food. Patient continues to eat ice cream and Magic cups and refusing all other food at this time. Awaiting for placement at this time. Will continue to monitor closely. 09/28/2019 Patient is sitting up in bed in no acute distress with no acute overnight is sues. Currently waiting for placement and has obtained temporary guardianship and social work is working on an accepting facility as the patient's home is unsafe to return and there was mention that patient was going to be evicted from his current apartment. Will continue to monitor closely. 09/29/2019 No overnight events no significant change in his clinical condition just awaiting disposition 09/30/2019 No overnight events patient has a sitter just for company. 10/01/2019 Patient is lying in bed sleeping but easily arousable in no acute distress. No acute overnight issues. Will continue to wait for placement as social work is still working on an excepting facility. Will continue to monitor closely. Objective - Vital Signs Vital signs: Vital Signs Temp 97.7 F 10/01/19 05:00 Pulse 73 10/01/19 05:00 Resp 16 10/01/19 05:00 BP 132/85 10/01/19 05:00 Pulse Ox 99 10/01/19 05:00 Intake & Output 09/30/19 10/01/19 10/01/19 18:59 06:59 18:59 Intake Total 225 Balance 225 Intake: Oral 225 Other: Voiding Method Toilet Toilet Toilet # Voids 6 5 - Exam Gen: This is a 74-year-old male lying in bed in no acute distress. Well- developed, well-nourished. HEENT: Head is atraumatic, normocephalic. Patient is legally blind. Sclerae is anicteric. Poor oral hygiene with multiple teeth missing noted NECK: Supple. No JVD. No lymphadenopathy. No thyromegaly. LUNGS: Diminished breath sounds at the bases with no wheezing or rhonchi noted. No intercostal retractions. HEART: Cardio S1 and S2 are muffled ABDOMEN: Soft. Bowel sounds are present. No masses. No tenderness. EXTREMITIES: No pedal edema. No calf tenderness. NEUROLOGICAL: Patient is asleep but arousable, alert and oriented x1-2. - Labs CBC & Chem 7: 09/18/19 06:54 09/27/19 09:50 Assessment and Plan Assessment: Change in mental status, possible acute on chronic metabolic encephalopathy, possible acute transient ischemic attack old left basal ganglia lacunar infarct with old left parietal infarct Acute kidney injury Agitation on admission with the risks to self and staff Bilateral carotid stenosis Bilateral blindness Hyperlipidemia Chronic degenerative joint disease History of nicotine dependence Deep vein thrombosis prophylaxis Increased AST History of spinal stenosis history of legal blindness Anxiety/depression Gait dysfunction Full code Recommendations and discussion: Recommend to continue current medications, management, and symptomatic treatment. Will continue to monitor closely. Case management and social work are following. Awaiting an accepting facility for placement. PT/OT following. Further recommendations to follow.
[2019-10-01] MEDS: MELATONIN 3 MG TABLET PO SCH (21:09)
[2019-10-01] MEDS: traZODone HCL 50 MG TAB PO SCH (21:09)
[2019-10-01 21:21] VITALS: RESP 18
[2019-10-02] MEDS: HEPARIN SODIUM,PORCINE 5,000 UNIT/ML 1 ML VIAL SQ SCH (07:16)
[2019-10-02] MEDS: PANTOPRAZOLE 40 MG TABLET PO SCH (07:16)
[2019-10-02] MEDS ORDERED: diphenhydrAMINE 25 MG CAP PO STA (07:20)
[2019-10-02] MEDS: ASPIRIN 81 MG PO SCH (07:33)
[2019-10-02] MEDS: HYDROcodone/APAP 10-325MG 1 EACH TAB PO PRN (07:33)
[2019-10-02] MEDS: SENNOSIDES 8.6 MG TAB PO SCH (07:33)
[2019-10-02] MEDS: TAMSULOSIN 0.4 MG CAP.ER.24H PO SCH (07:33)
[2019-10-02 12:16] VITALS: BP 185/79; PULSE 92; TEMP 97.7
--- NOTE | 2019-10-02 13:56 | P.DS ---
Providers Date of admission: 09/11/19 09:35 Expected date of discharge: 10/02/19 Attending physician: Edmund Duncan Consults: 09/10/19 14:31 Consult Physician Routine Consulting Provider: Neeta Kumar Consult Reason/Comments: altered mental status Do you want consulting provider notified?: Yes Primary care physician: [facility] Course: Final diagnosis Change in mental status, possible acute on chronic metabolic encephalopathy, possible acute transient ischemic attack old left basal ganglia lacunar infarct with old left parietal infarct Acute kidney injury Agitation on admission with the risks to self and staff Bilateral carotid stenosis Bilateral blindness Hyperlipidemia Chronic degenerative joint disease History of nicotine dependence Deep vein thrombosis prophylaxis Increased AST History of spinal stenosis history of legal blindness Anxiety/depression Gait dysfunction Full code Discharge disposition Patient is being discharged in a stable condition with guarded prognosis to [facility]. Patient will follow-up with primary care provider upon discharge. Total time taken is 35 minutes. History of present illness This is a 74-year-old male who was recently admitted with change in mental status and was being closely monitored. Patient was found in his apartment yelling out having confusion and being belligerent and was brought into the hosp [facility] for evaluation. Patient was seen by neurology as well as psychiatry and recommending outpatient follow-up with psychiatry as needed. Patient's living conditions were unkempt and not safe for return. Patient was appointed a temporary guardian and is to have a court date for permanent guardianship at a later time. Currently patient's condition is stable and is ready for discharge. Patient will need continued PT/OT therapy for strength and mobility as the patient is legally blind. Patient denies any chest pain, shortness of breath, or palpitations at this time. Patient has been afebrile. Patient denies nausea or vomiting and has been tolerating diet. Patient enjoys chocolate ice cream and has been refusing meals at times and requesting ice cream. Patient has also been eating Magic cups for protein. Guarded prognosis. On exam vital signs are stable. Temp is 97.7F, pulse is 92, respirations are 18, blood pressure is 116/67, oxygen saturation is 96% on room air. Cardio S1, S2 are present. Respiratory system shows diminished breath sounds at the bases otherwise clear to auscultation. Abdomen is soft, thin, nontender. Nervous system shows no focal deficits with mild diffuse weakness. Please refer to medication reconciliation sheet for a list of medications. Patient Condition at Discharge: Fair Plan - Discharge Summary Discharge Rx Participant: No New Discharge Prescriptions: New traZODone HCL [Desyrel] 50 mg PO HS #3 tab HYDROcodone/APAP 10-325MG [Crumpler 10-325] 1 each PO Q4HR PRN #4 tab PRN Reason: Moderate Pain Pantoprazole [Protonix] 40 mg PO AC-BRKFST tablet.dr Rawls [Senokot] 8.6 mg PO BID tab Acetaminophen Tab [Tylenol] 650 mg PO Q6HR PRN tab PRN Reason: Mild Pain Or Fever > 100.5 Continue Melatonin 6 mg PO HS Aspirin EC [Ecotrin Low Dose] 162 mg PO DAILY Atorvastatin Calcium [Lipitor] 20 mg PO HS #30 tab Tamsulosin [Flomax] 0.4 mg PO DAILY Discontinued HYDROcodone/APAP 10-325MG [Crumpler 10-325] 2 tab PO QID PRN PRN Reason: Pain traZODone HCL 50 mg PO HS Naloxone HCl [Narcan] 4 mg NASAL DIRECTED Discharge Medication List Aspirin EC [Ecotrin Low Dose] 162 mg PO DAILY 05/22/18 [History] Melatonin 6 mg PO HS 05/22/18 [History] Atorvastatin Calcium [Lipitor] 20 mg PO HS #30 tab 05/28/18 [Rx] Tamsulosin [Flomax] 0.4 mg PO DAILY 05/18/19 [History] Acetaminophen Tab [Tylenol] 650 mg PO Q6HR PRN tab 10/02/19 [Rx] HYDROcodone/APAP 10-325MG [Crumpler 10-325] 1 each PO Q4HR PRN #4 tab 10/02/19 [Rx] Pantoprazole [Protonix] 40 mg PO AC-BRKFST tablet. 10/02/19 [Rx] Sennosides [Senokot] 8.6 mg PO BID tab 10/02/19 [Rx] traZODone HCL [Desyrel] 50 mg PO HS #3 tab 10/02/19 [Rx] Follow up Appointment(s)/Referral(s): [facility] [Primary Care Provider] - 1-2 days Activity/Diet/Wound Care/Special Instructions: Patient is going to [facility] Activity as tolerated Continue working with PT/OT Follow up with primary care provider upon discharge Continue current diet Discharge Disposition: TRANSFER TO SNF/ECF
[2019-10-02] MEDS ORDERED: HYDROcodone/APAP 10-325MG 1 EACH TAB PO PRN (13:57)
== END 2019-10-02 15:58 | DRG 67 ==
LOC: EC 04:14 → 3NMEDONC 09:01 → OBSVTOIN 09-11 09:35 → EEVIPCON 09-11 09:35 → 3NMEDONC 09-18 11:33
PROVIDERS: ADMIT Hospitalist; ATTEND Hospitalist
DX: I65.23 Occlusion and stenosis of bilateral carotid arteries (principal); G93.41 Metabolic encephalopathy; N17.9 Acute kidney failure, unspecified; E78.5 Hyperlipidemia, unspecified; F17.200 Nicotine dependence, unspecified, uncomplicated; H54.8 Legal blindness, as defined in USA; H91.90 Unspecified hearing loss, unspecified ear; M19.90 Unspecified osteoarthritis, unspecified site; F43.20 Adjustment disorder, unspecified; G47.00 Insomnia, unspecified; G89.29 Other chronic pain; H40.9 Unspecified glaucoma; M48.00 Spinal stenosis, site unspecified; M54.5 Low back pain; R21 Rash and other nonspecific skin eruption; R26.9 Unspecified abnormalities of gait and mobility; R45.1 Restlessness and agitation; R32 Unspecified urinary incontinence; F41.9 Anxiety disorder, unspecified; F32.9 Major depressive disorder, single episode, unspecified; Z79.82 Long term (current) use of aspirin; Z79.899 Other long term (current) drug therapy; Z86.73 Personal history of transient ischemic attack (TIA), and cerebral infarction without residual deficits; Z91.19 Patient's noncompliance with other medical treatment and regimen; Z89.021 Acquired absence of right finger(s); Z98.42 Cataract extraction status, left eye; Z98.41 Cataract extraction status, right eye; Z96.1 Presence of intraocular lens; W19.XXXA Unspecified fall, initial encounter; Y92.009 Unspecified place in unspecified non-institutional (private) residence as the place of occurrence of the external cause
CPT/HCPCS: 36415; 70450; 71046; 76770; 80048; 80053; 80306; 81001; 82075; 82553; 83605; 84484; 85025; 85610; 85730; 87040; 87086; 93005; 94760; 99285